=== PATIENT | male | born 1960 | race Two or more races ===

== ENCOUNTER 2017-01-04 13:43 | Emergency (ER) | payer BC, OTHER ==
--- NOTE | 2017-01-04 14:29 | ER Document Report ---
ED Medical Screen (RME) - General Stated Complaint: ABDOMINAL PAIN Notes: patient is a 56 year old male who was recently discharged [facility] on . had most recent paracentesis on 01/01. h/o etoh abuse p/w leaking at one of the sites and abdominal pain f/u with [facility] for 01/10 I have greeted and performed a rapid initial assessment of this patient. A comprehensive ED assessment and evaluation of the patient, analysis of test results and completion of the medical decision making process will be conducted by additional ED providers. TRAVEL OUTSIDE OF THE [place] IN LAST 30 DAYS: No Past Medical History - Immunizations Hx Diphtheria, Pertussis, Tetanus Vaccination: Yes
[2017-01-04 15:49] LABS: ABSOLUTE EOSINOPHILS # (AUTO) 0.1 10^3/uL (0.0-0.6); ABSOLUTE LYMPHOCYTES (AUTO) 0.2 10^3/uL (0.5-4.7); ABSOLUTE MONOCYTES (AUTO) 0.4 10^3/uL (0.1-1.4); ABSOLUTE NEUT (AUTO) 2.1 10^3/uL (1.7-8.2); BASOPHILS % (AUTO) 0.8 % (0-2); EOSINOPHILS % (AUTO) 3.3 % (0-6); HEMATOCRIT 28.1 % (37.9-51.0); HEMOGLOBIN 9.8 g/dL (13.5-17.0); HGB HCT DIFFERENCE 1.3; LYMPHOCYTES % (AUTO) 8.3 % (13-45); MEAN CORPUSCULAR HEMOGLOBIN 36.8 pg (27.0-33.4); MEAN CORPUSCULAR HGB CONC 34.8 g/dL (32.0-36.0); MEAN CORPUSCULAR VOLUME 106 fl (80-97); MONOCYTES % (AUTO) 12.5 % (3-13); RED BLOOD COUNT 2.66 10^6/uL (4.35-5.55); RED CELL DISTRIBUTION WIDTH 16.7 % (11.5-14.0); SEGMENTED NEUTROPHILS % (AUTO) 75.1 % (42-78); WHITE BLOOD COUNT 2.8 10^3/uL (4.0-10.5)
[2017-01-04 15:59] LABS: ALANINE AMINOTRANSFERASE 31 U/L (21-72); ALBUMIN 2.6 g/dL (3.5-5.0); ALKALINE PHOSPHATASE 238 U/L (38-126); ANION GAP 8 (5-19); ASPARTATE AMINO TRANSFERASE 59 U/L (17-59); BILIRUBIN,DIRECT 0.1 mg/dL (0.0-0.3); BILIRUBIN,TOTAL 5.9 mg/dL (0.2-1.3); BLOOD UREA NITROGEN 20 mg/dL (7-20); CALCIUM 8.2 mg/dL (8.4-10.2); CARBON DIOXIDE 25 mmol/L (22-30); CHLORIDE 101 mmol/L (98-107); GLUCOSE 115 mg/dL (75-110); LIPASE 219.9 U/L (23-300); TOTAL PROTEIN 7.3 g/dL (6.3-8.2)
--- NOTE | 2017-01-04 19:49 | ER Document Report ---
ED General - General Chief Complaint: Incision Drainage Stated Complaint: ABDOMINAL PAIN Time seen by provider: 19:44 Mode of Arrival: Ambulatory Information source: Patient Notes: 56-year-old male presents to ED for leakage from his paracentesis that was done on 01/01/17 there is no drainage no redness to the area. He had a saturated dressing over the area which was removed. TRAVEL OUTSIDE OF THE [place] IN LAST 30 DAYS: No - HPI Onset: Other - Paracentesis on 01/01/2017 Onset/Duration: Persistent Quality of pain: Achy Severity: Moderate Pain Level: 4 Associated symptoms: Other - Leakage from paracentesis site Exacerbated by: Movement Relieved by: Denies Similar symptoms previously: Yes Recently seen / treated by doctor: Yes - Related Data Allergies/Adverse Reactions: No Known Allergies Allergy (Unverified 01/04/17 14:27) Past Medical History - General Information source: Patient - Social History Smoking Status: Former Smoker Chew tobacco use (# tins/day): No Frequency of alcohol use: None - Former alcoholic states he does not drink now Drug Abuse: None Occupation: none Lives with: Family Family History: Arthritis, CAD, CVA, Hyperlipidemia, Hypertension Patient has suicidal ideation: No Patient has homicidal ideation: No - Past Medical History Cardiac Medical History: Reports: None Pulmonary Medical History: Reports: None EENT Medical History: Reports: None Neurological Medical History: Reports: None Endocrine Medical History: Reports: None Renal/ Medical History: Reports: None GI Medical History: Reports: Hx Cirrhosis - With ascites Musculoskeltal Medical History: Reports Hx Arthritis, Reports Hx Musculoskeletal Trauma - Fractured right ankle left knee and left rotator cuff injury Skin Medical History: Reports None Psychiatric Medical History: Reports: None Traumatic Medical History: Reports: Hx Fractures Infectious Medical History: Reports: None Past Surgical History: Reports: Hx Abdominal Surgery - multiple paracentesis fo , Hx Orthopedic Surgery - Repair of left knee fractured right ankle fracture, Hx Umbilical Hernia - Immunizations Hx Diphtheria, Pertussis, Tetanus Vaccination: Yes Review of Systems - Review of Systems Constitutional: No symptoms reported EENT: No symptoms reported Cardiovascular: No symptoms reported Respiratory: No symptoms reported Gastrointestinal: Abdomen distended - Ascites, Abdominal pain, Other - Paracentesis site draining Genitourinary: No symptoms reported Male Genitourinary: No symptoms reported Musculoskeletal: No symptoms reported Skin: No symptoms reported Hematologic/Lymphatic: No symptoms reported Neurological/Psychological: No symptoms reported -: Yes All other systems reviewed and negative Physical Exam - Vital signs Vitals: Temp Pulse Resp BP Pulse Ox 97.7 F 87 102 H 119/72 100 01/04/17 14:27 01/04/17 14:27 01/04/17 14:27 01/04/17 14:27 01/04/17 14:27 Interpretation: Normal - General General appearance: Appears well, Alert - HEENT Head: Normocephalic, Atraumatic Eyes: Normal Pupils: PERRL - Respiratory Respiratory status: No respiratory distress Chest status: Nontender Breath sounds: Normal Chest palpation: Normal - Cardiovascular Rhythm: Regular Heart sounds: Normal auscultation Murmur: No - Abdominal Inspection: Normal Distension: Distended, Tympanitic, Other - Ascites Bowel sounds: Normal Tenderness: Tender - Generalized Organomegaly: No organomegaly - Back Back: Normal, Nontender - Extremities General upper extremity: Normal inspection, Nontender, Normal color, Normal ROM , Normal temperature General lower extremity: Normal inspection, Nontender, Normal color, Normal ROM , Normal temperature, Normal weight bearing. No: Summer's sign - Neurological Neuro grossly intact: Yes Cognition: Normal Orientation: AAOx4 [place] Coma Scale Eye Opening: Spontaneous Christina Coma Scale Verbal: Oriented [place] Coma Scale Motor: Obeys Commands [place] Coma Scale Total: 15 Speech: Normal Motor strength normal: LUE, RUE, LLE, RLE Sensory: Normal - Psychological Associated symptoms: Normal affect, Normal mood - Skin Skin Temperature: Warm Skin Moisture: Dry Skin Color: Normal Location of irregularity: Abdomen - Paracentesis site leaking no redness or inflammation at the site Course - Re-evaluation Re-evalutation: 01/04/17 19:48 Rest the knee flange and pouch attached over top of her centesis site to catch drainage and prevent infection of the skin. Patient and instructed on how to apply the appliance and change the back. Patient and instructed to call [facility] and informed them that the site is draining and what has been done through the site. - Vital Signs Vital signs: Temp Pulse Resp BP Pulse Ox 98.5 F 18 L 18 119/62 73 L 01/04/17 20:10 01/04/17 20:10 01/04/17 20:10 01/04/17 20:10 01/04/17 20:10 - Laboratory Result Diagrams: 01/04/17 15:15 01/04/17 15:15 Laboratory results interpreted by me: 01/04/17 01/04/17 15:15 15:15 WBC 2.8 L RBC 2.66 L Hgb 9.8 L Hct 28.1 L MCV 106 H MCH 36.8 H RDW 16.7 H Plt Count 59 L Lymphocytes % 8.3 L Absolute Lymphocytes 0.2 L Sodium 134.0 L Glucose 115 H Calcium 8.2 L Total Bilirubin 5.9 H Alkaline Phosphatase 238 H Albumin 2.6 L Discharge - Discharge Clinical Impression: Ascites due to alcoholic cirrhosis, drainage from paracentesis site left abd Condition: Stable Disposition: HOME, SELF-CARE Additional Instructions: You have her having drainage from your paracentesis site. It is important at this site be kept clean and the contents not stay on your skin. I've applied a drainage bag to the site to collect the drainage. You have been instructed on how to change the bag and change the appliance. She states you have a home health nurse that checks on him they were also be able to help you change the appliance. Please call [facility] and let them know that she paracentesis site is continuing to drain and we have applied a drainage appliance to the site. Please measure all drainage removed from the site and keep a record to follow- up with your lamination spinner. Return to the ED for any complications any increase in fever any redness or irritation to the site or any other questions. FOLLOW-UP CARE: If you have been referred to a physician for follow-up care, call the physician s office for an appointment as you were instructed or within the next two days. If you experience worsening or a significant change in your symptoms, notify the physician immediately or return to the Emergency Department at any time for re-evaluation. Referrals: ОЛЬГА ARVIZU MD [ACTIVE STAFF] - Follow up as needed
[2017-01-04 21:04] VITALS: BP 119/62
== END 2017-01-04 20:10 | disposition home or self-care (01) ==
LOC: ER 13:43
DX: K70.31 Alcoholic cirrhosis of liver with ascites (principal); Z98.890 Other specified postprocedural states; Z87.891 Personal history of nicotine dependence
CPT/HCPCS: 36415; 80053; 82140; 83690; 85025; 99283

== ENCOUNTER 2017-02-18 07:51 | Day surgery (SDC) | payer BC, OTHER ==
[~2017-02-18 07:51] MED LIST: ALBUMIN HUMAN 200 ML IV PRN
[2017-02-18 08:40] LABS: ABSOLUTE EOSINOPHILS # (AUTO) 0.1 10^3/uL (0.0-0.6); ABSOLUTE LYMPHOCYTES (AUTO) 0.3 10^3/uL (0.5-4.7); ABSOLUTE MONOCYTES (AUTO) 0.3 10^3/uL (0.1-1.4); ABSOLUTE NEUT (AUTO) 1.5 10^3/uL (1.7-8.2); BASOPHILS % (AUTO) 1.6 % (0-2); EOSINOPHILS % (AUTO) 3.7 % (0-6); HEMATOCRIT 30.1 % (37.9-51.0); HGB HCT DIFFERENCE 2.9; MEAN CORPUSCULAR HEMOGLOBIN 37.5 pg (27.0-33.4); MEAN CORPUSCULAR HGB CONC 36.5 g/dL (32.0-36.0); MEAN CORPUSCULAR VOLUME 103 fl (80-97); MONOCYTES % (AUTO) 13.2 % (3-13); RED BLOOD COUNT 2.93 10^6/uL (4.35-5.55); RED CELL DISTRIBUTION WIDTH 14.8 % (11.5-14.0); SEGMENTED NEUTROPHILS % (AUTO) 69.5 % (42-78); WHITE BLOOD COUNT 2.2 10^3/uL (4.0-10.5)
[2017-02-18 08:52] LABS: PROTHROMBIN TIME 20.5 SEC (11.4-15.4)
[2017-02-18 08:53] LABS: PARTIAL THROMBOPLASTIN TIME 44.8 SEC (23.5-35.8)
[2017-02-18 08:56] LABS: BLOOD UREA NITROGEN 24 mg/dL (7-20); CREATININE RESULT 0.77 mg/dL (0.52-1.25)
[2017-02-18 09:11] LABS: ANISOCYTOSIS SLIGHT; ROULEAUX SLIGHT
[2017-02-18 13:05] VITALS: BP 107/60
== END 2017-02-18 13:10 | disposition home or self-care (01) ==
LOC: RAD 07:51
PROVIDERS: ATTEND Internal Medicine Gastroenterology
DX: R18.8 Other ascites (principal); K74.60 Unspecified cirrhosis of liver; Z87.891 Personal history of nicotine dependence
CPT/HCPCS: 36415; 84520; 82565; 85025; 85610; 85730; 49083; P9047

== ENCOUNTER 2017-03-26 14:23 | Emergency (ER) | payer MEDICAID, OTHER ==
--- NOTE | 2017-03-26 15:08 | ER Document Report ---
ED Medical Screen (RME) - General Chief Complaint: Altered Mental Status Stated Complaint: ALTERED MENTAL STATUS Mode of Arrival: Wheelchair Information source: Patient, Relative Notes: 56-year-old male history of alcoholic cirrhosis presents with confusion over the past few days. Patient denies any fevers or chills, denies any abdominal pain Patient may or may not be taking his lactulose as prescribed I have greeted and performed a rapid initial assessment of this patient. A comprehensive ED assessment and evaluation of the patient, analysis of test results and completion of the medical decision making process will be conducted by additional ED providers. PHYSICAL EXAMINATION: GENERAL: Chronically ill-appearing male jaundiced HEAD: Atraumatic, normocephalic. EYES: Pupils equal round extraocular movements intact, conjunctiva anicteric ENT: Nares patent NECK: Normal range of motion LUNGS: No respiratory distress Musculoskeletal: Normal range of motion abdomen distended NEUROLOGICAL: Normal speech, normal gait. PSYCH: Normal mood, normal affect. SKIN: Jaundiced TRAVEL OUTSIDE OF THE [place] IN LAST 30 DAYS: No - Related Data Allergies/Adverse Reactions: No Known Allergies Allergy (Verified 03/26/17 14:31) Past Medical History - Past Medical History Cardiac Medical History: Denies: Hx Coronary Artery Disease, Hx Heart Attack, Hx Hypertension Pulmonary Medical History: Denies: Hx Asthma, Hx Bronchitis, Hx COPD, Hx Pneumonia Neurological Medical History: Denies: Hx Cerebrovascular Accident, Hx Seizures Renal/ Medical History: Denies: Hx Peritoneal Dialysis GI Medical History: Reports: Hx Cirrhosis - With ascites Musculoskeltal Medical History: Reports Hx Arthritis, Reports Hx Musculoskeletal Trauma - Fractured right ankle left knee and left rotator cuff injury Traumatic Medical History: Reports: Hx Fractures Past Surgical History: Reports: Hx Abdominal Surgery - multiple paracentesis fo , Hx Orthopedic Surgery - Repair of left knee fractured right ankle fracture, Hx Umbilical Hernia - Immunizations Hx Diphtheria, Pertussis, Tetanus Vaccination: No Physical Exam - Vital signs Vitals: Temp Pulse Resp BP Pulse Ox 98.0 F 91 18 137/83 H 100 03/26/17 14:33 03/26/17 14:33 03/26/17 14:33 03/26/17 14:33 03/26/17 14:33 Course - Vital Signs Vital signs: Temp Pulse Resp BP Pulse Ox 98.0 F 91 18 137/83 H 100 03/26/17 14:33 03/26/17 14:33 03/26/17 14:33 03/26/17 14:33 03/26/17 14:33
[2017-03-26] MEDS ORDERED: LACTULOSE SYRUP 20 GM/30 ML UDCUP PO ONE (15:42)
--- NOTE | 2017-03-26 15:45 | ER Document Report ---
ED General - General Chief Complaint: Altered Mental Status Stated Complaint: ALTERED MENTAL STATUS Time seen by provider: 15:34 Mode of Arrival: Wheelchair Information source: Patient, Relative TRAVEL OUTSIDE OF THE [place] 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 - Related Data Allergies/Adverse Reactions: No Known Allergies Allergy (Verified 03/26/17 14:31) Past Medical History - General Information source: Patient, Relative - Social History Smoking Status: Never Smoker Cigarette use (# per day): No Frequency of alcohol use: 6 patient previously was a heavy drinker, but has not had any alcohol since October 2016. Drug Abuse: None Lives with: Family Family History: Arthritis, CAD, CVA, Hyperlipidemia, Hypertension Patient has suicidal ideation: No Patient has homicidal ideation: No - Past Medical History Cardiac Medical History: Denies: Hx Coronary Artery Disease, Hx Heart Attack, Hx Hypertension Pulmonary Medical History: Denies: Hx Asthma, Hx Bronchitis, Hx COPD, Hx Pneumonia Neurological Medical History: Denies: Hx Cerebrovascular Accident, Hx Seizures Renal/ Medical History: Denies: Hx Peritoneal Dialysis GI Medical History: Reports: Hx Cirrhosis - With ascites Musculoskeltal Medical History: Reports Hx Arthritis, Reports Hx Musculoskeletal Trauma - Fractured right ankle left knee and left rotator cuff injury Traumatic Medical History: Reports: Hx Fractures Past Surgical History: Reports: Hx Abdominal Surgery - multiple paracentesis fo , Hx Orthopedic Surgery - Repair of left knee fractured right ankle fracture, Hx Umbilical Hernia - Immunizations Hx Diphtheria, Pertussis, Tetanus Vaccination: No Review of Systems - Review of Systems Notes: REVIEW OF SYSTEMS: CONSTITUTIONAL : Denies fever, chills, or sweats. Denies recent illness. EENT: Denies eye, ear, throat, or mouth pain or symptoms. Denies nasal or sinus congestion or discharge. Denies throat, tongue, or mouth swelling or difficulty swallowing. CARDIOVASCULAR: Denies chest pain. Denies palpitations or racing or irregular heart beat. Denies ankle edema. RESPIRATORY: Denies cough, cold, or chest congestion. Denies shortness of breath, difficulty breathing, or wheezing. GASTROINTESTINAL: Denies abdominal pain. Denies nausea, vomiting, or diarrhea. Denies blood in vomitus, stools, or per rectum. Denies black, tarry stools. Denies constipation. Patient does report some mild abdominal distention, but states it has been worse in the past. GENITOURINARY: Denies difficulty urinating, painful urination, burning, frequency, blood in urine, or discharge. MUSCULOSKELETAL: Denies back or neck pain or stiffness. Denies joint pain or swelling. SKIN: Denies rash, lesions or sores. HEMATOLOGIC : Denies easy bruising or bleeding. LYMPHATIC: Denies swollen, enlarged glands. NEUROLOGICAL: Denies passing out or loss of consciousness. Denies dizziness or lightheadedness. Denies headache. Denies weakness or paralysis or loss of use of either side. Denies problems with gait or speech. Denies sensory loss, numbness, or tingling. Denies seizures. PSYCHIATRIC: Denies anxiety or stress. Denies depression, suicidal ideation, or homicidal ideation. ALL OTHER SYSTEMS REVIEWED AND NEGATIVE. Dictation was performed using [employer] voice recognition software Physical Exam - Vital signs Vitals: Temp Pulse Resp BP Pulse Ox 98.0 F 91 18 137/83 H 100 03/26/17 14:33 03/26/17 14:33 03/26/17 14:33 03/26/17 14:33 03/26/17 14:33 - Notes Notes: PHYSICAL EXAMINATION: GENERAL: Well-appearing, well-nourished and in no acute distress. HEAD: Atraumatic, normocephalic. EYES: Pupils equal round and reactive to light, extraocular movements intact, sclera icteric, conjunctiva otherwise normal. ENT: Nares patent, oropharynx clear without exudates. Moist mucous membranes. NECK: Normal range of motion, supple without lymphadenopathy LUNGS: Breath sounds clear to auscultation bilaterally and equal. No wheezes rales or rhonchi. HEART: Regular rate and rhythm without murmurs ABDOMEN: Soft, nontender abdomen. No guarding, no rebound. No masses appreciated. Mod ascites. Musculoskeletal: Normal range of motion, no pitting or edema. No cyanosis. NEUROLOGICAL: Cranial nerves grossly intact. Normal speech. Normal sensory, motor exams. Question mild asterixis versus tremor. Patient thinks it's 1982 and the Pres. is [place]. No unilateral motor or sensory deficits noted. PSYCH: Normal mood, normal affect. SKIN: Warm, Dry, normal turgor, no rashes or lesions noted. Course - Re-evaluation Re-evalutation: 03/26/17 19:19 No evidence for hepatic encephalopathy. There is no gross evidence for acute hepatitis, as patient's elevated bilirubin and liver enzymes consistent with previous values. As no evidence for significant electrolyte imbalance or anemia or suggestion for sepsis. There is no evidence for CVA or intracranial acute injury. No severe dehydration. - Vital Signs Vital signs: Temp Pulse Resp BP Pulse Ox 98.0 F 85 18 125/82 100 03/26/17 14:33 03/26/17 19:33 03/26/17 18:16 03/26/17 19:33 03/26/17 18:16 - Laboratory Result Diagrams: 03/26/17 15:34 03/26/17 15:34 Laboratory results interpreted by me: 03/26/17 03/26/17 03/26/17 15:34 15:34 15:34 WBC 3.2 L RBC 3.24 L Hgb 11.7 L Hct 32.8 L MCV 101 H MCH 36.3 H RDW 15.4 H Plt Count 43 L Seg Neutrophils % 81.5 H Lymphocytes % 7.3 L Absolute Lymphocytes 0.2 L PT 18.6 H Carbon Dioxide 20 L BUN 21 H Glucose 120 H Total Bilirubin 8.3 H Direct Bilirubin 3.4 H AST 80 H Alkaline Phosphatase 250 H Total Protein 8.9 H Urine Protein Urine Blood Urine Bilirubin Urine Urobilinogen 03/26/17 18:12 WBC RBC Hgb Hct MCV MCH RDW Plt Count Seg Neutrophils % Lymphocytes % Absolute Lymphocytes PT Carbon Dioxide BUN Glucose Total Bilirubin Direct Bilirubin AST Alkaline Phosphatase Total Protein Urine Protein 30 H Urine Blood LARGE H Urine Bilirubin SMALL H Urine Urobilinogen 2.0 H Discharge - Discharge Clinical Impression: Altered mental status Qualifiers: Altered mental status type: unspecified Qualified Code(s): R41.82 - Altered mental status, unspecified Condition: Stable Disposition: HOME, SELF-CARE Instructions: Altered Mental Status ([facility]) Additional Instructions: Take your medications regularly as instructed.
[2017-03-26 15:50] LABS: ABSOLUTE EOSINOPHILS # (AUTO) 0.1 10^3/uL (0.0-0.6); ABSOLUTE LYMPHOCYTES (AUTO) 0.2 10^3/uL (0.5-4.7); ABSOLUTE MONOCYTES (AUTO) 0.3 10^3/uL (0.1-1.4); ABSOLUTE NEUT (AUTO) 2.6 10^3/uL (1.7-8.2); BASOPHILS % (AUTO) 0.5 % (0-2); EOSINOPHILS % (AUTO) 2.1 % (0-6); HEMATOCRIT 32.8 % (37.9-51.0); HEMOGLOBIN 11.7 g/dL (13.5-17.0); HGB HCT DIFFERENCE 2.3; LYMPHOCYTES % (AUTO) 7.3 % (13-45); MEAN CORPUSCULAR HEMOGLOBIN 36.3 pg (27.0-33.4); MEAN CORPUSCULAR HGB CONC 35.8 g/dL (32.0-36.0); MEAN CORPUSCULAR VOLUME 101 fl (80-97); MONOCYTES % (AUTO) 8.6 % (3-13); RED BLOOD COUNT 3.24 10^6/uL (4.35-5.55); RED CELL DISTRIBUTION WIDTH 15.4 % (11.5-14.0); SEGMENTED NEUTROPHILS % (AUTO) 81.5 % (42-78); WHITE BLOOD COUNT 3.2 10^3/uL (4.0-10.5)
[2017-03-26 16:00] LABS: PROTHROMBIN TIME 18.6 SEC (11.4-15.4)
[2017-03-26 16:07] LABS: MAGNESIUM 1.9 mg/dL (1.6-2.3)
[2017-03-26 16:08] LABS: ALCOHOL < 10 mg/dL (NONE DETECTED)
[2017-03-26 16:45] LABS: ALANINE AMINOTRANSFERASE 49 U/L (21-72); ALBUMIN 3.7 g/dL (3.5-5.0); ALKALINE PHOSPHATASE 250 U/L (38-126); ANION GAP 15 (5-19); ASPARTATE AMINO TRANSFERASE 80 U/L (17-59); BILIRUBIN,DIRECT 3.4 mg/dL (0.0-0.4); BILIRUBIN,TOTAL 8.3 mg/dL (0.2-1.3); BLOOD UREA NITROGEN 21 mg/dL (7-20); CALCIUM 9.4 mg/dL (8.4-10.2); CARBON DIOXIDE 20 mmol/L (22-30); CHLORIDE 104 mmol/L (98-107); CREATININE RESULT 0.82 mg/dL (0.52-1.25); GLUCOSE 120 mg/dL (75-110); LIPASE 206.1 U/L (23-300); POTASSIUM 4.3 mmol/L (3.6-5.0); SODIUM 138.7 mmol/L (137-145); TOTAL PROTEIN 8.9 g/dL (6.3-8.2)
[2017-03-26 18:39] LABS: APPEARANCE,URINE SLIGHTLY-CLOUDY; BILIRUBIN,URINE SMALL (NEGATIVE); GLUCOSE, URINE NEGATIVE (NEGATIVE); KETONES,URINE NEGATIVE (NEGATIVE); LEUKOCYTE ESTERASE,URINE NEGATIVE (NEGATIVE); NITRITE,URINE NEGATIVE (NEGATIVE); PROTEIN,URINE 30 mg/dL (NEGATIVE); URINE SPECIFIC GRAVITY 1.026
[2017-03-26 18:47] LABS: URINE BARBITURATES SCREEN NEGATIVE; URINE METHADONE SCREEN NEGATIVE; URINE OPIATES LOW NEGATIVE; URINE PHENCYCLIDINE SCREEN NEGATIVE
[2017-03-26 20:55] VITALS: BP 117/88
== END 2017-03-26 21:02 | disposition home or self-care (01) ==
LOC: ER 14:23
DX: R41.82 Altered mental status, unspecified (principal); K70.30 Alcoholic cirrhosis of liver without ascites; Z91.14 Patient's other noncompliance with medication regimen
CPT/HCPCS: 99285; 36415; 80307 ×2; 82140; 83690; 83735; 85025; 85610; 80053; 81001; 70450; J3490

== ENCOUNTER 2017-04-11 08:14 | Day surgery (SDC) | payer MEDICAID, OTHER ==
[2017-04-11 08:51] LABS: HEMATOCRIT 26.1 % (37.9-51.0); HEMOGLOBIN 9.2 g/dL (13.5-17.0); HGB HCT DIFFERENCE 1.5; MEAN CORPUSCULAR HEMOGLOBIN 36.6 pg (27.0-33.4); MEAN CORPUSCULAR HGB CONC 35.3 g/dL (32.0-36.0); MEAN CORPUSCULAR VOLUME 104 fl (80-97); RED BLOOD COUNT 2.52 10^6/uL (4.35-5.55); WHITE BLOOD COUNT 5.4 10^3/uL (4.0-10.5)
[2017-04-11 08:56] LABS: PROTHROMBIN TIME 22.8 SEC (11.4-15.4)
[2017-04-11 08:57] LABS: PARTIAL THROMBOPLASTIN TIME 47.6 SEC (23.5-35.8)
[2017-04-11 09:06] LABS: BLOOD UREA NITROGEN 37 mg/dL (7-20); CREATININE RESULT 1.07 mg/dL (0.52-1.25)
[2017-04-11 12:35] VITALS: BP 102/58
== END 2017-04-11 13:00 | disposition home or self-care (01) ==
LOC: RAD 08:14
PROVIDERS: ATTEND Internal Medicine Gastroenterology
PROC: 0W9F3ZZ Drainage of Abdominal Wall, Percutaneous Approach (ICD-10-PCS; principal; 2017-04-11)
DX: K70.31 Alcoholic cirrhosis of liver with ascites (principal); Z87.891 Personal history of nicotine dependence
CPT/HCPCS: 36415; 84520; 82565; 85027; 85610; 85730; 49083; P9047

== ENCOUNTER 2017-04-11 16:18 | Inpatient (IN) | payer MEDICAID, OTHER ==
--- NOTE | 2017-04-11 17:14 | ER Document Report ---
ED Medical Screen (RME) - General Mode of Arrival: Wheelchair Information source: Patient TRAVEL OUTSIDE OF THE [place] IN LAST 30 DAYS: No <SHAGGY AMATO - Last Filed: 04/11/17 17:08> <ALLISON HAMLIN - Last Filed: 04/11/17 17:38> - General Chief Complaint: Leg Pain Stated Complaint: UPPER RIGHT LEG PAIN Time Seen by Provider: 04/11/17 17:08 Notes: Patient presents to the ED with c/o right leg pain, he is not sure what happened. Patient has a history of cirrhosis and ascites. He was tapped this morning and was sent him over here. Right inner thigh is warm very tender to touch all the way down to his right calf. Good pedal pulse and brisk cap refill no history of DVT, no recent trip. (SHAGGY AMATO) - Related Data Allergies/Adverse Reactions: No Known Allergies Allergy (Verified 04/11/17 17:05) Past Medical History - Past Medical History Cardiac Medical History: Denies: Hx Coronary Artery Disease, Hx Heart Attack, Hx Hypertension Pulmonary Medical History: Denies: Hx Asthma, Hx Bronchitis, Hx COPD, Hx Pneumonia Neurological Medical History: Denies: Hx Cerebrovascular Accident, Hx Seizures Renal/ Medical History: Denies: Hx Peritoneal Dialysis GI Medical History: Reports: Hx Cirrhosis - With ascites Musculoskeltal Medical History: Reports Hx Arthritis, Reports Hx Musculoskeletal Trauma - Fractured right ankle left knee and left rotator cuff injury Traumatic Medical History: Reports: Hx Fractures Past Surgical History: Reports: Hx Abdominal Surgery - multiple paracentesis fo , Hx Orthopedic Surgery - Repair of left knee fractured right ankle fracture, Hx Umbilical Hernia - Immunizations Hx Diphtheria, Pertussis, Tetanus Vaccination: No <SHAGGY AMATO - Last Filed: 04/11/17 17:08> Course <SHAGGY AMATO - Last Filed: 04/11/17 17:08> - Laboratory Result Diagrams: 04/11/17 17:20 04/11/17 17:20 <ALLISON HAMLIN - Last Filed: 04/11/17 17:38> - Re-evaluation Re-evalutation: 04/11/17 17:37 Patient is upgraded to a yellow based on vital signs and altered mental status. Patient is febrile and tachycardic, he is at risk for sepsis given his immunocompromised state from cirrhosis. (ALLISON HAMLIN) - Vital Signs Vital signs: Temp Pulse Resp BP Pulse Ox 101.2 F H 93 21 H 117/56 L 98 04/11/17 16:26 04/11/17 16:26 04/11/17 16:26 04/11/17 16:26 04/11/17 16:26
[2017-04-11] MEDS ORDERED: OXYCODONE HCL SR 10 MG TABLET PO ONE (17:15)
[2017-04-11] MEDS ORDERED: NORMAL SALINE 1000 ML 1,000 ML IV ONE ×2 (17:37→21:37)
[2017-04-11 17:44] LABS: PROTHROMBIN TIME 24.7 SEC (11.4-15.4)
[2017-04-11 17:53] LABS: ALANINE AMINOTRANSFERASE 36 U/L (21-72); ALBUMIN 2.8 g/dL (3.5-5.0); ALKALINE PHOSPHATASE 91 U/L (38-126); ANION GAP 10 (5-19); ASPARTATE AMINO TRANSFERASE 36 U/L (17-59); BILIRUBIN,DIRECT 6.2 mg/dL (0.0-0.4); BILIRUBIN,TOTAL 11.8 mg/dL (0.2-1.3); BLOOD UREA NITROGEN 34 mg/dL (7-20); CALCIUM 8.6 mg/dL (8.4-10.2); CARBON DIOXIDE 22 mmol/L (22-30); CHLORIDE 101 mmol/L (98-107); CREATININE RESULT 1.08 mg/dL (0.52-1.25); GLUCOSE 122 mg/dL (75-110); POTASSIUM 4.2 mmol/L (3.6-5.0); SODIUM 133.2 mmol/L (137-145)
[2017-04-11 17:55] LABS: HEMATOCRIT 25.1 % (37.9-51.0); HEMOGLOBIN 8.9 g/dL (13.5-17.0); HGB HCT DIFFERENCE 1.6; MEAN CORPUSCULAR HEMOGLOBIN 36.6 pg (27.0-33.4); MEAN CORPUSCULAR HGB CONC 35.3 g/dL (32.0-36.0); MEAN CORPUSCULAR VOLUME 104 fl (80-97); RED BLOOD COUNT 2.42 10^6/uL (4.35-5.55)
[2017-04-11 18:00] LABS: BAND NEUTROPHILS % (MANUAL) 2 % (3-5); BASOPHILS % (MANUAL) 0 % (0-2); EOSINOPHILS % (MANUAL) 0 % (0-6); LYMPHOCYTES % (MANUAL) 1 % (13-45); TOTAL CELLS COUNTED 100
[2017-04-11 18:02] LABS: ANISOCYTOSIS 1+
[2017-04-11] MEDS ORDERED: IBUPROFEN 600 MG TABLET PO ONE (18:05)
[2017-04-11] MEDS ORDERED: CLINDAMYCIN 600 MG/D5W RTU 50 ML IV ONE (18:25)
[2017-04-11] MEDS ORDERED: VANCOMYCIN HCL INJ 1000 MG VIAL IV ONE (18:26)
[2017-04-11] MEDS ORDERED: PIPERACILLIN/TAZOBACTAM 3.375 GM VIAL IV ONE (18:26)
--- NOTE | 2017-04-11 18:33 | ER Document Report ---
ED Extremity Problem, Lower - General Chief Complaint: Leg Pain Stated Complaint: UPPER RIGHT LEG PAIN Time Seen by Provider: 04/11/17 17:08 Mode of Arrival: Wheelchair Notes: The patient is a 56-year-old male, past medical history cirrhosis, chronic ascites, presents with 1 day of increasing redness and pain over his right upper thigh. He is also having subjective fevers during this same time period. He had a routine paracentesis performed by IR earlier today, but he said that he did not have a fever at that time is having no abdominal pain. He denies numbness, tingling, injury, groin involvement, difficulty walking, abdominal pain, chest pain, shortness of breath, nausea or vomiting. TRAVEL OUTSIDE OF THE [place] IN LAST 30 DAYS: No - Related Data Allergies/Adverse Reactions: No Known Allergies Allergy (Verified 04/11/17 17:05) Past Medical History - General Information source: Patient - Social History Smoking Status: Unknown if Ever Smoked Family History: Arthritis, CAD, CVA, Hyperlipidemia, Hypertension Patient has suicidal ideation: No Patient has homicidal ideation: No - Past Medical History Cardiac Medical History: Denies: Hx Coronary Artery Disease, Hx Heart Attack, Hx Hypertension Pulmonary Medical History: Denies: Hx Asthma, Hx Bronchitis, Hx COPD, Hx Pneumonia Neurological Medical History: Denies: Hx Cerebrovascular Accident, Hx Seizures Renal/ Medical History: Denies: Hx Peritoneal Dialysis GI Medical History: Reports: Hx Cirrhosis - With ascites Musculoskeltal Medical History: Reports Hx Arthritis, Reports Hx Musculoskeletal Trauma - Fractured right ankle left knee and left rotator cuff injury Traumatic Medical History: Reports: Hx Fractures Past Surgical History: Reports: Hx Abdominal Surgery - multiple paracentesis fo , Hx Orthopedic Surgery - Repair of left knee fractured right ankle fracture, Hx Umbilical Hernia - Immunizations Hx Diphtheria, Pertussis, Tetanus Vaccination: No Review of Systems - Review of Systems Notes: REVIEW OF SYSTEMS: CONSTITUTIONAL: +fevers, -chills EENT: -eye pain, -difficulty swallowing, -nasal congestion CARDIOVASCULAR: -chest pain, -syncope. RESPIRATORY: -cough, -SOB GASTROINTESTINAL: -abdominal pain, -nausea, -vomiting, -diarrhea GENITOURINARY: -dysuria, -hematuria MUSCULOSKELETAL: -back pain, -neck pain SKIN: +right thigh rash HEMATOLOGIC: -easy bruising or bleeding. LYMPHATIC: -swollen, enlarged glands. NEUROLOGICAL: -altered mental status or loss of consciousness, -headache, - neurologic symptoms PSYCHIATRIC: -anxiety, -depression. ALL OTHER SYSTEMS REVIEWED AND NEGATIVE. Physical Exam - Vital signs Vitals: Temp Pulse Resp BP Pulse Ox 101.2 F H 93 21 H 117/56 L 98 04/11/17 16:26 04/11/17 16:26 04/11/17 16:26 04/11/17 16:26 04/11/17 16:26 - Notes Notes: PHYSICAL EXAMINATION: GENERAL: In no acute distress. HEAD: Atraumatic, normocephalic. EYES: Pupils equal round and reactive to light, extraocular movements intact, sclera icteric ENT: nares patent, oropharynx clear without exudates. Moist mucous membranes. NECK: Normal range of motion, supple without lymphadenopathy LUNGS: Breath sounds clear to auscultation bilaterally and equal. No wheezes rales or rhonchi. HEART: Regular rate and rhythm without murmurs ABDOMEN: Mild fluid wave, soft, nontender, normoactive bowel sounds. No guarding, no rebound. No masses appreciated. EXTREMITIES: Right anterior and medial thigh with tender erythematous confluent non-blanchable macular rash, no crepitus, strong distal pulses NEUROLOGICAL: Cranial nerves grossly intact. Normal speech, normal gait. Normal sensory, motor, and reflex exams. PSYCH: Normal mood, normal affect. - Extremities Left calf in cm: 30 Right calf in cm: 30 Course - Re-evaluation Re-evalutation: No crepitus to suggest necrotizing fasciitis. With his tachycardia, fever and immunosuppressed state with cirrhosis, will maira the site of his cellulitis and begin antibiotics. Patient's white count is 4.0, which is slightly higher than his normal 2.5. His thrombocytopenia is baseline for him. He has a lactate of 2.8, which may indicate the severity of this infection, but with his liver dysfunction, it is difficult to clear the lactate. His blood pressure decreased to 87/52 despite 1 L normal saline and antibiotics. While being monitored in the emergency room, his cellulitis spread outside of the marked line when I first saw him. He will require inpatient admission for further monitoring and IV antibiotics. His primary care physician is Dr. Pallavi Gonzalez. 04/11/17 21:[address] Chaudhari and he has accepted patient to Telemetry as Inpatient. - Vital Signs Vital signs: Temp Pulse Resp BP Pulse Ox 98.7 F 93 20 103/67 97 04/11/17 19:23 04/11/17 16:26 04/11/17 18:21 04/11/17 18:21 04/11/17 18:21 - Laboratory Result Diagrams: 04/11/17 17:20 04/11/17 17:20 Laboratory results interpreted by me: 04/11/17 04/11/17 04/11/17 17:20 17:20 17:20 RBC 2.42 L Hgb 8.9 L Hct 25.1 L MCV 104 H MCH 36.6 H RDW 16.0 H Plt Count 53 L Seg Neuts % (Manual) 84 H Band Neutrophils % 2 L Lymphocytes % (Manual) 1 L Abs Lymphs (Manual) 0.0 L PT 24.7 H Sodium 133.2 L BUN 34 H Glucose 122 H Lactic Acid Total Bilirubin 11.8 H Direct Bilirubin 6.2 H Albumin 2.8 L 04/11/17 17:48 RBC Hgb Hct MCV MCH RDW Plt Count Seg Neuts % (Manual) Band Neutrophils % Lymphocytes % (Manual) Abs Lymphs (Manual) PT Sodium BUN Glucose Lactic Acid 2.8 H Total Bilirubin Direct Bilirubin Albumin - Diagnostic Test Radiology reviewed: Image reviewed, Reports reviewed Radiology results interpreted by me: REJI DVT US: No DVT Discharge - Discharge Clinical Impression: Cellulitis Qualifiers: Site of cellulitis: extremity Site of cellulitis of extremity: lower extremity Laterality: right Qualified Code(s): L03.115 - Cellulitis of right lower limb Condition: Serious Disposition: ADMITTED INPATIENT Admitting Provider: [place] [facility] Unit Admitted: Telemetry Referrals: PALLAVI TOVAR FNP [Primary Care Provider] - Follow up as needed
[2017-04-11] MEDS ORDERED: NORMAL SALINE 500 ML IV ONE (20:25)
[2017-04-11] MEDS ORDERED: PHYTONADIONE INJ 10 MG/1 ML AMPULE SUBCUT ONE (21:33)
[2017-04-11] MEDS ORDERED: ONDANSETRON HCL INJ/PF 4 MG/2 ML SDV IV PRN (21:33)
[2017-04-11] MEDS ORDERED: MAGNESIUM HYDROXIDE SUSP 30 ML UDCUP PO PRN (21:33)
[2017-04-11] MEDS ORDERED: ALBUMIN HUMAN 50 ML IV SCH (21:36)
[2017-04-11] MEDS ORDERED: THIAMINE HCL 100 MG, FOLIC ACID 1 MG in NORMAL SALINE 50 ML IV SCH (21:45)
[2017-04-11] MEDS ORDERED: VANCOMYCIN HCL 0 MG in DEXTROSE 5%-WATER 250 ML IV NR (21:45)
[2017-04-11] MEDS ORDERED: CEFOTAXIME SODIUM 1 GM in DEXTROSE 5%-WATER 50 ML IV SCH (22:00)
[2017-04-11] MEDS ORDERED: VANCOMYCIN HCL 1,000 MG in DEXTROSE 5%-WATER 250 ML IV SCH (22:00)
[2017-04-11] MEDS ORDERED: LACTULOSE PO SCH (22:00)
[2017-04-11 23:14] LABS: FOLATE 8.18 ng/mL (>2.76)
[2017-04-12] MEDS ORDERED: FOLIC ACID INJ 5 MG/1 ML 10 ML VIAL IV PRN (00:09)
[2017-04-12] MEDS ORDERED: THIAMINE HCL INJ 200 MG/2 ML VIAL IV PRN (00:09)
--- NOTE | 2017-04-12 00:43 | PDOC H&P ---
History of Present Illness Admission Date/PCP: 04/11/17 21:33 JUDIE JOSEPH Patient complains of: Right-sided pain and erythema History of Present Illness: KENNETH WELCH is a 56 year old male with a past medical history of alcoholism with last drink 6 months ago, end-stage hepatic cirrhosis, recurrent third spacing with ascites requiring paracentesis, anemia of chronic disease, thrombocytopenia and coagulopathy. He had been in his usual state of health until approximately 3 days ago noting right upper thigh erythema pain and a temperature of 100.9 which has gradually worsened over the last 3 days prompting him to seek evaluation emergency room where his found to have an irregular area of erythema of the right anterior medial aspect of the thigh approximately 40 cm x 20 cm with ecchymosis, thrombocytopenia a 53, anemia of chronic disease with a hemoglobin of 9, coagulopathy with an INR of 2.1. He started on empiric antibiotics and referred to the hospitalist for admission. Patient admits to some abdominal pain and nausea without vomiting. No chest pain palpitations or shortness of breath. Past Medical History Cardiac Medical History: Denies: Coronary Artery Disease, Myocardial Infarction, Hypertension Pulmonary Medical History: Denies: Asthma, Bronchitis, Chronic Obstructive Pulmonary Disease (COPD), Pneumonia Neurological Medical History: Denies: Seizures GI Medical History: Reports: Cirrhosis - With ascites Musculoskeltal Medical History: Reports: Arthritis Hematology: Reports: Anemia, Other - Thrombocytopenia and coagulopathy Denies: Hemophilia, Sickle Cell Disease Past Surgical History Past Surgical History: Reports: Orthopedic Surgery - Repair of left knee fractured right ankle fracture Social History Information Source: Patient Lives with: Family Smoking Status: Unknown if Ever Smoked Frequency of Alcohol Use: None Drugs: None - Advance Directive Resuscitation Status: Full Code Family History Family History: Arthritis, CAD, CVA, Hyperlipidemia, Hypertension Parental Family History Reviewed: Yes Children Family History Reviewed: Yes Sibling(s) Family History Reviewed.: Yes Medication/Allergy Home Medications: Cyclobenzaprine HCl [Flexeril 5 mg Tablet] 5 mg PO DAILY 02/18/17 Furosemide [Lasix] 40 mg PO DAILY 02/18/17 Lactulose 10 ml PO QHS 02/18/17 Lactulose 45 ml PO DAILY 02/18/17 Spironolactone [Aldactone 100 mg Tablet] 1 tab PO DAILY 02/18/17 Allergies/Adverse Reactions: No Known Allergies Allergy (Verified 04/11/17 17:05) Review of Systems Constitutional: PRESENT: anorexia, chills, fatigue, weakness, weight gain, other - Profound jaundice throughout, cachexia with temporal wasting, chronically ill-appearing Eyes: ABSENT: visual disturbances Ears: ABSENT: hearing changes Cardiovascular: ABSENT: chest pain, dyspnea on exertion, edema, orthropnea, palpitations Respiratory: ABSENT: cough, hemoptysis Gastrointestinal: PRESENT: abdominal pain, heartburn, nausea. ABSENT: bloating , diarrhea, dysphagia, hematemesis, hematochezia, melena Genitourinary: ABSENT: dysuria, hematuria Musculoskeletal: ABSENT: joint swelling Integumentary: ABSENT: rash, wounds Neurological: ABSENT: abnormal gait, abnormal speech, confusion, dizziness, focal weakness, syncope Psychiatric: ABSENT: anxiety, depression, homidical ideation, suicidal ideation Endocrine: ABSENT: cold intolerance, heat intolerance, polydipsia, polyuria Hematologic/Lymphatic: PRESENT: easy bruising. ABSENT: easy bleeding Physical Exam Vital Signs: Temp Pulse Resp BP Pulse Ox 98.7 F 93 12 93/56 L 99 04/11/17 19:23 04/11/17 16:26 04/11/17 23:00 04/11/17 22:01 04/11/17 23:00 General appearance: PRESENT: cooperative, mild distress, thin, other - Global profound jaundice, temporal wasting, cachexia and chronically ill-appearing Head exam: PRESENT: atraumatic, normocephalic Eye exam: PRESENT: conjunctiva pale, scleral icterus. ABSENT: conjunctiva pink Ear exam: PRESENT: normal external ear exam Mouth exam: PRESENT: moist, tongue midline Neck exam: ABSENT: carotid bruit, JVD, lymphadenopathy, thyromegaly Respiratory exam: PRESENT: clear to auscultation melody. ABSENT: rales, rhonchi, wheezes Cardiovascular exam: PRESENT: RRR, +S1, +S2, tachycardia. ABSENT: diastolic murmur, rubs, systolic murmur Pulses: PRESENT: normal dorsalis pedis pul Vascular exam: PRESENT: normal capillary refill GI/Abdominal exam: PRESENT: ascites, diminished bowel sounds, distended, hypoactive bowel sounds, organolmegaly, soft, tenderness. ABSENT: guarding, hernia, mass Rectal exam: PRESENT: deferred Extremities exam: PRESENT: full ROM. ABSENT: calf tenderness, clubbing, pedal edema Neurological exam: PRESENT: alert, awake, oriented to person, oriented to place , oriented to time, oriented to situation, CN II-XII grossly intact. ABSENT: motor sensory deficit Psychiatric exam: PRESENT: appropriate affect, normal mood. ABSENT: homicidal ideation, suicidal ideation Skin exam: PRESENT: dry, erythema - As per H PI large irregular area of erythema and ecchymosis to the right upper anterior medial thigh, intact, jaundice, warm. ABSENT: cyanosis, rash Results Laboratory Results: 04/11/17 22:10 Lactic Acid 1.4 Impressions: Venous Doppler Study 04/11/17 17:15 IMPRESSION: NO EVIDENCE OF DVT OR SVT IN THE RIGHT LEG. Femur X-Ray 04/11/17 20:04 IMPRESSION: NO RADIOGRAPHIC EVIDENCE OF ACUTE INJURY. Assessment & Plan - Diagnosis (1) Sepsis Is this a current diagnosis for this admission?: YesPlan: Secondary to right thigh cellulitis versus SBP complicated by hepatic cirrhosis. He'll receive an IV fluid challenge with albumen given intravascular depletion. Consider pressors and/or Solu-Cortef (2) Cellulitis of right thigh Is this a current diagnosis for this admission?: YesPlan: Acute problem. Patient admitted to a general medical floor, area outlined, empiric antibiotics, blood culture and follow-up CBC (3) SBP (spontaneous bacterial peritonitis) Is this a current diagnosis for this admission?: YesPlan: Abdominal distention with pain recent paracentesis. Albumin and cefoxitin follow-up blood cultures and CBC (4) Anemia Is this a current diagnosis for this admission?: YesPlan: Microcytic the likely secondary to chronic disease will obtain iron studies (5) Hepatic cirrhosis Is this a current diagnosis for this admission?: YesPlan: Supportive care anticipate third spacing, consider paracentesis or abdomen (6) Coagulopathy Is this a current diagnosis for this admission?: YesPlan: Secondary to hepatic cirrhosis subcutaneous vitamin K and reevaluation of INR (7) Thrombocytopenia Is this a current diagnosis for this admission?: YesPlan: Secondary to hepatic cirrhosis follow-up CBC - Time Time Spent: 50 to 70 Minutes - Inpatient Certification Medical Necessity: Need Close Monitoring Due to Risk of Patient Decompensation
[2017-04-12] MEDS ORDERED: ALBUMIN HUMAN 50 ML IV SCH (01:00)
[2017-04-12 02:32] LABS: URINE BARBITURATES SCREEN NEGATIVE; URINE METHADONE SCREEN NEGATIVE; URINE OPIATES LOW NEGATIVE; URINE PHENCYCLIDINE SCREEN NEGATIVE
[2017-04-12 06:13] LABS: HEMATOCRIT 21.9 % (37.9-51.0); HGB HCT DIFFERENCE 1.2; MEAN CORPUSCULAR HEMOGLOBIN 36.3 pg (27.0-33.4); MEAN CORPUSCULAR HGB CONC 35.1 g/dL (32.0-36.0); MEAN CORPUSCULAR VOLUME 104 fl (80-97); RED BLOOD COUNT 2.11 10^6/uL (4.35-5.55); RED CELL DISTRIBUTION WIDTH 15.9 % (11.5-14.0)
[2017-04-12 06:18] LABS: WHITE BLOOD COUNT 2.4 10^3/uL (4.0-10.5)
[2017-04-12 06:21] LABS: ALANINE AMINOTRANSFERASE 32 U/L (21-72); ALBUMIN 2.2 g/dL (3.5-5.0); ALKALINE PHOSPHATASE 81 U/L (38-126); ANION GAP 8 (5-19); ASPARTATE AMINO TRANSFERASE 24 U/L (17-59); BILIRUBIN,DIRECT 4.7 mg/dL (0.0-0.4); BLOOD UREA NITROGEN 31 mg/dL (7-20); CALCIUM 7.7 mg/dL (8.4-10.2); CARBON DIOXIDE 21 mmol/L (22-30); CHLORIDE 103 mmol/L (98-107); CREATININE RESULT 0.98 mg/dL (0.52-1.25); GLUCOSE 114 mg/dL (75-110); POTASSIUM 3.5 mmol/L (3.6-5.0); TOTAL PROTEIN 5.7 g/dL (6.3-8.2)
[2017-04-12 06:22] LABS: HEMOGLOBIN 7.7 g/dL (13.5-17.0)
[2017-04-12 06:28] LABS: BAND NEUTROPHILS % (MANUAL) 1 % (3-5); BASOPHILS % (MANUAL) 0 % (0-2); EOSINOPHILS % (MANUAL) 1 % (0-6); LYMPHOCYTES % (MANUAL) 8 % (13-45); TOTAL CELLS COUNTED 100
[2017-04-12 06:30] LABS: ANISOCYTOSIS 1+; TOXIC GRANULATION 1+; TOXIC VACUOLATION PRESENT
[2017-04-12 06:47] LABS: BILIRUBIN,TOTAL 9.2 mg/dL (0.2-1.3)
[2017-04-12] MEDS: PIPERACILLIN SODIUM/TAZOBACTAM 3.375 GM in NORMAL SALINE 100 ML IV SCH ×3 (08:51→21:47)
[2017-04-12] MEDS: IPRATROPIUM/ALBUTEROL 0.5-2.5 MG/3 ML AMPUL NEB PRN (09:59)
[2017-04-12] MEDS ORDERED: LACTULOSE PO SCH (10:00)
[2017-04-12] MEDS ORDERED: THIAMINE HCL 100 MG, FOLIC ACID 1 MG in NORMAL SALINE 50 ML IV SCH (10:00)
[2017-04-12] MEDS: LACTULOSE SYRUP 20 GM/30 ML UDCUP PO SCH ×2 (10:12→21:52)
[2017-04-12] MEDS: DOCUSATE SODIUM 100 MG CAPSULE PO SCH ×2 (10:13→17:38)
[2017-04-12] MEDS: VANCOMYCIN HCL 1,000 MG in DEXTROSE 5%-WATER 250 ML IV SCH ×2 (10:13→22:03)
--- NOTE | 2017-04-12 12:45 | PDOC PROGRESS REPORT ---
Subjective Progress Note for:: 04/12/17 Subjective:: This is a follow-up visit for cirrhosis of the liver with large abdominal ascites. Patient was seen today at the bedside and tells me that he had paracentesis . He has great concern because he feels that his abdomen is hard and that the fluid is artery back. I have informed him of his blood culture results and explained that he has bacteria growing in the blood. I have also explained that we have concerns that he could have infected abdominal fluid And that he is being treated as though he does. He tells me that he usually takes more time for the fluid re-accumulates. It appears as though he may have had about 6 L taken off as an outpatient yesterday. Currently he denies any chest pain or shortness of breath. He also has a rash on his right thigh. He expresses tenderness of the right lower extremity. He denies any injuries to his leg. Physical Exam Vital Signs: Temp Pulse Resp BP Pulse Ox 97.9 F 72 18 100/51 L 93 04/12/17 08:15 04/12/17 09:59 04/12/17 09:59 04/12/17 08:15 04/12/17 09:59 Intake & Output 04/11/17 04/12/17 04/13/17 06:59 06:59 06:59 Intake Total 1100 Balance 1100 Weight 74.8 kg Physical exam: Gen.: This is a well-developed underweight male resting in bed currently in no acute distress. HEENT: Normocephalic, atraumatic. Trachea is midline. Sclera are icteric. Heart: Regular rate and rhythm. No murmurs rubs or gallops. Lungs: Clear to auscultation bilaterally with diminished breath sounds at the bases. Equal rise and fall of the chest. Abdomen: Patient has a large distended abdomen. With edematous flanks. Essentially he has anasarca. There does not seem to be any tenderness to palpation. Hypoactive bowel sounds. Extremities: The patient has small-caliber extremities despite his large abdomen. There is 1+ edema lower extremities. No clubbing or cyanosis. Pulses are one plus. Neuro: He is awake alert. He occasionally has some slurred speech. For most of the conversation he can be very clearly understood. He is oriented. He is able to give his own history. Skin: There is a slightly erythematous rash on the medial aspect of the right lower extremity and thigh. There is some tenderness to palpation. Minimal warmth. The area looks more like a large bruise as opposed to a rash. Is appropriately outlined. Spider angiomata are present. It produces present. No palmar erythema. Results Laboratory Results: 04/12/17 05:23 04/12/17 05:23 04/11/17 04/12/17 04/12/17 22:10 05:23 05:23 WBC 2.4 L D RBC 2.11 L Hgb 7.7 L Hct 21.9 L MCV 104 H MCH 36.3 H MCHC 35.1 RDW 15.9 H Plt Count 41 L Seg Neutrophils % Not Reportable Lymphocytes % Not Reportable Monocytes % Not Reportable Eosinophils % Not Reportable Basophils % Not Reportable Absolute Neutrophils Not Reportable Absolute Lymphocytes Not Reportable Absolute Monocytes Not Reportable Absolute Eosinophils Not Reportable Absolute Basophils Not Reportable Sodium 132.0 L Potassium 3.5 L Chloride 103 Carbon Dioxide 21 L Anion Gap 8 BUN 31 H Creatinine 0.98 Est GFR ( Amer) > 60 Est GFR (Non-Af Amer) > 60 Glucose 114 H Lactic Acid 1.4 Calcium 7.7 L Total Bilirubin 9.2 H D AST 24 ALT 32 Alkaline Phosphatase 81 Total Protein 5.7 L Albumin 2.2 L Impressions: Venous Doppler Study 04/11/17 17:15 IMPRESSION: NO EVIDENCE OF DVT OR SVT IN THE RIGHT LEG. Femur X-Ray 04/11/17 20:04 IMPRESSION: NO RADIOGRAPHIC EVIDENCE OF ACUTE INJURY. Assessment & Plan - Diagnosis (1) Sepsis Is this a current diagnosis for this admission?: YesPlan: Patient presented with elevated white blood cell count and hypotension. He is currently on vancomycin and Zosyn. Sepsis is likely secondary to bacteremia as well as possible SBP. The patient is status post paracentesis yesterday as an outpatient. We'll have to find out if any of that fluid was sent for diagnostic testing. (2) Anemia Is this a current diagnosis for this admission?: YesPlan: Likely anemia of chronic disease due to underlying cirrhosis. Patient's hemoglobin dropped from 8.9 is 7.7. This likely due from the fluid boluses that he received. We'll continue to monitor. No transfusion for right now. (3) Bacteremia Plan: Gram-negative rods are present in one of 2 blood culture bottles. Currently the patient is on vancomycin and Zosyn. We will continue this for now. (4) Cellulitis of right thigh Is this a current diagnosis for this admission?: YesPlan: Continue vancomycin and Zosyn for now. the look of the patient's thigh appears to be more hematologic such as a bruise and fluid petechiae more so than infectious rash. Continue to monitor. (5) Hepatic cirrhosis Is this a current diagnosis for this admission?: YesPlan: Continue lactulose. (6) SBP (spontaneous bacterial peritonitis) Is this a current diagnosis for this admission?: YesPlan: Patient was tapped yesterday. Hopefully was sent for culture. (7) Thrombocytopenia Is this a current diagnosis for this admission?: YesPlan: Likely secondary to underlying cirrhosis. Continue to monitor. - Time Time Spent with patient: 25-34 minutes Anticipated discharge: Home - Inpatient Certification Medical Necessity: Need Close Monitoring Due to Risk of Patient Decompensation, Need for IV Antibiotics
[2017-04-12] MEDS ORDERED: (PENDING PHARMACY ID) (Cyclobenzaprine Hcl [Flexeril 5 Mg Tablet] 5 MG) PO PRN (12:46)
[2017-04-12] MEDS ORDERED: CYCLOBENZAPRINE HCL 10 MG TABLET PO PRN (12:48)
[2017-04-12] MEDS: THIAMINE HCL 100 MG, FOLIC ACID 1 MG in NORMAL SALINE 50 ML IV SCH (21:52)
[2017-04-12] MEDS: PRAMIPEXOLE DI-HCL 0.25 MG TABLET PO SCH (21:53)
[2017-04-12] MEDS ORDERED: (PENDING PHARMACY ID) (Pramipexole Di-Hcl [Mirapex] 0.125 MG) PO SCH (22:00)
[2017-04-13] MEDS: PIPERACILLIN SODIUM/TAZOBACTAM 3.375 GM in NORMAL SALINE 100 ML IV SCH ×4 (03:39→20:43)
[2017-04-13 04:50] LABS: HEMATOCRIT 21.6 % (37.9-51.0); HGB HCT DIFFERENCE 2.4; MEAN CORPUSCULAR HEMOGLOBIN 37.3 pg (27.0-33.4); MEAN CORPUSCULAR HGB CONC 36.8 g/dL (32.0-36.0); MEAN CORPUSCULAR VOLUME 101 fl (80-97); RED BLOOD COUNT 2.13 10^6/uL (4.35-5.55); RED CELL DISTRIBUTION WIDTH 15.9 % (11.5-14.0); WHITE BLOOD COUNT 2.1 10^3/uL (4.0-10.5)
[2017-04-13 05:30] LABS: BAND NEUTROPHILS % (MANUAL) 1 % (3-5); BASOPHILS % (MANUAL) 1 % (0-2); EOSINOPHILS % (MANUAL) 7 % (0-6); LYMPHOCYTES % (MANUAL) 16 % (13-45); TOTAL CELLS COUNTED 100
[2017-04-13 05:33] LABS: ANION GAP 7 (5-19); BLOOD UREA NITROGEN 24 mg/dL (7-20); CALCIUM 7.8 mg/dL (8.4-10.2); CARBON DIOXIDE 22 mmol/L (22-30); CHLORIDE 103 mmol/L (98-107); CREATININE RESULT 0.97 mg/dL (0.52-1.25); GLUCOSE 127 mg/dL (75-110); MAGNESIUM 1.9 mg/dL (1.6-2.3); POTASSIUM 4.1 mmol/L (3.6-5.0); SODIUM 131.8 mmol/L (137-145)
[2017-04-13 05:35] LABS: ANISOCYTOSIS 1+; BURR CELLS SLIGHT; POIKILOCYTOSIS 1+; POLYCHROMASIA SLIGHT; TOXIC VACUOLATION PRESENT
[2017-04-13 05:36] LABS: TARGET CELLS 1+
[2017-04-13 10:11] LABS: CREATININE RESULT 0.89 mg/dL (0.52-1.25)
[2017-04-13] MEDS: LACTULOSE SYRUP 20 GM/30 ML UDCUP PO SCH ×2 (10:11→21:45)
[2017-04-13] MEDS: DOCUSATE SODIUM 100 MG CAPSULE PO SCH ×2 (10:18→17:25)
[2017-04-13] MEDS: VANCOMYCIN HCL 1,000 MG in DEXTROSE 5%-WATER 250 ML IV SCH (10:46)
[2017-04-13] MEDS ORDERED: FUROSEMIDE INJ/PF 20 MG/2 ML SDV IV ONE (11:30)
--- NOTE | 2017-04-13 13:35 | PDOC PROGRESS REPORT ---
Subjective Progress Note for:: 04/13/17 Subjective:: This is a follow-up visit for cirrhosis of the liver with large abdominal ascites. Patient was seen today at the bedside he is now complaining of a bit of shortness of breath, increased abdominal tightness, and pain. No acute events overnight. He denies any chest pain. Physical Exam Vital Signs: Temp Pulse Resp BP Pulse Ox 97.8 F 84 18 133/72 H 100 04/13/17 12:23 04/13/17 12:23 04/13/17 12:23 04/13/17 12:23 04/13/17 12:23 Intake & Output 04/12/17 04/13/17 04/14/17 06:59 06:59 06:59 Intake Total 1100 2158 550 Balance 1100 2158 550 Weight 74.8 kg 76.8 kg Physical exam: Gen.: This is a well-developed underweight male resting in bed currently in no acute distress. Heart: Regular rate and rhythm. No murmurs rubs or gallops. Lungs: Clear to auscultation bilaterally with diminished breath sounds at the bases. Equal rise and fall of the chest. Abdomen: Patient has a large distended abdomen. With edematous flanks. Overall this looks much worse today. His abdomen is quite content. The skin is starting to become shiny. His umbilical hernia is beginning to protrude even further out. Essentially he has anasarca. Hypoactive bowel sounds. There is slight tenderness in the lower suprapubic area. Extremities: The patient has small-caliber extremities despite his large abdomen. There is 1+ edema lower extremities. No clubbing or cyanosis. Pulses are one plus. Neuro: He is awake alert. Cranial nerves are grossly intact Skin: There is a slightly erythematous rash on the medial aspect of the right lower extremity and thigh looks vastly better today. There've has been no extension beyond the outline made. Results Laboratory Results: 04/13/17 04:33 04/13/17 09:40 04/13/17 04/13/17 04/13/17 04:33 04:33 09:40 WBC 2.1 L RBC 2.13 L Hgb 8.0 L Hct 21.6 L MCV 101 H MCH 37.3 H MCHC 36.8 H RDW 15.9 H Plt Count 51 L Seg Neutrophils % Not Reportable Lymphocytes % Not Reportable Monocytes % Not Reportable Eosinophils % Not Reportable Basophils % Not Reportable Absolute Neutrophils Not Reportable Absolute Lymphocytes Not Reportable Absolute Monocytes Not Reportable Absolute Eosinophils Not Reportable Absolute Basophils Not Reportable Sodium 131.8 L Potassium 4.1 Chloride 103 Carbon Dioxide 22 Anion Gap 7 BUN 24 H Creatinine 0.97 0.89 Est GFR ( Amer) > 60 > 60 Est GFR (Non-Af Amer) > 60 > 60 Glucose 127 H Calcium 7.8 L Magnesium 1.9 Impressions: Venous Doppler Study 04/11/17 17:15 IMPRESSION: NO EVIDENCE OF DVT OR SVT IN THE RIGHT LEG. Femur X-Ray 04/11/17 20:04 IMPRESSION: NO RADIOGRAPHIC EVIDENCE OF ACUTE INJURY. Assessment & Plan - Diagnosis (1) Sepsis Is this a current diagnosis for this admission?: YesPlan: Patient presented with elevated white blood cell count and hypotension. He is currently on vancomycin and Zosyn. Sepsis is likely secondary to bacteremia as well as possible SBP. The patient is status post paracentesis on as an outpatient. Unfortunately he will need it again. His Lasix. According to give him 40 mg IV. His blood pressures have been in the 90s. We will need to proceed with caution. (2) Anemia Is this a current diagnosis for this admission?: YesPlan: This is pancytopenia. Hemoglobin remained stable today. Adelaida remained stable. White blood cell count is still low at 2. Hopefully this will increase. This is secondary to underlying cirrhosis and sepsis. (3) Bacteremia Plan: Gram-negative rods are present in one of 2 blood culture bottles. Currently the patient is on vancomycin and Zosyn. We will continue this for now. (4) Cellulitis of right thigh Is this a current diagnosis for this admission?: YesPlan: Continue vancomycin and Zosyn for now. the look of the patient's thigh appears to be better. Continue to monitor. (5) Hepatic cirrhosis Is this a current diagnosis for this admission?: YesPlan: Continue lactulose. (6) SBP (spontaneous bacterial peritonitis) Is this a current diagnosis for this admission?: YesPlan: The patient needs to be tapped again. This time we will send for culture.. (7) Thrombocytopenia Is this a current diagnosis for this admission?: YesPlan: Likely secondary to underlying cirrhosis. Continue to monitor. - Time Time Spent with patient: 25-34 minutes Anticipated discharge: Home - Inpatient Certification Medical Necessity: Need Close Monitoring Due to Risk of Patient Decompensation, Need for IV Antibiotics
[2017-04-13 14:17] LABS: PROTHROMBIN TIME 19.3 SEC (11.4-15.4)
[2017-04-13] MEDS: IPRATROPIUM/ALBUTEROL 0.5-2.5 MG/3 ML AMPUL NEB PRN (17:57)
[2017-04-13] MEDS: FUROSEMIDE INJ/PF 20 MG/2 ML SDV IV SCH (21:42)
[2017-04-13] MEDS: PRAMIPEXOLE DI-HCL 0.25 MG TABLET PO SCH (21:46)
[2017-04-13] MEDS: VANCOMYCIN HCL 1,500 MG in DEXTROSE 5%-WATER 250 ML IV SCH (21:48)
[2017-04-14] MEDS: THIAMINE HCL 100 MG, FOLIC ACID 1 MG in NORMAL SALINE 50 ML IV SCH ×2 (00:24→21:50)
[2017-04-14] MEDS: PIPERACILLIN SODIUM/TAZOBACTAM 3.375 GM in NORMAL SALINE 100 ML IV SCH ×4 (03:51→20:59)
[2017-04-14 06:08] LABS: HEMATOCRIT 23.1 % (37.9-51.0); HEMOGLOBIN 8.3 g/dL (13.5-17.0); HGB HCT DIFFERENCE 1.8; MEAN CORPUSCULAR HEMOGLOBIN 36.4 pg (27.0-33.4); MEAN CORPUSCULAR HGB CONC 36.1 g/dL (32.0-36.0); MEAN CORPUSCULAR VOLUME 101 fl (80-97); RED BLOOD COUNT 2.28 10^6/uL (4.35-5.55); RED CELL DISTRIBUTION WIDTH 15.8 % (11.5-14.0)
[2017-04-14 06:26] LABS: ANION GAP 5 (5-19); BLOOD UREA NITROGEN 20 mg/dL (7-20); CALCIUM 7.9 mg/dL (8.4-10.2); CARBON DIOXIDE 27 mmol/L (22-30); CHLORIDE 101 mmol/L (98-107); GLUCOSE 124 mg/dL (75-110); MAGNESIUM 1.7 mg/dL (1.6-2.3); POTASSIUM 3.3 mmol/L (3.6-5.0); SODIUM 132.7 mmol/L (137-145)
[2017-04-14 07:03] LABS: BAND NEUTROPHILS % (MANUAL) 4 % (3-5); BASOPHILS % (MANUAL) 0 % (0-2); EOSINOPHILS % (MANUAL) 10 % (0-6); LYMPHOCYTES % (MANUAL) 10 % (13-45); TOTAL CELLS COUNTED 50
[2017-04-14 07:04] LABS: ANISOCYTOSIS SLIGHT; TOXIC GRANULATION SLIGHT
[2017-04-14 07:07] LABS: POLYCHROMASIA SLIGHT; TARGET CELLS SLIGHT
[2017-04-14] MEDS ORDERED: (PENDING PHARMACY ID) (Spironolactone [Aldactone 100 Mg Tablet] 100 MG) PO SCH (10:00)
[2017-04-14] MEDS: DOCUSATE SODIUM 100 MG CAPSULE PO SCH ×2 (10:53→17:27)
[2017-04-14] MEDS: LACTULOSE SYRUP 20 GM/30 ML UDCUP PO SCH ×2 (11:20→21:51)
[2017-04-14] MEDS: FUROSEMIDE INJ/PF 20 MG/2 ML SDV IV SCH ×2 (11:33→21:54)
[2017-04-14] MEDS: SPIRONOLACTONE 25 MG TABLET PO SCH (11:34)
[2017-04-14] MEDS: VANCOMYCIN HCL 1,500 MG in DEXTROSE 5%-WATER 250 ML IV SCH ×2 (12:39→21:54)
--- NOTE | 2017-04-14 15:32 | PDOC PROGRESS REPORT ---
Subjective Progress Note for:: 04/14/17 Subjective:: This is a follow-up visit for cirrhosis of the liver with large abdominal ascites. Patient was seen today at the bedside he is complaining of increased abdominal tightness, and pain. No acute events overnight. He denies any chest pain. Physical Exam Vital Signs: Temp Pulse Resp BP Pulse Ox 98.4 F 84 18 123/89 H 100 04/14/17 12:45 04/14/17 12:45 04/14/17 12:45 04/14/17 12:45 04/14/17 12:45 Intake & Output 04/13/17 04/14/17 04/15/17 06:59 06:59 06:59 Intake Total 2157 3137 1070 Output Total 5150 625 Balance 2157 445 Weight 76.8 kg 75.3 kg Physical exam: Gen.: This is a well-developed underweight male resting in bed currently in no acute distress. Heart: Regular rate and rhythm. No murmurs rubs or gallops. Lungs: Clear to auscultation bilaterally with diminished breath sounds at the bases. Equal rise and fall of the chest. Abdomen: Patient has a large distended abdomen. He gets progressively worse daily. With edematous flanks. Overall this looks much worse today. His abdomen is quite tense. The skin is starting to become shiny. His umbilical hernia is beginning to protrude even further out. Essentially he has anasarca. Hypoactive bowel sounds. There is slight tenderness in the lower suprapubic area. Extremities: The patient has small-caliber extremities despite his large abdomen. There is trace edema lower extremities. No clubbing or cyanosis. Pulses are one plus. Neuro: He is awake alert. Cranial nerves are grossly intact Skin: There is a slightly erythematous rash on the medial aspect of the right lower extremity and thigh that has almost cleared. There has been no extension beyond the outline made. Results Laboratory Results: 04/14/17 05:48 04/14/17 05:48 04/14/17 04/14/17 05:48 05:48 WBC 2.0 L RBC 2.28 L Hgb 8.3 L Hct 23.1 L MCV 101 H MCH 36.4 H MCHC 36.1 H RDW 15.8 H Plt Count 48 L Seg Neutrophils % Not Reportable Lymphocytes % Not Reportable Monocytes % Not Reportable Eosinophils % Not Reportable Basophils % Not Reportable Absolute Neutrophils Not Reportable Absolute Lymphocytes Not Reportable Absolute Monocytes Not Reportable Absolute Eosinophils Not Reportable Absolute Basophils Not Reportable Sodium 132.7 L Potassium 3.3 L Chloride 101 Carbon Dioxide 27 Anion Gap 5 BUN 20 Creatinine 1.00 Est GFR ( Amer) > 60 Est GFR (Non-Af Amer) > 60 Glucose 124 H Calcium 7.9 L Magnesium 1.7 Impressions: Venous Doppler Study 04/11/17 17:15 IMPRESSION: NO EVIDENCE OF DVT OR SVT IN THE RIGHT LEG. Femur X-Ray 04/11/17 20:04 IMPRESSION: NO RADIOGRAPHIC EVIDENCE OF ACUTE INJURY. Abdomen Ultrasound 04/13/17 00:00 IMPRESSION: ASCITES. Assessment & Plan - Diagnosis (1) Sepsis Is this a current diagnosis for this admission?: YesPlan: Patient presented with elevated white blood cell count and hypotension. He is currently on vancomycin and Zosyn. Sepsis is likely secondary to bacteremia as well as possible SBP. The patient is status post paracentesis on as an outpatient. Unfortunately he will need it again. Continue Lasix and add back his home dose of spironolactone. We will give these medications as long as his pressure stays above 90. Paracentesis scheduled for tomorrow. (2) Anemia Is this a current diagnosis for this admission?: YesPlan: This is pancytopenia. Hemoglobin remained stable today. Platelets are stable White blood cell count is still low at 2. Hopefully this will increase. This is secondary to underlying cirrhosis and sepsis. (3) Bacteremia Plan: Gram-negative rods are present in one of 2 blood culture bottles. Currently the patient is on vancomycin and Zosyn. We will continue this for now. Await identification and susceptibilities. (4) Cellulitis of right thigh Is this a current diagnosis for this admission?: YesPlan: Continue vancomycin and Zosyn for now. the look of the patient's thigh appears to be better. Continue to monitor. (5) Hepatic cirrhosis Is this a current diagnosis for this admission?: YesPlan: Continue lactulose. (6) SBP (spontaneous bacterial peritonitis) Is this a current diagnosis for this admission?: YesPlan: The patient needs to be tapped again. This time we will send for culture.. (7) Thrombocytopenia Is this a current diagnosis for this admission?: YesPlan: Likely secondary to underlying cirrhosis. Continue to monitor. - Time Time Spent with patient: 15-24 minutes Anticipated discharge: Home - Inpatient Certification Medical Necessity: Significant Comorbidiites Make Outpatient Treatment Too Risky , Need Close Monitoring Due to Risk of Patient Decompensation
[2017-04-14] MEDS ORDERED: POTASSIUM CHLORIDE 10 MEQ TABLET.SA PO ONE (17:00)
[2017-04-14] MEDS: TRAMADOL HCL 50 MG TABLET PO PRN (20:58)
[2017-04-14] MEDS: PRAMIPEXOLE DI-HCL 0.25 MG TABLET PO SCH (21:52)
[2017-04-14] MEDS: IPRATROPIUM/ALBUTEROL 0.5-2.5 MG/3 ML AMPUL NEB PRN (22:09)
[2017-04-15] MEDS: PIPERACILLIN SODIUM/TAZOBACTAM 3.375 GM in NORMAL SALINE 100 ML IV SCH ×4 (02:30→21:11)
[2017-04-15 06:10] LABS: PROTHROMBIN TIME 20.2 SEC (11.4-15.4)
[2017-04-15 06:11] LABS: HEMATOCRIT 24.9 % (37.9-51.0); HEMOGLOBIN 8.8 g/dL (13.5-17.0); HGB HCT DIFFERENCE 1.5; MEAN CORPUSCULAR HEMOGLOBIN 36.2 pg (27.0-33.4); MEAN CORPUSCULAR HGB CONC 35.4 g/dL (32.0-36.0); MEAN CORPUSCULAR VOLUME 102 fl (80-97); RED BLOOD COUNT 2.43 10^6/uL (4.35-5.55); RED CELL DISTRIBUTION WIDTH 15.5 % (11.5-14.0); WHITE BLOOD COUNT 2.8 10^3/uL (4.0-10.5)
[2017-04-15 06:19] LABS: ANION GAP 8 (5-19); BLOOD UREA NITROGEN 23 mg/dL (7-20); CALCIUM 8.2 mg/dL (8.4-10.2); CARBON DIOXIDE 28 mmol/L (22-30); CHLORIDE 99 mmol/L (98-107); CREATININE RESULT 0.97 mg/dL (0.52-1.25); GLUCOSE 104 mg/dL (75-110); MAGNESIUM 1.7 mg/dL (1.6-2.3); POTASSIUM 3.5 mmol/L (3.6-5.0); SODIUM 134.6 mmol/L (137-145)
[2017-04-15 06:27] LABS: PARTIAL THROMBOPLASTIN TIME 42.8 SEC (23.5-35.8)
[2017-04-15 06:48] LABS: BASOPHILS % (MANUAL) 2 % (0-2); EOSINOPHILS % (MANUAL) 7 % (0-6); LYMPHOCYTES % (MANUAL) 8 % (13-45); TOTAL CELLS COUNTED 100
[2017-04-15 06:49] LABS: ANISOCYTOSIS SLIGHT
[2017-04-15] MEDS ORDERED: POTASSIUM CHLORIDE 10 MEQ TABLET.SA PO ONE (08:30)
[2017-04-15] MEDS: SPIRONOLACTONE 25 MG TABLET PO SCH (09:00)
[2017-04-15] MEDS: FUROSEMIDE INJ/PF 40 MG/4 ML SDV IV SCH ×2 (09:01→21:09)
[2017-04-15] MEDS: DOCUSATE SODIUM 100 MG CAPSULE PO SCH ×2 (09:03→17:03)
[2017-04-15] MEDS: LACTULOSE SYRUP 20 GM/30 ML UDCUP PO SCH ×2 (09:03→21:10)
[2017-04-15] MEDS: VANCOMYCIN HCL 1,500 MG in DEXTROSE 5%-WATER 250 ML IV SCH (10:06)
--- NOTE | 2017-04-15 15:07 | PDOC PROGRESS REPORT ---
Subjective Progress Note for:: 04/15/17 Subjective:: This is a follow-up visit for cirrhosis of the liver with large abdominal ascites. Patient was seen today at the bedside he is complaining of increased abdominal tightness, and pain. No acute events overnight. He denies any chest pain. Patient was waiting for paracentesis last saw him. At time he is gone down for intervention. I received a phone call from the radiologist who explained that there was not enough ascitic fluid therefore 100 And that all the fluid creating distention was third spaced fluid. Physical Exam Vital Signs: Temp Pulse Resp BP Pulse Ox 97.8 F 75 18 120/63 100 04/15/17 12:12 04/15/17 14:40 04/15/17 14:40 04/15/17 12:12 04/15/17 14:40 Intake & Output 04/14/17 04/15/17 04/16/17 06:59 06:59 06:59 Intake Total 3137 3120 Output Total 5150 3750 Weight 75.3 kg 74.5 kg Physical exam: Gen.: This is a well-developed underweight male resting in his recliner currently in no acute distress. Heart: Regular rate and rhythm. No murmurs rubs or gallops. Lungs: Clear to auscultation bilaterally with diminished breath sounds at the bases. Equal rise and fall of the chest. Abdomen: Patient has a large distended abdomen. It looks slightly better today even sitting up in a chair. His abdomen is quite tense. The skin is starting to become shiny. Hypoactive bowel sounds. Extremities: The patient has small-caliber extremities despite his large abdomen. There is trace edema lower extremities. No clubbing or cyanosis. Pulses are one plus. Neuro: He is awake alert. Cranial nerves are grossly intact Skin: There is a slightly erythematous rash on the medial aspect of the right lower extremity and thigh that has almost cleared. There has been no extension beyond the outline. Results Laboratory Results: 04/15/17 05:44 04/15/17 05:44 04/15/17 04/15/17 05:44 05:44 WBC 2.8 L RBC 2.43 L Hgb 8.8 L Hct 24.9 L MCV 102 H MCH 36.2 H MCHC 35.4 RDW 15.5 H Plt Count 53 L Seg Neutrophils % Not Reportable Lymphocytes % Not Reportable Monocytes % Not Reportable Eosinophils % Not Reportable Basophils % Not Reportable Absolute Neutrophils Not Reportable Absolute Lymphocytes Not Reportable Absolute Monocytes Not Reportable Absolute Eosinophils Not Reportable Absolute Basophils Not Reportable Sodium 134.6 L Potassium 3.5 L Chloride 99 Carbon Dioxide 28 Anion Gap 8 BUN 23 H Creatinine 0.97 Est GFR ( Amer) > 60 Est GFR (Non-Af Amer) > 60 Glucose 104 Calcium 8.2 L Magnesium 1.7 Impressions: Venous Doppler Study 04/11/17 17:15 IMPRESSION: NO EVIDENCE OF DVT OR SVT IN THE RIGHT LEG. Femur X-Ray 04/11/17 20:04 IMPRESSION: NO RADIOGRAPHIC EVIDENCE OF ACUTE INJURY. Assessment & Plan - Diagnosis (1) Sepsis Is this a current diagnosis for this admission?: YesPlan: Patient presented with elevated white blood cell count and hypotension. He is currently on vancomycin and Zosyn. Sepsis is likely secondary to bacteremia as well as possible SBP. The patient is status post paracentesis on as an outpatient. There is nothing left to tap. His distention is due to third spacing. Continue Lasix and spironolactone. We will give these medications as long as his pressure stays above 90. (2) Anemia Is this a current diagnosis for this admission?: Yes (3) Bacteremia Plan: Gram-negative rods are present in 2of 2 blood culture bottles. One has already grown out Escherichia coli. Currently the patient is on vancomycin and Zosyn. I will discontinue the vancomycin for now. The Escherichia coli is susceptible to Zosyn we will continue this. (4) Cellulitis of right thigh Is this a current diagnosis for this admission?: YesPlan: Continue Zosyn for now. the look of the patient's thigh appears to be better. Continue to monitor. If it should worsen acutely we may have to add back on the vancomycin or we could consider by mouth Clinda. (5) Hepatic cirrhosis Is this a current diagnosis for this admission?: YesPlan: Continue lactulose. (6) SBP (spontaneous bacterial peritonitis) Is this a current diagnosis for this admission?: YesPlan: Continue empiric coverage with Zosyn. (7) Thrombocytopenia Is this a current diagnosis for this admission?: YesPlan: Patient is actually pancytopenic. Hopefully the white blood cell count will begin to rise once his bacteremia clears. He is chronically anemic. Thrombocytopenia is Likely secondary to underlying cirrhosis. Continue to monitor. - Time Time Spent with patient: 25-34 minutes Anticipated discharge: Home - Inpatient Certification Medical Necessity: Significant Comorbidiites Make Outpatient Treatment Too Risky , Need Close Monitoring Due to Risk of Patient Decompensation, Need for IV Antibiotics
[2017-04-15] MEDS: PRAMIPEXOLE DI-HCL 0.25 MG TABLET PO SCH (21:10)
[2017-04-15] MEDS: TRAMADOL HCL 50 MG TABLET PO PRN (22:26)
[2017-04-15] MEDS: THIAMINE HCL 100 MG, FOLIC ACID 1 MG in NORMAL SALINE 50 ML IV SCH (22:27)
[2017-04-16] MEDS: PIPERACILLIN SODIUM/TAZOBACTAM 3.375 GM in NORMAL SALINE 100 ML IV SCH ×4 (02:49→21:19)
[2017-04-16 05:40] LABS: ABSOLUTE BASOPHILS # (AUTO) 0.1 10^3/uL (0.0-0.2); ABSOLUTE EOSINOPHILS # (AUTO) 0.2 10^3/uL (0.0-0.6); ABSOLUTE LYMPHOCYTES (AUTO) 0.4 10^3/uL (0.5-4.7); ABSOLUTE MONOCYTES (AUTO) 0.5 10^3/uL (0.1-1.4); ABSOLUTE NEUT (AUTO) 2.7 10^3/uL (1.7-8.2); BASOPHILS % (AUTO) 1.5 % (0-2); EOSINOPHILS % (AUTO) 5.3 % (0-6); HEMATOCRIT 26.9 % (37.9-51.0); HEMOGLOBIN 9.8 g/dL (13.5-17.0); HGB HCT DIFFERENCE 2.5; LYMPHOCYTES % (AUTO) 9.2 % (13-45); MEAN CORPUSCULAR HEMOGLOBIN 36.7 pg (27.0-33.4); MEAN CORPUSCULAR HGB CONC 36.4 g/dL (32.0-36.0); MEAN CORPUSCULAR VOLUME 101 fl (80-97); MONOCYTES % (AUTO) 13.6 % (3-13); RED BLOOD COUNT 2.67 10^6/uL (4.35-5.55); RED CELL DISTRIBUTION WIDTH 15.6 % (11.5-14.0); SEGMENTED NEUTROPHILS % (AUTO) 70.4 % (42-78); WHITE BLOOD COUNT 3.8 10^3/uL (4.0-10.5)
[2017-04-16 05:51] LABS: ANION GAP 9 (5-19); BLOOD UREA NITROGEN 22 mg/dL (7-20); CALCIUM 8.3 mg/dL (8.4-10.2); CARBON DIOXIDE 27 mmol/L (22-30); CHLORIDE 96 mmol/L (98-107); CREATININE RESULT 0.93 mg/dL (0.52-1.25); GLUCOSE 101 mg/dL (75-110); MAGNESIUM 1.7 mg/dL (1.6-2.3); POTASSIUM 3.7 mmol/L (3.6-5.0)
[2017-04-16 10:30] LABS: CREATININE RESULT 0.89 mg/dL (0.52-1.25)
[2017-04-16] MEDS: DOCUSATE SODIUM 100 MG CAPSULE PO SCH ×2 (10:33→16:53)
[2017-04-16] MEDS: LACTULOSE SYRUP 20 GM/30 ML UDCUP PO SCH ×2 (10:45→21:16)
[2017-04-16] MEDS: FUROSEMIDE INJ/PF 40 MG/4 ML SDV IV SCH ×2 (10:45→21:10)
[2017-04-16] MEDS: SPIRONOLACTONE 25 MG TABLET PO SCH (10:45)
--- NOTE | 2017-04-16 15:03 | PDOC PROGRESS REPORT ---
Subjective Progress Note for:: 04/16/17 Subjective:: Reason for visit: Follow-up cirrhosis with ascites, SBP, abdominal wall and thigh cellulitis, bacteremia, sepsis Hospital course: Per other providers, "KENNETH WELCH is a 56 year old male with a past medical history of alcoholism with last drink 6 months ago, end-stage hepatic cirrhosis, recurrent third spacing with ascites requiring paracentesis, anemia of chronic disease, thrombocytopenia and coagulopathy. He had been in his usual state of health until approximately 3 days ago noting right upper thigh erythema pain and a temperature of 100.9 which has gradually worsened over the last 3 days prompting him to seek evaluation emergency room where his found to have an irregular area of erythema of the right anterior medial aspect of the thigh approximately 40 cm x 20 cm with ecchymosis, thrombocytopenia a 53 , anemia of chronic disease with a hemoglobin of 9, coagulopathy with an INR of 2.1. He started on empiric antibiotics and referred to the hospitalist for admission. Patient admits to some abdominal pain and nausea without vomiting. No chest pain palpitations or shortness of breath. Patient was seen today at the bedside he is complaining of increased abdominal tightness, and pain. No acute events overnight. He denies any chest pain. Patient was waiting for paracentesis last saw him. At time he is gone down for intervention. I received a phone call from the radiologist who explained that there was not enough ascitic fluid therefore 100 And that all the fluid creating distention was third spaced fluid." i inherited his care Saturday and he is still c/o abdominal distension and discomfort with palpation and certain movements but no N/V/D and reports good urine output with initiation of diuretics for subQ edema. denies chest pain, palpitations, fevers/chills. ROS: Total 10 systems are reviewed, pertinent positives and negatives are noted above, remaining systems are negative. Physical Exam Vital Signs: Temp Pulse Resp BP Pulse Ox 98.4 F 88 20 130/75 H 100 04/16/17 11:27 04/16/17 11:27 04/16/17 11:27 04/16/17 11:27 04/16/17 11:27 Intake & Output 04/15/17 04/16/17 04/17/17 06:59 06:59 06:59 Intake Total 3120 2828 355 Output Total 3750 3925 1050 Balance -630 -6324 -835 Weight 74.5 kg 70.9 kg EXAM GENERAL: NAD; well developed, well nourished; no obese; alert and oriented to person, place, time, situation HEENT: normocephalic, atraumatic; no conjunctival injection, mild scleral icterus; oral mucosa dry; RESPIRATORY: no accessory muscle use, no increased WOB, good air entry bilaterally; no wheezes, rales, rhonchi; bibasilar inspiratory crackles CARDIO: no JVD; RRR; no systolic murmur; no tachycardia GI: soft; mod distended; normal bowel sounds; no rebound, rigidity, guarding; mild diffuse, non-localizing tenderness to palpation, woody edema noted across the lower abdominal wall and tracking into subQ tissue of R>L inner thighs VASCULAR: no pallor; 2+ radial, DP pulse; normal capillary refill EXTREMITIES: no calf tender; no palpable cords in calf; no clubbing, cyanosis , pedal edema PSYCH: normal affect, normal mood SKIN: warm; moist; no jaundice Results Laboratory Results: 04/16/17 05:20 04/16/17 10:00 04/16/17 04/16/17 04/16/17 05:20 05:20 10:00 WBC 3.8 L RBC 2.67 L Hgb 9.8 L Hct 26.9 L MCV 101 H MCH 36.7 H MCHC 36.4 H RDW 15.6 H Plt Count 70 L Seg Neutrophils % 70.4 Lymphocytes % 9.2 L Monocytes % 13.6 H Eosinophils % 5.3 Basophils % 1.5 Absolute Neutrophils 2.7 Absolute Lymphocytes 0.4 L Absolute Monocytes 0.5 Absolute Eosinophils 0.2 Absolute Basophils 0.1 Sodium 132.0 L Potassium 3.7 Chloride 96 L Carbon Dioxide 27 Anion Gap 9 BUN 22 H Creatinine 0.93 0.89 Est GFR ( Amer) > 60 > 60 Est GFR (Non-Af Amer) > 60 > 60 Glucose 101 Calcium 8.3 L Magnesium 1.7 Assessment & Plan - Diagnosis (1) Bacteremia Is this a current diagnosis for this admission?: YesPlan: Improved. Repeat blood cultures negative. We'll need to weeks of appropriate antibiotics from 04/15/2017. (2) Cellulitis of right thigh Is this a current diagnosis for this admission?: YesPlan: Improved. (3) Hepatic cirrhosis Is this a current diagnosis for this admission?: YesPlan: Improved. (4) SBP (spontaneous bacterial peritonitis) Is this a current diagnosis for this admission?: YesPlan: Unchanged. (5) Sepsis Is this a current diagnosis for this admission?: YesPlan: Improved. (6) Pancytopenia, acquired Is this a current diagnosis for this admission?: YesPlan: Improved. Likely secondary to chronic liver disease. (7) Ascites due to alcoholic cirrhosis Is this a current diagnosis for this admission?: YesPlan: Improved. Status post paracentesis. - Time Time Spent with patient: 25-34 minutes Anticipated discharge: Home Within: within 48 hours - Plan Summary Plan Summary: Continue diuretic therapy. Continue antibiotics. Consider change to Augmentin and discharge home in the next 24-48 hours depending on his fluid/volume status. Patient already has home health with nursing previously.
[2017-04-16] MEDS: PRAMIPEXOLE DI-HCL 0.25 MG TABLET PO SCH (21:18)
[2017-04-16] MEDS: THIAMINE HCL 100 MG, FOLIC ACID 1 MG in NORMAL SALINE 50 ML IV SCH (22:57)
[2017-04-17] MEDS: IPRATROPIUM/ALBUTEROL 0.5-2.5 MG/3 ML AMPUL NEB PRN (03:23)
[2017-04-17] MEDS: TRAMADOL HCL 50 MG TABLET PO PRN ×2 (03:29→22:36)
[2017-04-17] MEDS: PIPERACILLIN SODIUM/TAZOBACTAM 3.375 GM in NORMAL SALINE 100 ML IV SCH ×4 (03:48→21:56)
[2017-04-17] MEDS: SPIRONOLACTONE 25 MG TABLET PO SCH (10:00)
[2017-04-17] MEDS: LACTULOSE SYRUP 20 GM/30 ML UDCUP PO SCH ×2 (10:00→22:04)
[2017-04-17] MEDS: FUROSEMIDE INJ/PF 40 MG/4 ML SDV IV SCH ×2 (10:00→22:04)
[2017-04-17] MEDS: DOCUSATE SODIUM 100 MG CAPSULE PO SCH ×2 (10:00→21:44)
[2017-04-17] MEDS ORDERED: FUROSEMIDE INJ/PF 100 MG/10 ML SDV ONE (14:38)
--- NOTE | 2017-04-17 16:38 | PROGRESS NOTE E ---
Progress Note NAME: KENNETH WELCH : 1960 AGE: 56Y DATE: 04/17/2017 ROOM: 329 SUBJECTIVE: The patient reports increased swelling of his abdomen with increasing pain in the left upper quadrant as a result. He also notes continued clear yellow fluid expressing from the prior paracentesis site in the left upper quadrant. He notes increased edema in the soft tissues of his abdomen and thighs, worse since yesterday. He denies fevers, chills, chest pain, breathlessness, headache, nausea, vomiting or diarrhea. OBJECTIVE: Nurses notes reviewed. VITAL SIGNS: Stable. GENERAL: I find the patient sitting upright in the bedside chair, clearly in no acute distress, alert and oriented to person, place and time. He is breathing easily and no respiratory distress. LUNGS: Have some inspiratory crackles at the bases but no danielle rales, wheezes or rhonchi. ABDOMEN: Does appear slightly more distended today; however, he is sitting upright in the chair whereas yesterday he was lying flat in the prone position. The patient is tender to palpation in the left upper quadrant and there is woody edema throughout the subcutaneous tissues of the lower abdomen tracking into the upper thighs. It appears about the same, maybe slightly worse from yesterday. There is no overlying erythema or rash. The paracentesis site does in fact have a scant amount of clear yellow fluid oozing from the wound and onto the bandage but there is no fluctuant mass, no surrounding erythema, no tenderness there to suggest infection. He has good bowel sounds throughout. NEUROLOGIC: Lower extremities show no edema but do show muscle wasting as well as his upper extremities with the muscle wasting. He moves all 4 extremities and follows commands. Speech is not slurred. His thoughts are clear and lucid. ASSESSMENT: 1. ALCOHOLIC CIRRHOSIS WITH RECURRENT ASCITES AND ANASARCA. 2. BACTEREMIA. 3. SEPSIS. PLAN: To increase his Lasix dose today and monitor for effect in an effort to reverse the reaccumulation of fluid in his abdomen and soft tissues. Continue his current antibiotics. Assuming we see at least stabilization of his voluntary status, I think he can probably be discharged tomorrow. He states he has an appointment with his "liver doctor" already scheduled for Saturday. My recommendation would be for him to follow up mid-week for repeat ultrasound and possible paracentesis if enough fluid is reaccumulated, and I recommend continued monthly surveillance ultrasounds for at least the next 2-3 months with repeat paracentesis as needed, as I suspect he will continue to reaccumulate this fluid rather rapidly. Will defer to his technical services coordinator for further recommendations, evaluation and treatment. DICTATING PHYSICIAN: MARYURI POWELL M.D. [id number] PHY#: [id number] ID: [id number] JOB#: [id number] ACCT: [id number] cc: >
[2017-04-17] MEDS: THIAMINE HCL 100 MG, FOLIC ACID 1 MG in NORMAL SALINE 50 ML IV SCH (22:04)
[2017-04-17] MEDS: PRAMIPEXOLE DI-HCL 0.25 MG TABLET PO SCH (22:31)
[2017-04-18] MEDS: IPRATROPIUM/ALBUTEROL 0.5-2.5 MG/3 ML AMPUL NEB PRN (01:30)
[2017-04-18 06:38] LABS: HEMATOCRIT 22.2 % (37.9-51.0); HEMOGLOBIN 8.1 g/dL (13.5-17.0); HGB HCT DIFFERENCE 2.1; MEAN CORPUSCULAR HEMOGLOBIN 36.6 pg (27.0-33.4); MEAN CORPUSCULAR HGB CONC 36.6 g/dL (32.0-36.0); MEAN CORPUSCULAR VOLUME 100 fl (80-97); RED BLOOD COUNT 2.22 10^6/uL (4.35-5.55); RED CELL DISTRIBUTION WIDTH 15.4 % (11.5-14.0); WHITE BLOOD COUNT 3.8 10^3/uL (4.0-10.5)
[2017-04-18 06:55] LABS: ALANINE AMINOTRANSFERASE 32 U/L (21-72); ALBUMIN 2.5 g/dL (3.5-5.0); ALKALINE PHOSPHATASE 232 U/L (38-126); ANION GAP 6 (5-19); ASPARTATE AMINO TRANSFERASE 51 U/L (17-59); BILIRUBIN,DIRECT 2.2 mg/dL (0.0-0.4); BILIRUBIN,TOTAL 5.2 mg/dL (0.2-1.3); BLOOD UREA NITROGEN 24 mg/dL (7-20); CARBON DIOXIDE 28 mmol/L (22-30); CHLORIDE 93 mmol/L (98-107); CREATININE RESULT 0.93 mg/dL (0.52-1.25); GLUCOSE 111 mg/dL (75-110); POTASSIUM 4.3 mmol/L (3.6-5.0); SODIUM 127.2 mmol/L (137-145); TOTAL PROTEIN 6.1 g/dL (6.3-8.2)
[2017-04-18 07:56] LABS: ANISOCYTOSIS 1+; BASOPHILS % (MANUAL) 1 % (0-2); EOSINOPHILS % (MANUAL) 3 % (0-6); LYMPHOCYTES % (MANUAL) 10 % (13-45); POLYCHROMASIA 1+; TOTAL CELLS COUNTED 100; TOXIC GRANULATION 1+
[2017-04-18 08:00] LABS: HEMATOCRIT 27.5 % (37.9-51.0); HEMOGLOBIN 9.6 g/dL (13.5-17.0); HGB HCT DIFFERENCE 1.3; MEAN CORPUSCULAR VOLUME 103 fl (80-97); RED BLOOD COUNT 2.68 10^6/uL (4.35-5.55); RED CELL DISTRIBUTION WIDTH 15.3 % (11.5-14.0); WHITE BLOOD COUNT 4.5 10^3/uL (4.0-10.5)
[2017-04-18 08:53] LABS: ANISOCYTOSIS SLIGHT; BAND NEUTROPHILS % (MANUAL) 1 % (3-5); BASOPHILS % (MANUAL) 2 % (0-2); EOSINOPHILS % (MANUAL) 3 % (0-6); LYMPHOCYTES % (MANUAL) 5 % (13-45); POLYCHROMASIA SLIGHT; TOTAL CELLS COUNTED 100
[2017-04-18 09:13] LABS: PROTHROMBIN TIME 20.4 SEC (11.4-15.4)
[2017-04-18] MEDS: LACTULOSE SYRUP 20 GM/30 ML UDCUP PO SCH (09:34)
[2017-04-18] MEDS: SPIRONOLACTONE 25 MG TABLET PO SCH (09:34)
[2017-04-18] MEDS: FUROSEMIDE INJ/PF 40 MG/4 ML SDV IV SCH (09:35)
[2017-04-18] MEDS: PIPERACILLIN SODIUM/TAZOBACTAM 3.375 GM in NORMAL SALINE 100 ML IV SCH (09:36)
[2017-04-18] MEDS: DOCUSATE SODIUM 100 MG CAPSULE PO SCH (09:36)
[2017-04-18 11:44] VITALS: BP 117/68
--- NOTE | 2017-04-18 21:11 | DISCHARGE SUMMARY E ---
Discharge Summary NAME: KENNETH WELCH : 1960 AGE: 56Y ADMITTED: 04/11/2017 DISCHARGED: 04/18/2017 DISCHARGE DIAGNOSES: 1. Escherichia coli bacteremia. 2. Spontaneous bacterial peritonitis. 3. Cellulitis of the right thigh. 4. Alcoholic-induced hepatic cirrhosis. 5. Sepsis. 6. Acquired pancytopenia. 7. Recurrent ascites secondary to alcoholic cirrhosis. DISCHARGE MEDICATIONS: 1. ProAir HFA 1 to 4 puffs every 4 hours as needed. 2. Augmentin 875/125 mg b.i.d. for an additional 10 days. 3. Flexeril 10 mg t.i.d. as needed. 4. Lasix 40 mg b.i.d. 5. Lactulose b.i.d. 6. Omeprazole 20 mg daily. 7. Mirapex 0.25 mg daily. 8. Aldactone 100 mg daily. 9. Tramadol 50 mg t.i.d. p.r.n., total of #15 no refills. CHIEF COMPLAINT: Abdominal pain and swelling. HOSPITAL COURSE: The patient is a 56-year-old male with a past medical history of alcoholism. He had his last drink approximately 6 months ago with known end-stage hepatic cirrhosis followed by rattle leak and squeak repairer here locally with recurrent third spacing and ascites requiring paracentesis, also suffering from anemia of chronic disease, chronic thrombocytopenia, and resultant coagulopathy. He had been in his usual state of health until approximately 3 days ago, noting right upper thigh erythema with pain and a subjective fever at home of 100.9 which gradually worsened over the last 3 days, prompting him to seek medical evaluation in the Emergency Department. There, he was found to have an irregular area of erythema of the right anterior medial aspect of the thigh approximately 40 x 20 cm with some overlying ecchymosis, thrombocytopenia with platelet count of only 53, worsening of the anemia of chronic disease with hemoglobin of 9, and a coagulopathy with an INR of 2.1 and elevated total bilirubin. He was started on empiric antibiotics and was referred to the hospitalist for admission. The patient admitted to some abdominal pain and nausea without vomiting. He was diagnosed with a spontaneous bacterial peritonitis after paracentesis, and critical suspicion raised the possibility of same and was treated with empiric antibiotics. His initial blood cultures from the Emergency Department turned positive 2 out of 2 with E. coli susceptible to penicillin. Repeat blood cultures on 04/15/2017 showed no growth, and he will need 2 weeks of continued antibiotics for treatment of same. Most likely the etiology of the bacteremia is in fact the spontaneous bacterial peritonitis. He was diuresed throughout his hospitalization including 1 large volume paracentesis. He did have attempt at repeat paracentesis, but not an adequate amount of fluid was found at that time and so he was continued only diuretic therapy. He has had good improvement of his overall edema, and in fact, the thigh edema and erythema are now nearly completely resolved. He has follow-up appointment tomorrow with his rattle leak and squeak repairer and is quite anxious to keep that appointment. His laboratory work has stabilized. His clinical condition is improved to the point that he is hemodynamically stable and able to be discharged home where he can continue his management as an outpatient under the watchful eye of his rattle leak and squeak repairer and his primary care provider. He is to return to the Emergency Department for any worsening of his condition, states he understands signs and symptoms that should prompt a return and willingness to comply with medical direction. All questions were answered to his satisfaction. He continues to have some leakage at the former paracentesis site which actually I find beneficial. There is no evidence of any overlying erythema or fluctuant mass, and he was sent home with some supplies for continued dressing changes until spontaneous resolution of this leakage occurs. Further workup should be per his rattle leak and squeak repairer, but I initiated a repeat surveillance ultrasound next week, and if enough fluid has re-accumulated, recommend therapeutic paracentesis at that time. He may, in fact, require periodic paracentesis on a monthly basis until his condition stabilizes. DICTATING PHYSICIAN: MARYURI POWELL M.D. [id number] PHY#: [id number] ID: [id number] JOB#: [id number] ACCT: [id number] cc:TAMARA JOSHI M.D. MARYURI POWELL M.D. >
[2017-04-19 19:57] LABS: PATH REVIEW PATHOLOGIST REVIEWED
[2017-04-19 20:27] LABS: ALANINE AMINOTRANSFERASE 30 U/L (21-72); ALBUMIN 2.9 g/dL (3.5-5.0); ALKALINE PHOSPHATASE 267 U/L (38-126); ANION GAP 11 (5-19); ASPARTATE AMINO TRANSFERASE 53 U/L (17-59); BILIRUBIN,DIRECT 3.1 mg/dL (0.0-0.4); BILIRUBIN,TOTAL 6.3 mg/dL (0.2-1.3); BLOOD UREA NITROGEN 25 mg/dL (7-20); CALCIUM 8.4 mg/dL (8.4-10.2); CARBON DIOXIDE 25 mmol/L (22-30); CHLORIDE 95 mmol/L (98-107); CREATININE RESULT 0.81 mg/dL (0.52-1.25); GLUCOSE 119 mg/dL (75-110); POTASSIUM 3.4 mmol/L (3.6-5.0); SODIUM 130.6 mmol/L (137-145); TOTAL PROTEIN 7.5 g/dL (6.3-8.2)
== END 2017-04-18 12:30 | disposition home or self-care (01) | DRG 871 ==
LOC: ER 16:18 → EH 21:33 → UNDOADMIN 21:37 → EH 21:37 → 3S 04-12 00:15
PROVIDERS: ADMIT Internal Medicine; ATTEND Internal Medicine
PROC: 0W9F3ZZ Drainage of Abdominal Wall, Percutaneous Approach (ICD-10-PCS; 2017-04-11)
PROC: 3E0F73Z Introduction of Anti-inflammatory into Respiratory Tract, Via Natural or Artificial Opening (ICD-10-PCS; principal; 2017-04-12)
DX: A41.51 Sepsis due to Escherichia coli [E. coli] (principal); K65.2 Spontaneous bacterial peritonitis; L03.115 Cellulitis of right lower limb; D61.818 Other pancytopenia; K70.31 Alcoholic cirrhosis of liver with ascites; F10.20 Alcohol dependence, uncomplicated; D63.8 Anemia in other chronic diseases classified elsewhere; M19.90 Unspecified osteoarthritis, unspecified site; D69.59 Other secondary thrombocytopenia; K42.9 Umbilical hernia without obstruction or gangrene; Z79.899 Other long term (current) drug therapy; Z82.61 Family history of arthritis; Z82.3 Family history of stroke; Z82.49 Family history of ischemic heart disease and other diseases of the circulatory system; Z87.891 Personal history of nicotine dependence
CPT/HCPCS: 36415; 49083; 76705; 80048; 80053; 80202; 80307; 82140; 82565; 82607; 82728; 82746; 83540; 83550; 83605; 83735; 84520; 85025; 85027; 85045; 85610; 85730; 87040; 87077; 87186; 93971; 94640; 96361; 96365; 96367; 96375; 99285; J1940; J2543; J3370; J3411; J3430; J3490; J7030; J7040; J7060; J7620; P9047

== ENCOUNTER → 2017-04-19 | Outpatient (CLI) | payer MEDICAID, OTHER ==
[2017-04-19 14:53] LABS: ABSOLUTE EOSINOPHILS # (AUTO) 0.1 10^3/uL (0.0-0.6); ABSOLUTE LYMPHOCYTES (AUTO) 0.3 10^3/uL (0.5-4.7); ABSOLUTE MONOCYTES (AUTO) 0.4 10^3/uL (0.1-1.4); ABSOLUTE NEUT (AUTO) 3.4 10^3/uL (1.7-8.2); BASOPHILS % (AUTO) 0.7 % (0-2); EOSINOPHILS % (AUTO) 1.6 % (0-6); HEMATOCRIT 23.5 % (37.9-51.0); HEMOGLOBIN 8.4 g/dL (13.5-17.0); HGB HCT DIFFERENCE 1.7; MEAN CORPUSCULAR HEMOGLOBIN 36.1 pg (27.0-33.4); MEAN CORPUSCULAR HGB CONC 35.9 g/dL (32.0-36.0); MEAN CORPUSCULAR VOLUME 101 fl (80-97); MONOCYTES % (AUTO) 9.1 % (3-13); RED BLOOD COUNT 2.34 10^6/uL (4.35-5.55); RED CELL DISTRIBUTION WIDTH 15.1 % (11.5-14.0); SEGMENTED NEUTROPHILS % (AUTO) 81.6 % (42-78); WHITE BLOOD COUNT 4.1 10^3/uL (4.0-10.5)
[2017-04-19 15:00] LABS: APPEARANCE,URINE SLIGHTLY-CLOUDY; BILIRUBIN,URINE NEGATIVE (NEGATIVE); CALCIUM OXALATE CRYSTALS,URINE MANY /HPF; GLUCOSE, URINE NEGATIVE (NEGATIVE); KETONES,URINE NEGATIVE (NEGATIVE); LEUKOCYTE ESTERASE,URINE NEGATIVE (NEGATIVE); NITRITE,URINE NEGATIVE (NEGATIVE); PROTEIN,URINE NEGATIVE (NEGATIVE); URINE SPECIFIC GRAVITY 1.013; UROBILINOGEN,URINE NEGATIVE mg/dL (<2.0)
[2017-04-19 15:21] LABS: ALANINE AMINOTRANSFERASE 33 U/L (21-72); ALBUMIN 2.7 g/dL (3.5-5.0); ALKALINE PHOSPHATASE 232 U/L (38-126); ANION GAP 9 (5-19); ASPARTATE AMINO TRANSFERASE 60 U/L (17-59); BILIRUBIN,DIRECT 2.4 mg/dL (0.0-0.4); BILIRUBIN,TOTAL 5.5 mg/dL (0.2-1.3); BLOOD UREA NITROGEN 17 mg/dL (7-20); CALCIUM 8.5 mg/dL (8.4-10.2); CARBON DIOXIDE 27 mmol/L (22-30); CHLORIDE 97 mmol/L (98-107); CREATININE RESULT 0.76 mg/dL (0.52-1.25); GLUCOSE 129 mg/dL (75-110); POTASSIUM 3.6 mmol/L (3.6-5.0); SODIUM 132.8 mmol/L (137-145); TOTAL PROTEIN 6.6 g/dL (6.3-8.2)
== END ==
LOC: OD 10:43
PROVIDERS: ATTEND Internal Medicine Nephrology
DX: R31.9 Hematuria, unspecified (principal); K74.60 Unspecified cirrhosis of liver
CPT/HCPCS: 36415; 80053; 81001; 84300; 85025

== ENCOUNTER → 2017-04-24 | Outpatient (CLI) | payer MEDICAID, OTHER ==
[2017-04-24 17:13] LABS: PROTHROMBIN TIME 20.2 SEC (11.4-15.4)
[2017-04-24 17:19] LABS: ALANINE AMINOTRANSFERASE 30 U/L (21-72); ALBUMIN 2.9 g/dL (3.5-5.0); ALKALINE PHOSPHATASE 232 U/L (38-126); ANION GAP 6 (5-19); ASPARTATE AMINO TRANSFERASE 47 U/L (17-59); BILIRUBIN,DIRECT 2.3 mg/dL (0.0-0.4); BLOOD UREA NITROGEN 24 mg/dL (7-20); CALCIUM 8.8 mg/dL (8.4-10.2); CARBON DIOXIDE 25 mmol/L (22-30); CHLORIDE 103 mmol/L (98-107); CREATININE RESULT 0.84 mg/dL (0.52-1.25); GLUCOSE 155 mg/dL (75-110); POTASSIUM 4.7 mmol/L (3.6-5.0); SODIUM 134.2 mmol/L (137-145); TOTAL PROTEIN 7.2 g/dL (6.3-8.2)
[2017-04-25 13:12] LABS: HEMATOCRIT 25.6 % (37.9-51.0); HEMOGLOBIN 8.9 g/dL (13.5-17.0); HGB HCT DIFFERENCE 1.1; MEAN CORPUSCULAR HEMOGLOBIN 36.1 pg (27.0-33.4); MEAN CORPUSCULAR HGB CONC 34.7 g/dL (32.0-36.0); MEAN CORPUSCULAR VOLUME 104 fl (80-97); RED BLOOD COUNT 2.46 10^6/uL (4.35-5.55); RED CELL DISTRIBUTION WIDTH 15.7 % (11.5-14.0); WHITE BLOOD COUNT 2.7 10^3/uL (4.0-10.5)
== END ==
LOC: LAB 15:55
PROVIDERS: ATTEND Internal Medicine Gastroenterology
DX: R17 Unspecified jaundice (principal); K70.31 Alcoholic cirrhosis of liver with ascites; K76.6 Portal hypertension
CPT/HCPCS: 36415; 80053; 85027; 85610

== ENCOUNTER → 2017-05-06 | Day surgery (SDC) | payer MEDICAID ==
[2017-05-06 08:00] LABS: HEMATOCRIT 27.8 % (37.9-51.0); HEMOGLOBIN 9.6 g/dL (13.5-17.0); MEAN CORPUSCULAR HEMOGLOBIN 35.6 pg (27.0-33.4); MEAN CORPUSCULAR HGB CONC 34.7 g/dL (32.0-36.0); MEAN CORPUSCULAR VOLUME 103 fl (80-97); RED BLOOD COUNT 2.71 10^6/uL (4.35-5.55); RED CELL DISTRIBUTION WIDTH 14.5 % (11.5-14.0)
[2017-05-06 08:03] LABS: PROTHROMBIN TIME 20.3 SEC (11.4-15.4)
[2017-05-06 08:04] LABS: PARTIAL THROMBOPLASTIN TIME 43.9 SEC (23.5-35.8)
[2017-05-06 08:17] LABS: BLOOD UREA NITROGEN 17 mg/dL (7-20); CREATININE RESULT 0.77 mg/dL (0.52-1.25)
[2017-05-06 08:52] LABS: WHITE BLOOD COUNT 1.5 10^3/uL (4.0-10.5)
--- NOTE | 2017-05-06 09:58 | RADIOLOGY REPORT (SQ) ---
EXAM DESCRIPTION: U/S ABDOMEN LIMITED W/O DOP COMPLETED DATE/TIME: 05/06/2017 9:10 am REASON FOR STUDY: EVAL FOR ASCITES K70.31 ALCOHOLIC CIRRHOSIS OF LIVER WITH ASCITES COMPARISON: None. TECHNIQUE: Limited Static and real time joyce scale imaging performed of the 4 abdominal quadrants an d the midline. LIMITATIONS: None. FINDINGS: ASCITES: No significant ascites. OTHER: No other significant finding. IMPRESSION: NO EVIDENCE FOR ASCITES. TECHNICAL DOCUMENTATION: JOB ID: [id number] [employer]- All Rights Reserved
[2017-05-06 10:56] VITALS: BP 98/62
[2017-05-06 18:28] LABS: PATH REVIEW PATHOLOGIST REVIEWED
== END ==
LOC: RAD 07:05
PROVIDERS: ATTEND Internal Medicine
DX: K70.31 Alcoholic cirrhosis of liver with ascites (principal)
CPT/HCPCS: 36415; 76705; 82565; 84520; 85027; 85610; 85730

== ENCOUNTER 2017-05-07 08:21 | Inpatient (IN) | payer MEDICAID ==
[2017-05-07 09:38] LABS: HEMOGLOBIN 10.8 g/dL (13.5-17.0); HGB HCT DIFFERENCE 1.4; MEAN CORPUSCULAR HEMOGLOBIN 35.4 pg (27.0-33.4); MEAN CORPUSCULAR HGB CONC 34.8 g/dL (32.0-36.0); MEAN CORPUSCULAR VOLUME 102 fl (80-97); RED BLOOD COUNT 3.05 10^6/uL (4.35-5.55); RED CELL DISTRIBUTION WIDTH 14.1 % (11.5-14.0); WHITE BLOOD COUNT 2.1 10^3/uL (4.0-10.5)
[2017-05-07 09:59] LABS: ALANINE AMINOTRANSFERASE 35 U/L (21-72); ALBUMIN 2.7 g/dL (3.5-5.0); ALKALINE PHOSPHATASE 267 U/L (38-126); ANION GAP 7 (5-19); ASPARTATE AMINO TRANSFERASE 46 U/L (17-59); BILIRUBIN,TOTAL 5.3 mg/dL (0.2-1.3); BLOOD UREA NITROGEN 20 mg/dL (7-20); CALCIUM 8.5 mg/dL (8.4-10.2); CARBON DIOXIDE 23 mmol/L (22-30); CHLORIDE 104 mmol/L (98-107); GLUCOSE 134 mg/dL (75-110); POTASSIUM 4.1 mmol/L (3.6-5.0); SODIUM 133.6 mmol/L (137-145); TOTAL PROTEIN 7.3 g/dL (6.3-8.2)
[2017-05-07 10:00] LABS: ALCOHOL < 10 mg/dL (NONE DETECTED)
[2017-05-07 10:06] LABS: ANISOCYTOSIS SLIGHT; BASOPHILS % (MANUAL) 0 % (0-2); EOSINOPHILS % (MANUAL) 1 % (0-6); LYMPHOCYTES % (MANUAL) 9 % (13-45); OVALOCYTES SLIGHT; POIKILOCYTOSIS SLIGHT; TOTAL CELLS COUNTED 100
[2017-05-07 10:10] LABS: CREATINE KINASE MB 0.44 ng/mL (<4.55)
[2017-05-07 10:16] LABS: TROPONIN I < 0.012 ng/mL
[2017-05-07 10:17] LABS: APPEARANCE,URINE CLEAR; BILIRUBIN,URINE NEGATIVE (NEGATIVE); GLUCOSE, URINE NEGATIVE (NEGATIVE); KETONES,URINE NEGATIVE (NEGATIVE); LEUKOCYTE ESTERASE,URINE NEGATIVE (NEGATIVE); NITRITE,URINE NEGATIVE (NEGATIVE); PROTEIN,URINE NEGATIVE (NEGATIVE); URINE SPECIFIC GRAVITY 1.017; UROBILINOGEN,URINE NEGATIVE mg/dL (<2.0)
--- NOTE | 2017-05-07 10:46 | ER Document Report ---
ED General - General Mode of Arrival: Wheelchair Information source: Relative - Cannot obtain history due to: Altered mental status TRAVEL OUTSIDE OF THE [place] IN LAST 30 DAYS: No - HPI Patient complains to provider of: Altered Mental Status Onset: Yesterday Onset/Duration: Gradual, Worse <GURINDER LOVE - Last Filed: 05/07/17 12:07> <NELLY KANG - Last Filed: 05/14/17 03:42> - General Chief Complaint: Abdominal Pain Stated Complaint: STOMACH PAIN Time Seen by Provider: 05/07/17 08:48 Notes: Patient is a 56-year-old male, with history of alcoholic cirrhosis of the liver , presenting to the emergency department by his and son are concerned because he had altered mental status since yesterday. Patient's states that the patient did not take his Lactulose yesterday, and he was up all night banging on doors. Patient's son stayed up with the patient, but the patient has no recollection. According to the , patient is only able to say his name, and cannot follow commands. Patient's denies any fever, vomiting, diarrhea. Patient's son reports that the patient has had 3 bowel movements this morning between the hours of 2 AM and 7 AM. Patient's son states that these were not followed, but he did not note any blood. Patient's states that the patient came to [facility] yesterday to have his ascites drained, but it did not need to be drained at that time. Patient's states that the patient is cold all the time, but denies chills, she was able to give the patient most of his medications this morning inlcuding 30 mL of Lactulose, except for 1 pill which he refused to take secondary to his altered mental status. (GURINDER LOVE) - Related Data Allergies/Adverse Reactions: No Known Allergies Allergy (Verified 05/07/17 17:51) Home Medications: Current Home Medications Albuterol Sulfate [Proair HFA] 1 puff PO Q4HP PRN 05/07/17 [History] Furosemide 40 mg PO BID 05/07/17 [History] Pramipexole Di-HCl [Mirapex 0.25 mg Tablet] 0.125 mg PO QHS 05/07/17 [History] Rifaximin [Xifaxan] 550 mg PO BID 05/07/17 [History] Spironolactone 100 mg PO DAILY 05/07/17 [History] Past Medical History - General Information source: Relative - Social History Smoking Status: Never Smoker Chew tobacco use (# tins/day): No Frequency of alcohol use: Former Heavy Alcohol Use Drug Abuse: Other Family History: Arthritis, CAD, CVA, Hyperlipidemia, Hypertension Patient has suicidal ideation: No Patient has homicidal ideation: No GI Medical History: Reports: Hx Cirrhosis - With ascites Musculoskeltal Medical History: Reports Hx Arthritis, Reports Hx Musculoskeletal Trauma - Fractured right ankle left knee and left rotator cuff injury Traumatic Medical History: Reports: Hx Fractures Past Surgical History: Reports: Hx Abdominal Surgery - multiple paracentesis fo , Hx Orthopedic Surgery - Repair of left knee fractured right ankle fracture, Hx Umbilical Hernia - Immunizations Hx Diphtheria, Pertussis, Tetanus Vaccination: No <GURINDER LOVE - Last Filed: 05/07/17 12:07> Review of Systems - Review of Systems -: Yes ROS unobtainable due to patient's medical condition - ROS unobtainable secondary to altered mental status. Constitutional: No symptoms reported EENT: No symptoms reported Cardiovascular: No symptoms reported Respiratory: No symptoms reported Gastrointestinal: No symptoms reported Genitourinary: No symptoms reported Male Genitourinary: No symptoms reported Musculoskeletal: No symptoms reported Skin: No symptoms reported Hematologic/Lymphatic: No symptoms reported Neurological/Psychological: No symptoms reported -: Yes All other systems reviewed and negative <GURINDER LOVE - Last Filed: 05/07/17 12:07> Physical Exam - Vital signs Interpretation: Normal - General General appearance: Alert - Altered Mental Status - HEENT Head: Normocephalic, Atraumatic Eyes: Scleral icterus Pupils: PERRL - Respiratory Respiratory status: No respiratory distress Chest status: Nontender Breath sounds: Normal Chest palpation: Normal - Cardiovascular Rhythm: Regular Heart sounds: Normal auscultation Murmur: No - Abdominal Inspection: Normal Distension: Distended - Mild ascites Bowel sounds: Normal Tenderness: Nontender, Other - no rigidity. No: Guarding, Rebound - Back Back: Normal, Nontender - Extremities General upper extremity: Normal inspection, Nontender General lower extremity: Normal inspection, Nontender - Neurological Cognition: Confused Orientation: Disoriented to place, Disoriented to time, Disoriented to events. No: Disoriented to person Christina Coma Scale Eye Opening: Spontaneous [place] Coma Scale Verbal: Inappropriate Christina Coma Scale Motor: Withdraws to Pain Christina Coma Scale Total: 11 - Psychological Associated symptoms: Normal affect, Normal mood - Skin Skin Temperature: Warm Skin Moisture: Dry <GURINDER LOVE - Last Filed: 05/07/17 12:07> <NELLY KANG - Last Filed: 05/14/17 03:42> - Vital signs Vitals: Pulse Resp BP Pulse Ox 86 16 133/73 H 100 05/07/17 08:26 05/07/17 08:26 05/07/17 08:26 05/07/17 08:26 - Abdominal Notes: Cannot palpate edge of the liver (GURINDER LOVE) Course - Laboratory Result Diagrams: 05/07/17 09:15 05/07/17 09:15 - Consults Dr. Davila Time consulted: 11:00 Consulted provider: will see as inpatient <GURINDER LOVE - Last Filed: 05/07/17 12:07> - Laboratory Result Diagrams: 05/12/17 07:42 05/12/17 07:42 <NELLY KANG - Last Filed: 05/14/17 03:42> - Re-evaluation Re-evalutation: 05/07/17 10:48 Patient presents emergency department with his and son at the bedside with chief complaint of altered mental status. Patient has history of alcoholic cirrhosis diagnosed in November of this year he had been seen and evaluated up at [place] about 4 months ago they started him on lactulose and drained ascitic fluid about 3 times. He sees a primary care physician at [facility] and has outpatient ascites drainage ordered for him. He went to have that done yesterday and they said that he did not have enough fluid to drain she said he missed 1 or 2 doses of his lactulose and became confused at the bedside he answers his first name to every question that is asked including location time and date. He has not had alcohol since September. and family has been with him 24 7 including all night long when he was up there is no history of fall fevers chills cough vomiting or diarrhea. On examination he is alert that repeats over and over again Aba to answer any questions he is not alert to time person or place. 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 Heart lungs abdomen distended but no major ascitic fluid wave or shortness of breath no left upper quadrant tenderness guarding rebound rigidity or hepatosplenomegaly. This point he had lactulose by his this morning is still altered to go ahead and give him an admission to the hospital observation with Dr. Davila for altered mental status and lactulose treatment (NELLY KANG) - Vital Signs Vital signs: Temp Pulse Resp BP Pulse Ox 97.6 F 76 16 109/54 L 100 05/12/17 13:06 05/12/17 13:06 05/12/17 13:06 05/12/17 13:06 05/12/17 13:06 - Laboratory Laboratory results interpreted by me: 05/07/17 05/07/17 05/07/17 09:15 09:15 09:15 WBC 2.1 L RBC 3.05 L Hgb 10.8 L Hct 31.0 L MCV 102 H MCH 35.4 H RDW 14.1 H Plt Count 38 L Seg Neuts % (Manual) 81 H Lymphocytes % (Manual) 9 L Metamyelocytes % 1 H Abs Lymphs (Manual) 0.2 L Sodium 133.6 L Glucose 134 H Total Bilirubin 5.3 H Direct Bilirubin 2.0 H Alkaline Phosphatase 267 H Ammonia 39.3 H Albumin 2.7 L Urine Blood Acetaminophen < 10 L 05/07/17 09:35 WBC RBC Hgb Hct MCV MCH RDW Plt Count Seg Neuts % (Manual) Lymphocytes % (Manual) Metamyelocytes % Abs Lymphs (Manual) Sodium Glucose Total Bilirubin Direct Bilirubin Alkaline Phosphatase Ammonia Albumin Urine Blood MODERATE H Acetaminophen - Consults Dr. Davila Reason for consultation: 05/07/17 12:08 discussed patient's case with Dr. Davila who agrees to accept the patient (GURINDER LOVE) Critical Care Note - Critical Care Note Total time excluding time spent on procedures (mins): 55 <NELLY KANG - Last Filed: 05/14/17 03:42> Discharge <GURINDER LOVE - Last Filed: 05/07/17 12:07> - Discharge Admitting Provider: Hospitalist Unit Admitted: Medical Floor <NELLY KANG - Last Filed: 05/14/17 03:42> - Discharge Clinical Impression: Altered mental status acute , Elevated ammonia level with cirrhosis Condition: Stable Disposition: ADMITTED OBSERVATION Scribe Attestation: 05/07/17 10:48 I personally performed the services described in the documentation reviewed the documentation recorded by my scribe in my presence and it accurately and completely records my words and actions (NELLY KANG) Scribe Documentation - Scribe Written by Scribe:: Belia Whitaker, 05/07/2017 1146 acting as scribe for :: Simon <GURINDER LOVE - Last Filed: 05/07/17 12:07>
[2017-05-07] MEDS ORDERED: ONDANSETRON HCL INJ/PF 4 MG/2 ML SDV IV PRN (10:48)
[2017-05-07] MEDS ORDERED: ACETAMINOPHEN 325 MG TABLET PO PRN (10:48)
[2017-05-07 12:13] LABS: URINE BARBITURATES SCREEN NEGATIVE; URINE METHADONE SCREEN NEGATIVE; URINE OPIATES LOW NEGATIVE; URINE PHENCYCLIDINE SCREEN NEGATIVE
[2017-05-07] MEDS: LACTULOSE SYRUP 20 GM/30 ML UDCUP PO SCH ×3 (12:49→20:10)
[2017-05-07] MEDS: LANSOPRAZOLE 15 MG TAB.RAP.DR PO SCH (17:07)
[2017-05-07] MEDS ORDERED: ALBUTEROL SULFATE HFA (90 MCG/PUFF) 8 GM MDI (1 MDI/ER DISP) IH PRN (20:09)
--- NOTE | 2017-05-07 20:24 | PDOC H&P ---
History of Present Illness Admission Date/PCP: 05/07/17 11:06 History of Present Illness: Patient is a 56-year-old male, with history of alcoholic cirrhosis of the liver , presenting to the emergency department by his and son are concerned because he had altered mental status since yesterday. Patient's states that the patient did not take his Lactulose yesterday, and he was up all night banging on doors. Patient's son stayed up with the patient, but the patient has no recollection. According to the , patient is only able to say his name, and cannot follow commands. Patient's denies any fever, vomiting, diarrhea. Patient's son reports that the patient has had 3 bowel movements this morning between the hours of 2 AM and 7 AM. Patient's son states that these were not followed, but he did not note any blood. Patient's states that the patient came [facility] yesterday to have his ascites drained, but it did not need to be drained at that time. Patient's states that the patient is cold all the time, but denies chills, she was able to give the patient most of his medications this morning inlcuding 30 mL of Lactulose, except for 1 pill which he refused to take secondary to his altered mental status. Patient's labs are found to be unremarkable with the exception of an elevated ammonia and pancytopenia which is chronic and he is referred to the hospitalist service for evaluation of his altered mental status. Past Medical History Cardiac Medical History: Denies: Coronary Artery Disease, Myocardial Infarction, Hypertension Pulmonary Medical History: Denies: Asthma, Bronchitis, Chronic Obstructive Pulmonary Disease (COPD), Pneumonia Neurological Medical History: Denies: Seizures GI Medical History: Reports: Cirrhosis - With ascites Musculoskeltal Medical History: Reports: Arthritis Hematology: Reports: Anemia Denies: Hemophilia, Sickle Cell Disease Past Surgical History Past Surgical History: Reports: Herniorrhaphy, Orthopedic Surgery - Repair of left knee fractured right ankle fracture Social History Smoking Status: Former Smoker Cigarettes Packs Per Day: 1 Cigars Per Day: 0 Pipes Per Day: 0 Number of Years Smokin Last Time Smoked: 12/02/2016 Frequency of Alcohol Use: None Amount of Alcoholic Beverages Per Day: 3 of 1/5 per day prior to September 2016 Hx Recreational Drug Use: No Drugs: None Hx Prescription Drug Abuse: No - Advance Directive Resuscitation Status: Full Code Surrogate healthcare decision maker:: Cassy, Family History Family History: Arthritis, CAD, CVA, Hyperlipidemia, Hypertension, Other - scleroderma in mother Parental Family History Reviewed: Yes Children Family History Reviewed: Yes Sibling(s) Family History Reviewed.: Unknown Medication/Allergy Home Medications: Albuterol Sulfate [Proair HFA] 1 puff PO Q4HP PRN 05/07/17 Ciprofloxacin HCl [Cipro] 500 mg PO BID 05/07/17 Furosemide [Furosemide] 40 mg PO BID 05/07/17 Lactulose [Generlac] 30 ml PO BIDP PRN MDD FOR 2-3 LOOSE STOOLS DAILY 05/07/17 Omeprazole [Omeprazole] 20 mg PO DAILY 05/07/17 Pramipexole Di-HCl [Mirapex 0.25 Mg Tablet] 0.125 mg PO QHS 05/07/17 Rifaximin [Xifaxan] 550 mg PO BID 05/07/17 Spironolactone [Spironolactone] 100 mg PO DAILY 05/07/17 Allergies/Adverse Reactions: No Known Allergies Allergy (Verified 05/07/17 17:51) Review of Systems ROS unobtainable: Due to mental status Physical Exam Vital Signs: Temp Pulse Resp BP Pulse Ox 98.1 F 77 16 112/64 100 05/07/17 15:16 05/07/17 15:16 05/07/17 15:16 05/07/17 15:16 05/07/17 15:16 Intake & Output 05/06/17 05/07/17 05/08/17 06:59 06:59 06:59 Weight 69.7 kg General appearance: PRESENT: disheveled, well-developed. ABSENT: well-nourished Head exam: PRESENT: atraumatic, normocephalic Eye exam: PRESENT: conjunctiva pink, EOMI, PERRLA, scleral icterus. ABSENT: conjunctival injection Ear exam: PRESENT: normal external ear exam Mouth exam: PRESENT: moist, tongue midline Neck exam: ABSENT: JVD, lymphadenopathy, thyromegaly, tracheal deviation Respiratory exam: PRESENT: clear to auscultation melody. ABSENT: rales, rhonchi, wheezes Cardiovascular exam: PRESENT: RRR, +S1, +S2. ABSENT: diastolic murmur, gallop, rubs, systolic murmur, tachycardia Pulses: PRESENT: normal dorsalis pedis pul Vascular exam: PRESENT: normal capillary refill GI/Abdominal exam: PRESENT: ascites, distended - mild, hernia - umbilical, normal bowel sounds, soft. ABSENT: firm, guarding, mass, Ghosh's sign, rebound , rigid, tenderness Rectal exam: PRESENT: deferred Extremities exam: PRESENT: full ROM, pedal edema - trace. ABSENT: calf tenderness, clubbing Neurological exam: PRESENT: alert, awake, oriented to person, CN II-XII grossly intact. ABSENT: oriented to place, oriented to time, oriented to situation, motor sensory deficit Psychiatric exam: PRESENT: other - confused, but pleasant Skin exam: PRESENT: dry, intact, jaundice, warm. ABSENT: cyanosis, rash Results Laboratory Results: 05/07/17 05/07/17 05/07/17 09:15 09:15 09:15 WBC 2.1 L Hgb 10.8 L MCV 102 H Plt Count 38 L Sodium 133.6 L Glucose 134 H Total Bilirubin 5.3 H Direct Bilirubin 2.0 H Alkaline Phosphatase 267 H Ammonia 39.3 H Albumin 2.7 L Acetaminophen < 10 L Serum Alcohol < 10 Assessment & Plan - Diagnosis (1) Hepatic encephalopathy Is this a current diagnosis for this admission?: YesPlan: Place patient on observation and reinitiate rifaximin and lactulose. Cultures currently pending including blood and urine. According to outpatient reconciliation of medications patient was on Cipro as an outpatient. We will continue this. Has no ascites. (2) Hepatic cirrhosis Qualifiers: Hepatic cirrhosis type: alcoholic cirrhosis Ascites presence: without ascites Qualified Code(s): K70.30 - Alcoholic cirrhosis of liver without ascites Is this a current diagnosis for this admission?: YesPlan: Continue supportive care with rifaximin, lactulose, spironolactone, and Lasix. (3) Coagulopathy Is this a current diagnosis for this admission?: YesPlan: secondary to #2. (4) Pancytopenia, acquired Is this a current diagnosis for this admission?: YesPlan: secondary to #2 - Time Time Spent: 50 to 70 Minutes Medications reviewed and adjusted accordingly: Yes Anticipated discharge: Home Within: within 24 hours - Inpatient Certification Based on my medical assessment, after consideration of the patient's comorbidities, presenting symptoms, or acuity I expect that the services needed warrant INPATIENT care.: No I certify that my determination is in accordance with my understanding of Medicare's requirements for reasonable and necessary INPATIENT services [42 CFR 412.3e].: No Post Hospital Care: D/C Household Personal Assistant Documentation
[2017-05-07] MEDS ORDERED: ALBUTEROL SULFATE HFA (90 MCG/PUFF) 200 PUFF/8.5 GM MDI IH PRN (20:37)
[2017-05-07] MEDS: PRAMIPEXOLE DI-HCL 0.25 MG TABLET PO SCH (22:11)
[2017-05-08] MEDS: LACTULOSE SYRUP 20 GM/30 ML UDCUP PO SCH ×5 (01:02→16:13)
[2017-05-08 05:06] LABS: HEMATOCRIT 26.4 % (37.9-51.0); HEMOGLOBIN 9.3 g/dL (13.5-17.0); HGB HCT DIFFERENCE 1.5; MEAN CORPUSCULAR HEMOGLOBIN 35.9 pg (27.0-33.4); MEAN CORPUSCULAR HGB CONC 35.2 g/dL (32.0-36.0); MEAN CORPUSCULAR VOLUME 102 fl (80-97); RED BLOOD COUNT 2.59 10^6/uL (4.35-5.55); WHITE BLOOD COUNT 1.8 10^3/uL (4.0-10.5)
[2017-05-08 05:09] LABS: PARTIAL THROMBOPLASTIN TIME 42.5 SEC (23.5-35.8); PROTHROMBIN TIME 20.8 SEC (11.4-15.4)
[2017-05-08] MEDS: LANSOPRAZOLE 15 MG TAB.RAP.DR PO SCH ×3 (05:38→16:13)
[2017-05-08 07:38] LABS: BASOPHILS % (MANUAL) 0 % (0-2); EOSINOPHILS % (MANUAL) 10 % (0-6); LYMPHOCYTES % (MANUAL) 16 % (13-45); TOTAL CELLS COUNTED 50; TOXIC GRANULATION 1+; TOXIC VACUOLATION PRESENT
[2017-05-08 08:53] LABS: ALANINE AMINOTRANSFERASE 32 U/L (21-72); ALBUMIN 2.5 g/dL (3.5-5.0); ALKALINE PHOSPHATASE 161 U/L (38-126); ANION GAP 8 (5-19); ASPARTATE AMINO TRANSFERASE 41 U/L (17-59); BILIRUBIN,DIRECT 1.9 mg/dL (0.0-0.4); BILIRUBIN,TOTAL 5.2 mg/dL (0.2-1.3); BLOOD UREA NITROGEN 17 mg/dL (7-20); CALCIUM 8.3 mg/dL (8.4-10.2); CARBON DIOXIDE 22 mmol/L (22-30); CHLORIDE 106 mmol/L (98-107); CREATININE RESULT 0.76 mg/dL (0.52-1.25); GLUCOSE 102 mg/dL (75-110); MAGNESIUM 1.9 mg/dL (1.6-2.3); POTASSIUM 3.3 mmol/L (3.6-5.0); SODIUM 135.5 mmol/L (137-145); TOTAL PROTEIN 6.7 g/dL (6.3-8.2)
[2017-05-08] MEDS: SPIRONOLACTONE 25 MG TABLET PO SCH (09:28)
[2017-05-08] MEDS: RIFAXIMIN 550 MG TABLET PO SCH ×2 (09:28→17:23)
[2017-05-08] MEDS: FUROSEMIDE 40 MG TABLET PO SCH ×2 (09:28→17:23)
[2017-05-08] MEDS ORDERED: (PENDING PHARMACY ID) (Spironolactone [Spironolactone] 100 MG) PO SCH (10:00)
[2017-05-08] MEDS ORDERED: CIPROFLOXACIN HCL 500 MG TABLET PO SCH (10:00)
[2017-05-08] MEDS ORDERED: POTASSIUM CHLORIDE 10 MEQ TABLET.SA PO ONE (11:32)
[2017-05-08] MEDS ORDERED: PHYTONADIONE INJ 10 MG/1 ML AMPULE SUBCUT ONE (11:41)
[2017-05-08] MEDS ORDERED: CEFOTAXIME SODIUM 2 GM in DEXTROSE 5%-WATER 50 ML IV SCH (11:45)
[2017-05-08 12:28] LABS: PROTHROMBIN TIME 19.6 SEC (11.4-15.4)
[2017-05-08 12:29] LABS: PARTIAL THROMBOPLASTIN TIME 40.8 SEC (23.5-35.8)
[2017-05-08] MEDS: CEFTRIAXONE 2 GM/D5W RTU 2 GM/50 ML RTUPB IV SCH (12:39)
--- NOTE | 2017-05-08 13:57 | RADIOLOGY REPORT (SQ) ---
EXAM DESCRIPTION: U/S ABDOMEN LIMITED W/O DOP COMPLETED DATE/TIME: 05/08/2017 1:47 pm REASON FOR STUDY: EVAL ASCITES COMPARISON: 05/06/2017 TECHNIQUE: Limited Static and real time joyce scale imaging performed of the 4 abdominal quadrants an d the midline. LIMITATIONS: None. FINDINGS: ASCITES: There is a trace amount of ascites. No intervention performed. OTHER: No other significant finding. IMPRESSION: Trace amount of ascites. TECHNICAL DOCUMENTATION: JOB ID: [id number] [employer]- All Rights Reserved
--- NOTE | 2017-05-08 18:24 | PDOC PROGRESS REPORT ---
Subjective Progress Note for:: 05/08/17 Subjective:: Patient is much improved today. He is awake, alert, oriented and accompanied by his . He does have some abdominal tenderness. Patient denies fever, chills, chest pain, shortness of breath, nausea, vomiting , or weakness. Physical Exam Vital Signs: Temp Pulse Resp BP Pulse Ox 98.1 F 72 20 113/71 100 05/07/17 23:26 05/07/17 23:26 05/07/17 23:26 05/07/17 23:26 05/07/17 23:26 Intake & Output 05/07/17 05/08/17 05/09/17 06:59 06:59 06:59 Intake Total 960 Output Total 850 Balance 110 Weight 70.5 kg Exam: GENERAL: Awake, alert, oriented 3, chronically ill-appearing, older than stated age appearing, no acute distress HEENT: Conjunctiva clear, jaundiced, moist mucous membranes, no JVD, midline trachea RESPIRATORY: Clear to auscultation bilaterally, no wheezes, no rhonchi CARDIAC: Regular rate and rhythm, no murmurs/gallops/rubs ABDOMEN: Soft, mildly distended,TTP oxana, positive bowel sounds, no rebound, + guarding EXTREMETIES: No cyanosis, clubbing; 1+ edema NEUROLOGIC: Alert, oriented to person/place/time, CN's grossly intact, no focal deficits SKIN: Jaundiced,caput medusa, multiple ecchymoses PSYCH: Normal mood, normal affect Results Laboratory Results: 05/08/17 04:35 05/08/17 04:35 WBC 1.8 L RBC 2.59 L Hgb 9.3 L Hct 26.4 L MCV 102 H MCH 35.9 H MCHC 35.2 RDW 14.0 Plt Count 37 L Assessment & Plan - Diagnosis (1) SBP (spontaneous bacterial peritonitis) Is this a current diagnosis for this admission?: YesPlan: Place patient on inpatient status and initiate patient on 2 g of Rocephin IV daily. Blood cultures have been obtained. Claforan is on back order. Obtain paracentesis for diagnostic purposes. In light of patient's thrombocytopenia may require coordination with blood products. Will obtain type and screen. Due to patient's prior coagulopathy, will give subcu vitamin K and recheck PT/ INR. (2) Hepatic encephalopathy Is this a current diagnosis for this admission?: Yes (3) Hepatic cirrhosis Qualifiers: Hepatic cirrhosis type: alcoholic cirrhosis Ascites presence: without ascites Qualified Code(s): K70.30 - Alcoholic cirrhosis of liver without ascites Is this a current diagnosis for this admission?: Yes (4) Coagulopathy Is this a current diagnosis for this admission?: Yes (5) Pancytopenia, acquired Is this a current diagnosis for this admission?: Yes - Time Time Spent with patient: 25-34 minutes Medications reviewed and adjusted accordingly: Yes - Inpatient Certification Based on my medical assessment, after consideration of the patient's comorbidities, presenting symptoms, or acuity I expect that the services needed warrant INPATIENT care.: Yes I certify that my determination is in accordance with my understanding of Medicare's requirements for reasonable and necessary INPATIENT services [42 CFR 412.3e].: Yes Medical Necessity: Need for IV Antibiotics, Risk of Complication if Not Cared For in Hospital, Risk of Diagnosis Which Will Require Inpatient Eval/Care/ Monitoring Post Hospital Care: D/C Locomotive Firer Documentation
[2017-05-08] MEDS: PRAMIPEXOLE DI-HCL 0.25 MG TABLET PO SCH (22:23)
--- NOTE | 2017-05-09 01:00 | RADIOLOGY REPORT (SQ) ---
EXAM DESCRIPTION: CT ABD/PELVIS ORAL ONLY COMPLETED DATE/TIME: 05/08/2017 9:31 pm REASON FOR STUDY: Abdominal pain, elevated LFTs, alcoholic cirrhosis COMPARISON: Ultrasound, 05/08/2017, 05/06/2017, 04/15/2017, 04/13/2017, 03/18/2016. TECHNIQUE: CT scan of the abdomen and pelvis performed without intravenous or oral contrast. Images reviewed with lung, soft tissue, and bone windows. Reconstructed coronal and sagittal MPR images revi ewed. All images stored on PACS. All CT scanners at this facility use dose modulation, iterative reconstruction, and/or weight based d osing when appropriate to reduce radiation dose to as low as reasonably achievable (ALARA). [facility]: Dose Right [facility]: CareDose [facility]: Dose Right [facility]: Teradose 4D [facility]: [employer] RADIATION DOSE: 12.28mGy. LIMITATIONS: Lack of IV and oral contrast. FINDINGS: LOWER CHEST: Small atelectasis or scar of the left lower lung. NON-CONTRASTED LIVER, SPLEEN, ADRENALS: Cirrhotic liver. Moderate-severe splenomegaly. PANCREAS: No masses. No peripancreatic inflammatory changes. GALLBLADDER: No identified stones by CT criteria. Moderate nonspecific pericholecystic fluid. RIGHT KIDNEY AND URETER: No suspicious masses. Assessment limited by lack of IV contrast. No signif icant calcifications. No hydronephrosis or hydroureter. LEFT KIDNEY AND URETER: No suspicious masses. Assessment limited by lack of IV contrast. No signifi cant calcifications. No hydronephrosis or hydroureter. AORTA AND RETROPERITONEUM: No aneurysm. Mild retroperitoneal lymphadenopathy. BOWEL AND PERITONEAL CAVITY: Moderate diffuse colonic bowel wall thickening with "thumbprinting" von margarito. Moderate diffuse distal ileal bowel wall thickening. Moderate lymphadenopathy includes 1.6 x 1 .5 cm likely matted lymph nodes. APPENDIX: Not visualized. PELVIS, BLADDER, AND ABDOMINAL WALL:Mild diffuse urinary bladder wall thickening. BONES: No significant findings. Mild T12 anterior vertebral wedging. OTHER: Scrotal clips. IMPRESSION: 1. Cirrhosis. Moderate ascites. 2. Nonspecific colonic and distal ileal bowel wall t hickening and moderate lymphadenopathy. Severe splenomegaly. Mild diffuse urinary bladder wall thic kening. Differential diagnosis includes infectious, inflammatory, and neoplastic processes. 3 limit ation. TECHNICAL DOCUMENTATION: JOB ID: [id number] Quality ID # [id number]: Final reports with documentation of one or more dose reduction techniques (e.g., Au tomated exposure control, adjustment of the mA and/or kV according to patient size, use of iterative reconstruction technique) 2010 [employer]- All Rights Reserved
[2017-05-09] MEDS: LANSOPRAZOLE 15 MG TAB.RAP.DR PO SCH ×3 (05:37→16:22)
--- NOTE | 2017-05-09 05:59 | Physician Advisory Note ---
Physician Advisor ProgressNote .: Pursuant to the plan for [facility], I have reviewed the medical record for this patient. Physician Advisor Statement: Excellent documentation of status decision-making, co-morbidities overall. Please also consider documentin. "Acute hyponatremia, likely due to ____" Thanks! CK
[2017-05-09] MEDS ORDERED: LACTULOSE SYRUP 20 GM/30 ML UDCUP PO SCH (10:00)
[2017-05-09] MEDS ORDERED: NORMAL SALINE 250 ML IV PRN ×2 (10:04)
[2017-05-09] MEDS: LACTULOSE SYRUP 20 GM/30 ML UDCUP PO SCH ×3 (10:34→18:13)
[2017-05-09] MEDS: SPIRONOLACTONE 25 MG TABLET PO SCH (10:35)
[2017-05-09] MEDS: RIFAXIMIN 550 MG TABLET PO SCH ×2 (10:35→18:13)
[2017-05-09] MEDS: FUROSEMIDE 40 MG TABLET PO SCH ×2 (10:36→18:12)
[2017-05-09 10:44] LABS: PROTHROMBIN TIME 21.5 SEC (11.4-15.4)
[2017-05-09 10:45] LABS: PARTIAL THROMBOPLASTIN TIME 43.9 SEC (23.5-35.8)
[2017-05-09 11:01] LABS: ALANINE AMINOTRANSFERASE 30 U/L (21-72); ALBUMIN 2.3 g/dL (3.5-5.0); ALKALINE PHOSPHATASE 270 U/L (38-126); ANION GAP 6 (5-19); ASPARTATE AMINO TRANSFERASE 38 U/L (17-59); BILIRUBIN,DIRECT 1.7 mg/dL (0.0-0.4); BILIRUBIN,TOTAL 4.2 mg/dL (0.2-1.3); BLOOD UREA NITROGEN 16 mg/dL (7-20); CALCIUM 8.1 mg/dL (8.4-10.2); CARBON DIOXIDE 24 mmol/L (22-30); CHLORIDE 103 mmol/L (98-107); CREATININE RESULT 0.81 mg/dL (0.52-1.25); GLUCOSE 144 mg/dL (75-110); POTASSIUM 4.8 mmol/L (3.6-5.0); SODIUM 132.7 mmol/L (137-145); TOTAL PROTEIN 6.3 g/dL (6.3-8.2)
[2017-05-09 11:07] LABS: ABSOLUTE EOSINOPHILS # (AUTO) 0.1 10^3/uL (0.0-0.6); ABSOLUTE LYMPHOCYTES (AUTO) 0.3 10^3/uL (0.5-4.7); ABSOLUTE MONOCYTES (AUTO) 0.4 10^3/uL (0.1-1.4); ABSOLUTE NEUT (AUTO) 2.1 10^3/uL (1.7-8.2); HEMATOCRIT 25.6 % (37.9-51.0); HEMOGLOBIN 9.1 g/dL (13.5-17.0); HGB HCT DIFFERENCE 1.7; MEAN CORPUSCULAR HEMOGLOBIN 36.6 pg (27.0-33.4); MEAN CORPUSCULAR HGB CONC 35.4 g/dL (32.0-36.0); MEAN CORPUSCULAR VOLUME 103 fl (80-97); MONOCYTES % (AUTO) 12.5 % (3-13); RED BLOOD COUNT 2.48 10^6/uL (4.35-5.55); RED CELL DISTRIBUTION WIDTH 13.9 % (11.5-14.0); SEGMENTED NEUTROPHILS % (AUTO) 74.5 % (42-78); WHITE BLOOD COUNT 2.8 10^3/uL (4.0-10.5)
[2017-05-09] MEDS ORDERED: ONDANSETRON HCL INJ/PF 4 MG/2 ML SDV IV PRN (11:11)
--- NOTE | 2017-05-09 15:30 | RADIOLOGY REPORT (SQ) ---
EXAM DESCRIPTION: U/S ABD PARACENTESIS COMPLETED DATE/TIME: 05/09/2017 3:13 pm REASON FOR STUDY: ascites, sbp COMPARISON None. LIMITATIONS: None. PROCEDURE: After obtaining informed consent, the patient was brought to the ultrasound suite. The p rocedure was performed with the patient on a gurney. Ultrasound was used to identify a prominent poc ket of ascites right lower quadrant. An appropriate access site was selected. The patient was prepp ed and draped in usual sterile fashion. The access site was anesthetized with 5 mL 1% lidocaine. A [id number] needle was advanced into the fluid. After aspiration of fluid the needle, the carlos ter was advanced off the needle into the fluid. A total of 1,000 mL of calvin fluid was removed. The patient tolerated the procedure well left the department in satisfactory condition. IMPRESSION: Successful ultrasound-guided paracentesis COMMENT: Patient medication list reviewed: Yes- Quality ID# [id number]:Eligible professional attests to doc umenting in the medical record they obtained, updated, or reviewed the patient's current medications. Quality ID #[id number]: The patient was prepped and draped using maximum sterile barrier technique including cap, mask, sterile gown, sterile gloves, a large sterile sheet, hand hygiene, and 2% Chlorhexidine fo r cutaneous antisepsis. When ultrasound is used, sterile ultrasound techniques are followed requiring sterile gel and sterile probes. Quality ID #[id number]: Final reports for procedures using fluoroscopy that document radiation exposure latanya adalid, or exposure time and number of fluorographic images (if radiation exposure indices are not avail able) TECHNICAL DOCUMENTATION: JOB ID: [id number] [employer]- All Rights Reserved
[2017-05-09] MEDS: CEFTRIAXONE 2 GM/D5W RTU 2 GM/50 ML RTUPB IV SCH (15:37)
[2017-05-09 15:50] LABS: ABSOLUTE EOSINOPHILS # (AUTO) 0.1 10^3/uL (0.0-0.6); ABSOLUTE LYMPHOCYTES (AUTO) 0.3 10^3/uL (0.5-4.7); ABSOLUTE MONOCYTES (AUTO) 0.4 10^3/uL (0.1-1.4); EOSINOPHILS % (AUTO) 2.6 % (0-6); HEMATOCRIT 27.1 % (37.9-51.0); HEMOGLOBIN 9.9 g/dL (13.5-17.0); HGB HCT DIFFERENCE 2.6; LYMPHOCYTES % (AUTO) 11.7 % (13-45); MEAN CORPUSCULAR HEMOGLOBIN 36.5 pg (27.0-33.4); MEAN CORPUSCULAR HGB CONC 36.5 g/dL (32.0-36.0); MEAN CORPUSCULAR VOLUME 100 fl (80-97); MONOCYTES % (AUTO) 13.6 % (3-13); RED BLOOD COUNT 2.71 10^6/uL (4.35-5.55); RED CELL DISTRIBUTION WIDTH 14.1 % (11.5-14.0); SEGMENTED NEUTROPHILS % (AUTO) 71.1 % (42-78); WHITE BLOOD COUNT 2.9 10^3/uL (4.0-10.5)
[2017-05-09 15:52] LABS: FLUID TYPE PERITONEAL
[2017-05-09 15:53] LABS: FLUID APPEARANCE CLEAR; FLUID RBC SIDE 1 77; FLUID RBC SIDE 2 71
[2017-05-09 15:54] LABS: FLUID RBC DILUENT USED NONE USED; FLUID RBC DILUTION FACTOR 1
[2017-05-09 15:56] LABS: TOTAL RBC SQUARES COUNTED FLD 5
--- NOTE | 2017-05-09 17:19 | PDOC PROGRESS REPORT ---
Subjective Progress Note for:: 05/09/17 Subjective:: Patient is much improved today. He is awake, alert, oriented and accompanied by his . He does have some abdominal tenderness. Patient denies fever, chills, chest pain, shortness of breath, nausea, vomiting , or weakness. Physical Exam Vital Signs: Temp Pulse Resp BP Pulse Ox 97.9 F 101 H 18 109/68 100 05/09/17 12:55 05/09/17 12:55 05/09/17 12:55 05/09/17 12:55 05/09/17 12:55 Intake & Output 05/08/17 05/09/17 05/10/17 06:59 06:59 06:59 Intake Total 960 660 497 Output Total 850 Balance 110 660 497 Weight 70.5 kg 70.5 kg Exam: GENERAL: Awake, alert, oriented 3, chronically ill-appearing, older than stated age appearing, no acute distress HEENT: Conjunctiva clear, sclera jaundiced, moist mucous membranes, no JVD, midline trachea RESPIRATORY: Clear to auscultation bilaterally, no wheezes, no rhonchi CARDIAC: Regular rate and rhythm, no murmurs/gallops/rubs ABDOMEN: Soft, mildly distended,TTP RLQ, positive bowel sounds, no rebound, + guarding EXTREMETIES: No cyanosis, clubbing; 1+ edema NEUROLOGIC: Alert, oriented to person/place/time, CN's grossly intact, no focal deficits SKIN: Jaundiced,caput medusa, multiple ecchymoses PSYCH: Normal mood, normal affect Results Laboratory Results: 05/09/17 10:29 05/09/17 10:29 05/08/17 05/08/17 05/09/17 07:58 12:09 10:29 WBC 2.8 L RBC 2.48 L Hgb 9.1 L Hct 25.6 L MCV 103 H MCH 36.6 H MCHC 35.4 RDW 13.9 Plt Count 41 L Seg Neutrophils % 74.5 Lymphocytes % 10.0 L Monocytes % 12.5 Eosinophils % 2.0 Basophils % 1.0 Absolute Neutrophils 2.1 Absolute Lymphocytes 0.3 L Absolute Monocytes 0.4 Absolute Eosinophils 0.1 Absolute Basophils 0.0 Sodium Potassium Chloride Carbon Dioxide Anion Gap BUN Creatinine Est GFR ( Amer) Est GFR (Non-Af Amer) Glucose Calcium Transferrin 180 L Total Bilirubin AST ALT Alkaline Phosphatase Ammonia Total Protein Albumin Blood Type O POSITIVE Antibody Screen NEGATIVE 05/09/17 05/09/17 10:29 10:29 WBC RBC Hgb Hct MCV MCH MCHC RDW Plt Count Seg Neutrophils % Lymphocytes % Monocytes % Eosinophils % Basophils % Absolute Neutrophils Absolute Lymphocytes Absolute Monocytes Absolute Eosinophils Absolute Basophils Sodium 132.7 L Potassium 4.8 Chloride 103 Carbon Dioxide 24 Anion Gap 6 BUN 16 Creatinine 0.81 Est GFR ( Amer) > 60 Est GFR (Non-Af Amer) > 60 Glucose 144 H Calcium 8.1 L Transferrin Total Bilirubin 4.2 H AST 38 ALT 30 Alkaline Phosphatase 270 H Ammonia 50.0 H Total Protein 6.3 Albumin 2.3 L Blood Type Antibody Screen Impressions: Abdomen Ultrasound 05/08/17 00:00 IMPRESSION: Trace amount of ascites. Abdomen/Pelvis CT 05/08/17 00:00 IMPRESSION: 1. Cirrhosis. Moderate ascites. 2. Nonspecific colonic and distal ileal bowel wall thickening and moderate lymphadenopathy. Severe splenomegaly. Mild diffuse urinary bladder wall thickening. Differential diagnosis includes infectious, inflammatory, and neoplastic processes. 3 limitation. Assessment & Plan - Diagnosis (1) SBP (spontaneous bacterial peritonitis) Is this a current diagnosis for this admission?: YesPlan: Patient on 2 g of Rocephin IV daily. Blood cultures currently pending and negative. CT of the abdomen was performed yesterday and revealed significant stranding in the ileum and some bowel thickening. Patient continues to have tenderness. Patient white count improved on empiric therapy for SBP. Patient is to have diagnostic paracentesis today. Patient is on outpatient cipro. C.diff was negative. (2) Hepatic encephalopathy Is this a current diagnosis for this admission?: YesPlan: Improved. Patient is back to baseline. (3) Hepatic cirrhosis Qualifiers: Hepatic cirrhosis type: alcoholic cirrhosis Ascites presence: with ascites Qualified Code(s): K70.31 - Alcoholic cirrhosis of liver with ascites Is this a current diagnosis for this admission?: YesPlan: Continue supportive care with rifaximin, lactulose, spironolactone, and Lasix. Consulted palliative care. (4) Coagulopathy Is this a current diagnosis for this admission?: Yes (5) Pancytopenia, acquired Is this a current diagnosis for this admission?: YesPlan: secondary to #3 - Time Time Spent with patient: 35 or more minutes Medications reviewed and adjusted accordingly: Yes Anticipated discharge: Home with Homehealth Within: within 48 hours, within 72 hours - Inpatient Certification Based on my medical assessment, after consideration of the patient's comorbidities, presenting symptoms, or acuity I expect that the services needed warrant INPATIENT care.: Yes I certify that my determination is in accordance with my understanding of Medicare's requirements for reasonable and necessary INPATIENT services [42 CFR 412.3e].: Yes Medical Necessity: Need for IV Antibiotics 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
--- NOTE | 2017-05-09 21:51 | Progress Note ---
Provider Note Provider Note: PC visit made 3:10- 3;45 PM. 05/09/17 Appreciate palliative consult for this 56 year old man who was admitted with hepatic encephalopathy from chronic cirrhosis. His ammonia level improved as did his mentation with medication. He also has pancytopenia and anemia without evidence GI bleed. He has been sober for 6 months and is hoping to be evaluated for liver transplant. I talked with patients while patient was returning from paracentesis. He returned and was alert, oriented and stated he felt much better after a liter of fluid was removed. He has had multiple taps in the past for 4-5000 ml. He was happy that there wasn't as much this time. We discussed advanced directives and documentation of his wishes for end of life care. He says he is pretty sure he does not want to have resusscitaion efforts, including CPR, mechanical ventilation or feeding tube. His is supportive of these decisions. They have paper work at home ([place] advance directive documentation), which they have not completed. I gave them a MOST form and showed them the DNR form. Mr. Moulton wanted to look these over and talk with his , who had to leve the hospital for an appointment.. I told him when he made up his mind, his doctor could sign these for him, or they could call me and I will be glad to come to hospital or their home to complete. 35 minutes spent with patient and his .
[2017-05-09] MEDS: PRAMIPEXOLE DI-HCL 0.25 MG TABLET PO SCH (22:30)
[2017-05-09] MEDS: METRONIDAZOLE 500 MG TABLET PO SCH (22:30)
[2017-05-10] MEDS: METRONIDAZOLE 500 MG TABLET PO SCH ×3 (05:51→21:28)
[2017-05-10] MEDS: LANSOPRAZOLE 15 MG TAB.RAP.DR PO SCH ×2 (05:51→17:11)
[2017-05-10 08:41] LABS: ABSOLUTE EOSINOPHILS # (AUTO) 0.1 10^3/uL (0.0-0.6); ABSOLUTE LYMPHOCYTES (AUTO) 0.3 10^3/uL (0.5-4.7); ABSOLUTE MONOCYTES (AUTO) 0.4 10^3/uL (0.1-1.4); ABSOLUTE NEUT (AUTO) 2.1 10^3/uL (1.7-8.2); BASOPHILS % (AUTO) 1.6 % (0-2); EOSINOPHILS % (AUTO) 2.9 % (0-6); HEMATOCRIT 26.4 % (37.9-51.0); HEMOGLOBIN 9.5 g/dL (13.5-17.0); HGB HCT DIFFERENCE 2.1; LYMPHOCYTES % (AUTO) 9.6 % (13-45); MEAN CORPUSCULAR HEMOGLOBIN 36.6 pg (27.0-33.4); MEAN CORPUSCULAR HGB CONC 36.1 g/dL (32.0-36.0); MEAN CORPUSCULAR VOLUME 101 fl (80-97); MONOCYTES % (AUTO) 14.7 % (3-13); RED CELL DISTRIBUTION WIDTH 13.9 % (11.5-14.0); SEGMENTED NEUTROPHILS % (AUTO) 71.2 % (42-78)
[2017-05-10 08:48] LABS: ANION GAP 6 (5-19); BLOOD UREA NITROGEN 17 mg/dL (7-20); CALCIUM 8.1 mg/dL (8.4-10.2); CARBON DIOXIDE 25 mmol/L (22-30); CHLORIDE 103 mmol/L (98-107); CREATININE RESULT 0.84 mg/dL (0.52-1.25); GLUCOSE 111 mg/dL (75-110)
[2017-05-10] MEDS: SPIRONOLACTONE 25 MG TABLET PO SCH (10:13)
[2017-05-10] MEDS: LACTULOSE SYRUP 20 GM/30 ML UDCUP PO SCH ×3 (10:13→17:12)
[2017-05-10] MEDS: RIFAXIMIN 550 MG TABLET PO SCH ×2 (10:14→17:12)
[2017-05-10] MEDS: FUROSEMIDE 40 MG TABLET PO SCH ×2 (10:15→17:11)
[2017-05-10] MEDS: CEFTRIAXONE 2 GM/D5W RTU 2 GM/50 ML RTUPB IV SCH (13:49)
--- NOTE | 2017-05-10 15:03 | PDOC PROGRESS REPORT ---
Subjective Progress Note for:: 05/10/17 Subjective:: Patient is much improved today. He is awake, alert, oriented. He does have some abdominal tenderness, but it is improved. Patient denies fever, chills, chest pain, shortness of breath, nausea, vomiting , or weakness. Physical Exam Vital Signs: Temp Pulse Resp BP Pulse Ox 98.4 F 77 16 112/54 L 100 05/09/17 23:44 05/09/17 23:44 05/09/17 23:44 05/09/17 23:44 05/09/17 23:44 Intake & Output 05/09/17 05/10/17 05/11/17 06:59 06:59 06:59 Intake Total 660 2388 Output Total 900 Balance 660 1488 Weight 70.5 kg 70.4 kg Exam: GENERAL: Awake, alert, oriented 3, chronically ill-appearing, older than stated age appearing, no acute distress HEENT: Conjunctiva clear, sclera jaundiced, moist mucous membranes, no JVD, midline trachea RESPIRATORY: Clear to auscultation bilaterally, no wheezes, no rhonchi CARDIAC: Regular rate and rhythm, no murmurs/gallops/rubs ABDOMEN: Soft, mildly distended,TTP RLQ, positive bowel sounds, no rebound, EXTREMETIES: No cyanosis, clubbing; 1+ edema NEUROLOGIC: Alert, oriented to person/place/time, CN's grossly intact, no focal deficits SKIN: Jaundiced,caput medusa, multiple ecchymoses PSYCH: Normal mood, normal affect Results Laboratory Results: 05/09/17 15:32 05/09/17 10:29 05/08/17 05/09/17 05/09/17 12:09 10:29 10:29 WBC 2.8 L RBC 2.48 L Hgb 9.1 L Hct 25.6 L MCV 103 H MCH 36.6 H MCHC 35.4 RDW 13.9 Plt Count 41 L Seg Neutrophils % 74.5 Lymphocytes % 10.0 L Monocytes % 12.5 Eosinophils % 2.0 Basophils % 1.0 Absolute Neutrophils 2.1 Absolute Lymphocytes 0.3 L Absolute Monocytes 0.4 Absolute Eosinophils 0.1 Absolute Basophils 0.0 Sodium 132.7 L Potassium 4.8 Chloride 103 Carbon Dioxide 24 Anion Gap 6 BUN 16 Creatinine 0.81 Est GFR ( Amer) > 60 Est GFR (Non-Af Amer) > 60 Glucose 144 H Calcium 8.1 L Total Bilirubin 4.2 H AST 38 ALT 30 Alkaline Phosphatase 270 H Ammonia Total Protein 6.3 Albumin 2.3 L Fluid Type Fluid Source Fluid Color Fluid Appearance Fluid Viscosity Fluid WBC Fluid RBC Blood Type O POSITIVE Antibody Screen NEGATIVE 05/09/17 05/09/17 05/09/17 10:29 14:58 15:32 WBC 2.9 L RBC 2.71 L Hgb 9.9 L Hct 27.1 L MCV 100 H MCH 36.5 H MCHC 36.5 H RDW 14.1 H Plt Count 54 L Seg Neutrophils % 71.1 Lymphocytes % 11.7 L Monocytes % 13.6 H Eosinophils % 2.6 Basophils % 1.0 Absolute Neutrophils 2.0 Absolute Lymphocytes 0.3 L Absolute Monocytes 0.4 Absolute Eosinophils 0.1 Absolute Basophils 0.0 Sodium Potassium Chloride Carbon Dioxide Anion Gap BUN Creatinine Est GFR ( Amer) Est GFR (Non-Af Amer) Glucose Calcium Total Bilirubin AST ALT Alkaline Phosphatase Ammonia 50.0 H Total Protein Albumin Fluid Type PERITONEAL Fluid Source ASCITES Fluid Color YELLOW Fluid Appearance CLEAR Fluid Viscosity LIQUID Fluid WBC 69 Fluid RBC 3700 Blood Type Antibody Screen 05/09/17 17:40 WBC RBC Hgb Hct MCV MCH MCHC RDW Plt Count Seg Neutrophils % Lymphocytes % Monocytes % Eosinophils % Basophils % Absolute Neutrophils Absolute Lymphocytes Absolute Monocytes Absolute Eosinophils Absolute Basophils Sodium Potassium Chloride Carbon Dioxide Anion Gap BUN Creatinine Est GFR ( Amer) Est GFR (Non-Af Amer) Glucose Calcium Total Bilirubin AST ALT Alkaline Phosphatase Ammonia Total Protein Albumin 2.7 L Fluid Type Fluid Source Fluid Color Fluid Appearance Fluid Viscosity Fluid WBC Fluid RBC Blood Type Antibody Screen Impressions: Abdomen Ultrasound 05/08/17 00:00 IMPRESSION: Trace amount of ascites. Abdomen/Pelvis CT 05/08/17 00:00 IMPRESSION: 1. Cirrhosis. Moderate ascites. 2. Nonspecific colonic and distal ileal bowel wall thickening and moderate lymphadenopathy. Severe splenomegaly. Mild diffuse urinary bladder wall thickening. Differential diagnosis includes infectious, inflammatory, and neoplastic processes. 3 limitation. Paracentesis Ultrasound 05/09/17 10:03 IMPRESSION: Successful ultrasound-guided paracentesis Assessment & Plan - Diagnosis (1) SBP (spontaneous bacterial peritonitis) Is this a current diagnosis for this admission?: YesPlan: Patient on 2 g of Rocephin IV daily. Blood cultures currently pending and negative. Paracentesis fluid revealed lymphocytic fluid, and he received 2 days of antibiotics prior to tap. CT of the abdomen was performed yesterday and revealed significant stranding in the ileum and some bowel thickening. Patient continues to have tenderness. Patient white count improved (WBC 3.0) on empiric therapy for SBP. Patient is to have diagnostic paracentesis today. Patient is on outpatient cipro. C.diff was negative. (2) Hepatic encephalopathy Is this a current diagnosis for this admission?: YesPlan: Improved. Patient is back to baseline. Continue lactulose and rifaximin. (3) Hepatic cirrhosis Qualifiers: Hepatic cirrhosis type: alcoholic cirrhosis Ascites presence: with ascites Qualified Code(s): K70.31 - Alcoholic cirrhosis of liver with ascites Is this a current diagnosis for this admission?: YesPlan: Continue supportive care with rifaximin, lactulose, spironolactone, and Lasix. Consulted palliative care. (4) Coagulopathy Is this a current diagnosis for this admission?: YesPlan: secondary to #3. (5) Pancytopenia, acquired Is this a current diagnosis for this admission?: YesPlan: secondary to #3 (6) DNR (do not resuscitate) Is this a current diagnosis for this admission?: YesPlan: surrogate decision maker Patient elected to change his code status today - Time Time Spent with patient: 25-34 minutes Medications reviewed and adjusted accordingly: Yes Anticipated discharge: Home with Homehealth Within: within 72 hours
[2017-05-10] MEDS: PRAMIPEXOLE DI-HCL 0.25 MG TABLET PO SCH (21:28)
[2017-05-11] MEDS: METRONIDAZOLE 500 MG TABLET PO SCH ×3 (06:04→21:44)
[2017-05-11] MEDS: LANSOPRAZOLE 15 MG TAB.RAP.DR PO SCH (06:04)
[2017-05-11 09:20] LABS: ABSOLUTE EOSINOPHILS # (AUTO) 0.1 10^3/uL (0.0-0.6); ABSOLUTE LYMPHOCYTES (AUTO) 0.2 10^3/uL (0.5-4.7); ABSOLUTE MONOCYTES (AUTO) 0.2 10^3/uL (0.1-1.4); ABSOLUTE NEUT (AUTO) 1.9 10^3/uL (1.7-8.2); BASOPHILS % (AUTO) 0.9 % (0-2); HEMATOCRIT 27.6 % (37.9-51.0); HEMOGLOBIN 9.5 g/dL (13.5-17.0); HGB HCT DIFFERENCE 0.9; LYMPHOCYTES % (AUTO) 7.8 % (13-45); MEAN CORPUSCULAR HEMOGLOBIN 35.4 pg (27.0-33.4); MEAN CORPUSCULAR HGB CONC 34.6 g/dL (32.0-36.0); MEAN CORPUSCULAR VOLUME 102 fl (80-97); RED CELL DISTRIBUTION WIDTH 14.2 % (11.5-14.0); SEGMENTED NEUTROPHILS % (AUTO) 78.3 % (42-78); WHITE BLOOD COUNT 2.5 10^3/uL (4.0-10.5)
[2017-05-11] MEDS: RIFAXIMIN 550 MG TABLET PO SCH ×2 (09:42→17:29)
[2017-05-11] MEDS: SPIRONOLACTONE 25 MG TABLET PO SCH (09:42)
[2017-05-11] MEDS: LACTULOSE SYRUP 20 GM/30 ML UDCUP PO SCH ×3 (09:43→17:30)
[2017-05-11] MEDS: FUROSEMIDE 40 MG TABLET PO SCH ×2 (09:43→17:29)
[2017-05-11] MEDS: CEFTRIAXONE 2 GM/D5W RTU 2 GM/50 ML RTUPB IV SCH (13:48)
--- NOTE | 2017-05-11 15:05 | PDOC PROGRESS REPORT ---
Subjective Progress Note for:: 05/11/17 Subjective:: Reports his abdomen is only occasionally tender, much less frequently than previous. Patient denies fever, chills, chest pain, shortness of breath, nausea, vomiting , or weakness. Had a loose stools from the lactulose. Physical Exam Vital Signs: Temp Pulse Resp BP Pulse Ox 97.6 F 66 18 107/70 100 05/11/17 08:00 05/11/17 08:00 05/11/17 08:00 05/11/17 08:00 05/11/17 08:00 Intake & Output 05/10/17 05/11/17 05/12/17 06:59 06:59 06:59 Intake Total 2388 490 Output Total 900 1100 Balance 1488 -610 Weight 70.4 kg 71.3 kg Exam: GENERAL: Awake, alert, oriented 3, chronically ill-appearing, older than stated age appearing, no acute distress HEENT: Conjunctiva clear, sclera jaundiced, moist mucous membranes, no JVD, midline trachea RESPIRATORY: Clear to auscultation bilaterally, no wheezes, no rhonchi CARDIAC: Regular rate and rhythm, no murmurs/gallops/rubs ABDOMEN: Soft, mildly distended +fluid wave,NTTP, hyperactive bowel sounds, no rebound, EXTREMETIES: No cyanosis, clubbing; 1+ edema NEUROLOGIC: Alert, oriented to person/place/time, CN's grossly intact, no focal deficits SKIN: Jaundiced,caput medusa, multiple ecchymoses PSYCH: Normal mood, normal affect Results Laboratory Results: 05/11/17 08:46 05/10/17 08:06 05/11/17 08:46 WBC 2.5 L RBC 2.70 L Hgb 9.5 L Hct 27.6 L MCV 102 H MCH 35.4 H MCHC 34.6 RDW 14.2 H Plt Count 54 L Seg Neutrophils % 78.3 H Lymphocytes % 7.8 L Monocytes % 10.0 Eosinophils % 3.0 Basophils % 0.9 Absolute Neutrophils 1.9 Absolute Lymphocytes 0.2 L Absolute Monocytes 0.2 Absolute Eosinophils 0.1 Absolute Basophils 0.0 Impressions: Abdomen Ultrasound 05/08/17 00:00 IMPRESSION: Trace amount of ascites. Abdomen/Pelvis CT 05/08/17 00:00 IMPRESSION: 1. Cirrhosis. Moderate ascites. 2. Nonspecific colonic and distal ileal bowel wall thickening and moderate lymphadenopathy. Severe splenomegaly. Mild diffuse urinary bladder wall thickening. Differential diagnosis includes infectious, inflammatory, and neoplastic processes. 3 limitation. Paracentesis Ultrasound 05/09/17 10:03 IMPRESSION: Successful ultrasound-guided paracentesis Assessment & Plan - Diagnosis (1) SBP (spontaneous bacterial peritonitis) Is this a current diagnosis for this admission?: YesPlan: Patient on 2 g of Rocephin IV daily. On day #4 of 5 for treatment of spontaneous bacterial peritonitis. Blood cultures currently pending and negative. Paracentesis fluid revealed lymphocytic fluid, and he received 2 days of antibiotics prior to tap. CT of the abdomen was performed yesterday and revealed significant stranding in the ileum and some bowel thickening. Patient continues to have tenderness. Patient white count improved (WBC 2.5) on empiric therapy for SBP. Patient is on outpatient cipro. C.diff was negative. (2) Hepatic encephalopathy Is this a current diagnosis for this admission?: YesPlan: Improved. Patient is back to baseline. Continue lactulose and rifaximin. (3) Hepatic cirrhosis Qualifiers: Hepatic cirrhosis type: alcoholic cirrhosis Ascites presence: with ascites Qualified Code(s): K70.31 - Alcoholic cirrhosis of liver with ascites Is this a current diagnosis for this admission?: YesPlan: Continue supportive care with rifaximin, lactulose, spironolactone, and Lasix. Consulted palliative care. (4) Coagulopathy Is this a current diagnosis for this admission?: Yes (5) Pancytopenia, acquired Is this a current diagnosis for this admission?: Yes (6) Hyponatremia Is this a current diagnosis for this admission?: YesPlan: Volume Overload from cirrhosis and Lasix use. (7) DNR (do not resuscitate) Is this a current diagnosis for this admission?: Yes - Time Time Spent with patient: 25-34 minutes Medications reviewed and adjusted accordingly: Yes
[2017-05-11] MEDS: PRAMIPEXOLE DI-HCL 0.25 MG TABLET PO SCH (21:44)
[2017-05-12] MEDS: METRONIDAZOLE 500 MG TABLET PO SCH (05:10)
[2017-05-12 08:13] LABS: HEMATOCRIT 28.4 % (37.9-51.0); HEMOGLOBIN 9.9 g/dL (13.5-17.0); HGB HCT DIFFERENCE 1.3; MEAN CORPUSCULAR HEMOGLOBIN 35.7 pg (27.0-33.4); MEAN CORPUSCULAR HGB CONC 34.9 g/dL (32.0-36.0); MEAN CORPUSCULAR VOLUME 102 fl (80-97); RED BLOOD COUNT 2.79 10^6/uL (4.35-5.55); RED CELL DISTRIBUTION WIDTH 14.3 % (11.5-14.0)
[2017-05-12 08:33] LABS: BAND NEUTROPHILS % (MANUAL) 2 % (3-5); BASOPHILS % (MANUAL) 2 % (0-2); EOSINOPHILS % (MANUAL) 2 % (0-6); LYMPHOCYTES % (MANUAL) 7 % (13-45); TOTAL CELLS COUNTED 100
[2017-05-12 08:35] LABS: ALANINE AMINOTRANSFERASE 35 U/L (21-72); ALBUMIN 2.8 g/dL (3.5-5.0); ALKALINE PHOSPHATASE 238 U/L (38-126); ANION GAP 11 (5-19); ASPARTATE AMINO TRANSFERASE 45 U/L (17-59); BILIRUBIN,TOTAL 6.1 mg/dL (0.2-1.3); BLOOD UREA NITROGEN 16 mg/dL (7-20); CALCIUM 8.2 mg/dL (8.4-10.2); CARBON DIOXIDE 23 mmol/L (22-30); CHLORIDE 98 mmol/L (98-107); CREATININE RESULT 0.78 mg/dL (0.52-1.25); GLUCOSE 99 mg/dL (75-110); TOTAL PROTEIN 7.2 g/dL (6.3-8.2)
[2017-05-12] MEDS: FUROSEMIDE 40 MG TABLET PO SCH (10:37)
[2017-05-12] MEDS: RIFAXIMIN 550 MG TABLET PO SCH (10:37)
[2017-05-12] MEDS: LACTULOSE SYRUP 20 GM/30 ML UDCUP PO SCH (10:39)
[2017-05-12] MEDS: SPIRONOLACTONE 25 MG TABLET PO SCH (10:39)
[2017-05-12] MEDS: CEFTRIAXONE 2 GM/D5W RTU 2 GM/50 ML RTUPB IV SCH (12:50)
[2017-05-12 13:09] VITALS: BP 109/54
--- NOTE | 2017-05-13 20:06 | PDOC DISCHARGE SUMMARY ---
General - Admit/Disc Date/PCP Admission Date/Primary Care Provider: 05/07/17 11:39 Discharge Date: 05/12/17 - Discharge Diagnosis (1) SBP (spontaneous bacterial peritonitis) Is this a current diagnosis for this admission?: Yes (2) Hepatic encephalopathy Is this a current diagnosis for this admission?: Yes (3) Hepatic cirrhosis Is this a current diagnosis for this admission?: Yes (4) Coagulopathy Is this a current diagnosis for this admission?: Yes (5) Pancytopenia, acquired Is this a current diagnosis for this admission?: Yes (6) Hyponatremia Is this a current diagnosis for this admission?: Yes (7) DNR (do not resuscitate) Is this a current diagnosis for this admission?: Yes - Additional Information Resuscitation Status: Full Code Discharge Diet: Cardiac Discharge Activity: Activity As Tolerated Home Medications: Albuterol Sulfate [Proair HFA] 1 puff PO Q4HP PRN 05/07/17 Furosemide 40 mg PO BID 05/07/17 Pramipexole Di-HCl [Mirapex 0.25 mg Tablet] 0.125 mg PO QHS 05/07/17 Rifaximin [Xifaxan] 550 mg PO BID 05/07/17 Spironolactone 100 mg PO DAILY 05/07/17 Ciprofloxacin HCl [Cipro 500 mg Tablet] 500 mg PO DAILY tablet 05/12/17 Lactulose 20 gm PO TID #120 ml 05/12/17 History of Present Illness History of Present Illness: Patient is a 56-year-old male, with history of alcoholic cirrhosis of the liver , presenting to the emergency department by his and son are concerned because he had altered mental status since yesterday. Patient's states that the patient did not take his Lactulose yesterday, and he was up all night banging on doors. Patient's son stayed up with the patient, but the patient has no recollection. According to the , patient is only able to say his name, and cannot follow commands. Patient's denies any fever, vomiting, diarrhea. Patient's son reports that the patient has had 3 bowel movements this morning between the hours of 2 AM and 7 AM. Patient's son states that these were not followed, but he did not note any blood. Patient's states that the patient came to [facility] yesterday to have his ascites drained, but it did not need to be drained at that time. Patient's states that the patient is cold all the time, but denies chills, she was able to give the patient most of his medications this morning inlcuding 30 mL of Lactulose, except for 1 pill which he refused to take secondary to his altered mental status. Patient's labs are found to be unremarkable with the exception of an elevated ammonia and pancytopenia which is chronic and he is referred to the hospitalist service for evaluation of his altered mental status. Hospital Course Hospital Course: Patient was admitted and given lactulose with improvement of his mentation, but prior to discharge that following day patient's physical examination revealed abdominal pain. Patient was empirically started on treatment for SBP and a CAT scan was obtained which revealed some stranding of his colon. Patient was empirically started on treatment for SBP with improvement of this and patient's fluid was collected 48 hours later. Subsequently, the fluid did not grow out any organisms. Patient's lactulose was titrated and his pancytopenia improved to near his baseline and he was stable for discharge home. Physical Exam Vital Signs: Temp Pulse Resp BP Pulse Ox 97.6 F 76 16 109/54 L 100 05/12/17 13:06 05/12/17 13:06 05/12/17 13:06 05/12/17 13:06 05/12/17 13:06 Intake & Output 05/12/17 05/13/17 05/14/17 06:59 06:59 06:59 Intake Total 1156 Balance 1156 Weight 71.3 kg Exam: GENERAL: Awake, alert, oriented 3, chronically ill-appearing, older than stated age appearing, no acute distress HEENT: Conjunctiva clear, sclera jaundiced, moist mucous membranes, no JVD, midline trachea RESPIRATORY: Clear to auscultation bilaterally, no wheezes, no rhonchi CARDIAC: Regular rate and rhythm, no murmurs/gallops/rubs ABDOMEN: Soft, mildly distended +fluid wave, NTTP, umbilical hernia, hyperactive bowel sounds, no rebound, EXTREMETIES: No cyanosis, clubbing; 1+ edema NEUROLOGIC: Alert, oriented to person/place/time, CN's grossly intact, no focal deficits SKIN: Jaundiced,caput medusa, multiple ecchymoses PSYCH: Normal mood, normal affect Results Laboratory Results: 05/12/17 07:42 05/12/17 07:42 05/08/17 14:02 Blood Blood Culture - Final NO GROWTH IN 5 DAYS 05/08/17 12:09 Blood Blood Culture - Final NO GROWTH IN 5 DAYS 05/09/17 14:58 Peritoneal Gram Stain - Final 05/09/17 14:58 Peritoneal Body Fluid Culture - Final NO AEROBIC OR ANAEROBIC ORGANISMS RECOVERED 05/07/17 22:20 Blood Blood Culture - Final NO GROWTH IN 5 DAYS 05/07/17 21:15 Blood Blood Culture - Final NO GROWTH IN 5 DAYS Impressions: Abdomen Ultrasound 05/08/17 00:00 IMPRESSION: Trace amount of ascites. Abdomen/Pelvis CT 05/08/17 00:00 IMPRESSION: 1. Cirrhosis. Moderate ascites. 2. Nonspecific colonic and distal ileal bowel wall thickening and moderate lymphadenopathy. Severe splenomegaly. Mild diffuse urinary bladder wall thickening. Differential diagnosis includes infectious, inflammatory, and neoplastic processes. 3 limitation. Paracentesis Ultrasound 05/09/17 10:03 IMPRESSION: Successful ultrasound-guided paracentesis Qualifiers PATEINT BEING DISCHARGED WITH ANY OF THE FOLLOWING DIAGNOSIS?: No Plan Time Spent: Less than 30 Minutes
== END 2017-05-12 14:11 | disposition home or self-care (01) | DRG 372 ==
LOC: ER 08:21 → EH 11:06 → OBSVTOIN 11:39 → 4W 13:34 → 4N 05-08 17:50
PROVIDERS: ADMIT Family Medicine; ATTEND Family Medicine
PROC: 0W9G3ZX Drainage of Peritoneal Cavity, Percutaneous Approach, Diagnostic (ICD-10-PCS; principal; 2017-05-09)
DX: K65.2 Spontaneous bacterial peritonitis (principal); D61.818 Other pancytopenia; E87.1 Hypo-osmolality and hyponatremia; Z66 Do not resuscitate; K42.9 Umbilical hernia without obstruction or gangrene; I86.8 Varicose veins of other specified sites; D64.9 Anemia, unspecified; M19.90 Unspecified osteoarthritis, unspecified site; K70.40 Alcoholic hepatic failure without coma; F10.20 Alcohol dependence, uncomplicated; K70.31 Alcoholic cirrhosis of liver with ascites; Z79.899 Other long term (current) drug therapy; Z87.891 Personal history of nicotine dependence; Z82.61 Family history of arthritis; Z82.49 Family history of ischemic heart disease and other diseases of the circulatory system; Z82.3 Family history of stroke
CPT/HCPCS: 36415; 36430; 49083; 51701; 74176; 76705; 80048; 80053; 80307; 81001; 82040; 82042; 82140; 82150; 82553; 82607; 82728; 82746; 83540; 83550; 83615; 83690; 83735; 83880; 84466; 84484; 85025; 85045; 85610; 85730; 86850; 86900; 86901; 87040; 87070; 87075; 87086; 87205; 87493; 89050; 99291; A9270-GY; G0378; J0696; J3430; J3490; P9035

== ENCOUNTER → 2017-05-14 | Outpatient (CLI) | payer MEDICAID ==
[2017-05-14 17:05] LABS: HEMATOCRIT 25.6 % (37.9-51.0); HEMOGLOBIN 8.9 g/dL (13.5-17.0); HGB HCT DIFFERENCE 1.1; MEAN CORPUSCULAR HEMOGLOBIN 35.3 pg (27.0-33.4); MEAN CORPUSCULAR HGB CONC 34.9 g/dL (32.0-36.0); MEAN CORPUSCULAR VOLUME 101 fl (80-97); RED BLOOD COUNT 2.53 10^6/uL (4.35-5.55); RED CELL DISTRIBUTION WIDTH 14.7 % (11.5-14.0); WHITE BLOOD COUNT 3.7 10^3/uL (4.0-10.5)
[2017-05-14 17:09] LABS: APPEARANCE,URINE CLEAR; BILIRUBIN,URINE NEGATIVE (NEGATIVE); GLUCOSE, URINE NEGATIVE (NEGATIVE); KETONES,URINE NEGATIVE (NEGATIVE); LEUKOCYTE ESTERASE,URINE NEGATIVE (NEGATIVE); NITRITE,URINE NEGATIVE (NEGATIVE); PROTEIN,URINE NEGATIVE (NEGATIVE); UROBILINOGEN,URINE NEGATIVE mg/dL (<2.0)
[2017-05-14 17:16] LABS: ALANINE AMINOTRANSFERASE 28 U/L (21-72); ALBUMIN 2.8 g/dL (3.5-5.0); ALKALINE PHOSPHATASE 254 U/L (38-126); ANION GAP 8 (5-19); ASPARTATE AMINO TRANSFERASE 45 U/L (17-59); BILIRUBIN,DIRECT 2.1 mg/dL (0.0-0.4); BILIRUBIN,TOTAL 5.6 mg/dL (0.2-1.3); BLOOD UREA NITROGEN 19 mg/dL (7-20); CALCIUM 8.3 mg/dL (8.4-10.2); CARBON DIOXIDE 25 mmol/L (22-30); CHLORIDE 99 mmol/L (98-107); CREATININE RESULT 0.99 mg/dL (0.52-1.25); GLUCOSE 125 mg/dL (75-110); MAGNESIUM 1.7 mg/dL (1.6-2.3); PHOSPHORUS 3.8 mg/dL (2.5-4.5); POTASSIUM 4.2 mmol/L (3.6-5.0); TOTAL PROTEIN 7.1 g/dL (6.3-8.2)
== END ==
LOC: OD 16:19
PROVIDERS: ATTEND Internal Medicine Nephrology
DX: R31.9 Hematuria, unspecified (principal); E87.1 Hypo-osmolality and hyponatremia; R18.8 Other ascites
CPT/HCPCS: 36415; 80053; 81001; 83735; 84100; 85027

== ENCOUNTER → 2017-06-10 | Outpatient (CLI) | payer MEDICAID ==
[2017-06-10 11:24] LABS: HEMATOCRIT 27.7 % (37.9-51.0); HEMOGLOBIN 9.6 g/dL (13.5-17.0); HGB HCT DIFFERENCE 1.1; MEAN CORPUSCULAR HEMOGLOBIN 35.6 pg (27.0-33.4); MEAN CORPUSCULAR HGB CONC 34.6 g/dL (32.0-36.0); MEAN CORPUSCULAR VOLUME 103 fl (80-97); RED BLOOD COUNT 2.69 10^6/uL (4.35-5.55); RED CELL DISTRIBUTION WIDTH 14.7 % (11.5-14.0)
[2017-06-10 11:27] LABS: APPEARANCE,URINE CLEAR; BILIRUBIN,URINE NEGATIVE (NEGATIVE); GLUCOSE, URINE NEGATIVE (NEGATIVE); KETONES,URINE NEGATIVE (NEGATIVE); LEUKOCYTE ESTERASE,URINE NEGATIVE (NEGATIVE); NITRITE,URINE NEGATIVE (NEGATIVE); PROTEIN,URINE NEGATIVE (NEGATIVE); URINE SPECIFIC GRAVITY 1.013; UROBILINOGEN,URINE NEGATIVE mg/dL (<2.0)
[2017-06-10 11:42] LABS: ALANINE AMINOTRANSFERASE 35 U/L (21-72); ALBUMIN 2.7 g/dL (3.5-5.0); ALKALINE PHOSPHATASE 162 U/L (38-126); ANION GAP 8 (5-19); ASPARTATE AMINO TRANSFERASE 43 U/L (17-59); BILIRUBIN,DIRECT 1.4 mg/dL (0.0-0.4); BILIRUBIN,TOTAL 4.7 mg/dL (0.2-1.3); BLOOD UREA NITROGEN 18 mg/dL (7-20); CALCIUM 8.1 mg/dL (8.4-10.2); CARBON DIOXIDE 24 mmol/L (22-30); CHLORIDE 101 mmol/L (98-107); CREATININE RESULT 0.84 mg/dL (0.52-1.25); GLUCOSE 117 mg/dL (75-110); POTASSIUM 4.5 mmol/L (3.6-5.0); SODIUM 133.4 mmol/L (137-145); TOTAL PROTEIN 6.8 g/dL (6.3-8.2)
[2017-06-10 11:55] LABS: WHITE BLOOD COUNT 1.9 10^3/uL (4.0-10.5)
[2017-06-11 17:14] LABS: PATH REVIEW PATHOLOGIST REVIEWED
[2017-06-12 16:39] LABS: A/G RATIO 0.7 (0.7-1.7); ALBUMIN 2 2.6 g/dL (2.9-4.4); ALPHA-1-GLOBULIN 2 0.2 g/dL (0.0-0.4); GAMMA GLOBULIN 2.1 g/dL (0.4-1.8); PROTEIN TOTAL SERUM 6.1 g/dL (6.0-8.5)
== END ==
LOC: OD 10:46
PROVIDERS: ATTEND Physician Assistant Medical
DX: R31.9 Hematuria, unspecified (principal); D64.9 Anemia, unspecified; E87.1 Hypo-osmolality and hyponatremia; R18.8 Other ascites; K70.11 Alcoholic hepatitis with ascites
CPT/HCPCS: 36415; 80053; 81001; 82728; 83540; 83550; 84165; 85027

== ENCOUNTER → 2017-08-22 | Outpatient (CLI) | payer MEDICAID ==
[~2017-08-22] MED LIST changes: -ALBUMIN HUMAN 200 ML IV PRN; +ALBUMIN HUMAN 250 ML IV PRN
[2017-08-22 11:43] LABS: HEMATOCRIT 31.6 % (37.9-51.0); HEMOGLOBIN 11.3 g/dL (13.5-17.0); HGB HCT DIFFERENCE 2.3; MEAN CORPUSCULAR HEMOGLOBIN 35.9 pg (27.0-33.4); MEAN CORPUSCULAR HGB CONC 35.6 g/dL (32.0-36.0); MEAN CORPUSCULAR VOLUME 101 fl (80-97); PROTHROMBIN TIME 19.1 SEC (11.4-15.4); RED BLOOD COUNT 3.14 10^6/uL (4.35-5.55); RED CELL DISTRIBUTION WIDTH 14.4 % (11.5-14.0); WHITE BLOOD COUNT 2.7 10^3/uL (4.0-10.5)
[2017-08-22 11:44] LABS: PARTIAL THROMBOPLASTIN TIME 35.1 SEC (23.5-35.8)
[2017-08-22 11:52] LABS: ALANINE AMINOTRANSFERASE 33 U/L (21-72); ALBUMIN 3.1 g/dL (3.5-5.0); ALKALINE PHOSPHATASE 264 U/L (38-126); ANION GAP 10 (5-19); ASPARTATE AMINO TRANSFERASE 51 U/L (17-59); BILIRUBIN,DIRECT 1.8 mg/dL (0.0-0.4); BLOOD UREA NITROGEN 14 mg/dL (7-20); CALCIUM 8.5 mg/dL (8.4-10.2); CARBON DIOXIDE 24 mmol/L (22-30); CHLORIDE 102 mmol/L (98-107); GLUCOSE 155 mg/dL (75-110); TOTAL PROTEIN 7.3 g/dL (6.3-8.2)
[2017-08-22 15:25] VITALS: BP 104/65
--- NOTE | 2017-08-22 15:38 | RADIOLOGY REPORT (SQ) ---
EXAM DESCRIPTION: U/S ABDOMEN LIMITED W/O DOP COMPLETED DATE/TIME: 08/22/2017 2:13 pm REASON FOR STUDY: ASCITES COMPARISON: 05/09/2017, 05/08/2017 CT abdomen pelvis 05/08/2017 TECHNIQUE: Ultrasound of the abdomen all 4 quadrants was performed to search for ascites LIMITATIONS: None. FINDINGS: 4 quadrant abdominal ultrasound was performed. No significant ascites. No procedure was performed today IMPRESSION: No significant ascites. Paracentesis canceled TECHNICAL DOCUMENTATION: JOB ID: [id number] [employer]- All Rights Reserved
== END ==
LOC: EDSTATUS 08:08 → RAD 10:56
PROVIDERS: ATTEND Internal Medicine Gastroenterology
DX: K70.31 Alcoholic cirrhosis of liver with ascites (principal)
CPT/HCPCS: 36415; 76705; 80053; 85027; 85610; 85730; P9047

== ENCOUNTER → 2017-09-06 | Outpatient (CLI) | payer MEDICAID ==
[2017-09-06 17:30] LABS: HEMATOCRIT 30.9 % (37.9-51.0); HEMOGLOBIN 10.9 g/dL (13.5-17.0); HGB HCT DIFFERENCE 1.8; MEAN CORPUSCULAR HEMOGLOBIN 35.3 pg (27.0-33.4); MEAN CORPUSCULAR HGB CONC 35.4 g/dL (32.0-36.0); MEAN CORPUSCULAR VOLUME 100 fl (80-97); RED CELL DISTRIBUTION WIDTH 14.6 % (11.5-14.0); WHITE BLOOD COUNT 2.5 10^3/uL (4.0-10.5)
[2017-09-06 17:34] LABS: ANION GAP 9 (5-19); BLOOD UREA NITROGEN 13 mg/dL (7-20); CALCIUM 8.8 mg/dL (8.4-10.2); CARBON DIOXIDE 28 mmol/L (22-30); CHLORIDE 100 mmol/L (98-107); CREATININE RESULT 0.93 mg/dL (0.52-1.25); GLUCOSE 146 mg/dL (75-110); MAGNESIUM 1.9 mg/dL (1.6-2.3); PHOSPHORUS 3.4 mg/dL (2.5-4.5); POTASSIUM 4.3 mmol/L (3.6-5.0); SODIUM 137.2 mmol/L (137-145)
== END ==
LOC: OD 14:39
PROVIDERS: ATTEND Internal Medicine Nephrology
DX: E87.1 Hypo-osmolality and hyponatremia (principal); D64.9 Anemia, unspecified; K70.11 Alcoholic hepatitis with ascites
CPT/HCPCS: 36415; 80048; 83735; 84100; 84300; 85027

== ENCOUNTER → 2017-09-30 | Outpatient (CLI) | payer MEDICAID ==
--- NOTE | 2017-09-30 15:17 | RADIOLOGY REPORT (SQ) ---
EXAM DESCRIPTION: KUB/ABDOMEN (SINGLE VIEW) COMPLETED DATE/TIME: 09/30/2017 2:53 pm REASON FOR STUDY: BLOATING (R14.0) R14.0 ABDOMINAL DISTENSION (GASEOUS) COMPARISON: 11/27/2016 NUMBER OF VIEWS: One view. TECHNIQUE: Supine radiographic image of the abdomen acquired. LIMITATIONS: None. FINDINGS: BOWEL GAS PATTERN: Normal bowel gas pattern. No dilated loops. CALCIFICATIONS: No suspicious calcifications. SOFT TISSUES: No gross mass or suggestion of organomegaly. HARDWARE: None in the abdomen. BONES: No acute fracture. No worrisome bone lesions. OTHER: No other significant finding. IMPRESSION: NO RADIOGRAPHIC EVIDENCE FOR ACUTE ABDOMINAL DISEASE. TECHNICAL DOCUMENTATION: JOB ID: [id number] [employer]- All Rights Reserved
== END ==
LOC: RAD 14:33
PROVIDERS: ATTEND Physician Assistant Surgical
DX: R14.0 Abdominal distension (gaseous) (principal)
CPT/HCPCS: 74000

== ENCOUNTER 2017-10-29 12:05 | Day surgery (SDC) | payer MEDICAID ==
[2017-10-28 13:13] LABS: HEMATOCRIT 32.6 % (37.9-51.0); HEMOGLOBIN 11.7 g/dL (13.5-17.0); HGB HCT DIFFERENCE 2.5; MEAN CORPUSCULAR HEMOGLOBIN 34.9 pg (27.0-33.4); MEAN CORPUSCULAR HGB CONC 35.9 g/dL (32.0-36.0); MEAN CORPUSCULAR VOLUME 97 fl (80-97); RED BLOOD COUNT 3.34 10^6/uL (4.35-5.55); RED CELL DISTRIBUTION WIDTH 14.1 % (11.5-14.0)
[2017-10-29] MEDS ORDERED: NALOXONE HCL INJ/PF 0.4 MG/1 ML SDV ONE (15:50)
[2017-10-29] MEDS ORDERED: EPINEPHRINE INJ 1 MG/10 ML DISP.SYRIN ONE (15:51)
[2017-10-29] MEDS ORDERED: FLUMAZENIL INJ 0.5 MG/5 ML VIAL ONE (15:51)
[2017-10-29] MEDS ORDERED: GLUCAGON,HUMAN RECOMB 1 MG INJ ONE (15:51)
[2017-10-29] MEDS: MIDAZOLAM 2 MG/2 ML INJ ONE ×3 (18:02→18:24)
[2017-10-29] MEDS: FENTANYL CITRATE INJ/PF 100 MCG/2 ML AMPUL ONE ×2 (18:04→18:10)
--- NOTE | 2017-10-29 18:52 | Operative Report ---
Operative Report DATE OF SURGERY: 10/29/17 Operative Report: Pre-op history: History of sigmoid colon polyp with high-grade dysplasia, thrombocytopenia, and cirrhosis. Patient received 2 units of platelets within 2 hours of procedure. Post-op diagnosis: 1. 12 mm sessile distal sigmoid polyp 2. 2 separate 5-6 mm sigmoid polyps 3. Redundant colon Surgery: Colonoscopy with normal saline injection, polypectomy, endoclips application, and tattooing Medications: Versed 4mg, Fentanyl 100mcg IV push Tissue removed: Sigmoid colon polyp Procedure: After informed consent obtained from patient, conscious sedation was achieved. A digital rectal examination was performed and this was unremarkable. The colonoscope was inserted into the rectum and advanced to the cecum. The appendiceal orifice and the terminal ileum were both identified. The mucosa was examined into details as the colonoscope was slowly pulled out of the patient. The endoscope was retroflexed in the rectum. Patient tolerated the procedure well. Findings Cecum: Normal Ascending colon: Normal Transverse colon: Normal Descending colon: Normal Sigmoid colon: 12 mm polyp identified in the distal sigmoid colon. The polyp lifted well with normal saline injection and it was removed by hot polypectomy snare. 3 endoclips were applied to close the polypectomy site and the site was also injected with Iranian ink Rectum: Normal except for internal hemorrhoids Plan: Await pathology. Follow-up at [facility] liver transplant [facility] OPERATION: .
[2017-10-29 19:36] VITALS: BP 107/58
== END 2017-10-29 19:40 | disposition home or self-care (01) ==
LOC: END 12:05
PROVIDERS: ATTEND Internal Medicine Gastroenterology
PROC: 0DBN8ZX Excision of Sigmoid Colon, Via Natural or Artificial Opening Endoscopic, Diagnostic (ICD-10-PCS; principal; 2017-10-29 16:15)
PROC: 3E0H8GC Introduction of Other Therapeutic Substance into Lower GI, Via Natural or Artificial Opening Endoscopic (ICD-10-PCS; 2017-10-29 16:15)
DX: Z12.11 Encounter for screening for malignant neoplasm of colon (principal); C18.7 Malignant neoplasm of sigmoid colon; D12.5 Benign neoplasm of sigmoid colon; K74.60 Unspecified cirrhosis of liver; R18.8 Other ascites; K64.8 Other hemorrhoids; D69.6 Thrombocytopenia, unspecified
CPT/HCPCS: 45382; 45385; 45381; 86900; 86901; 36415; 36430; 88305 ×2; P9035; J2250; J3010; J0171; J1610; J2310; J3490

== ENCOUNTER → 2018-07-10 | Outpatient (CLI) | payer MEDICAID ==
[2018-07-10 09:23] LABS: HEMATOCRIT 34.8 % (37.9-51.0); HEMOGLOBIN 12.1 g/dL (13.5-17.0); MEAN CORPUSCULAR HGB CONC 34.8 g/dL (32.0-36.0); MEAN CORPUSCULAR VOLUME 98 fl (80-97); RED BLOOD COUNT 3.56 10^6/uL (4.35-5.55); WHITE BLOOD COUNT 1.8 10^3/uL (4.0-10.5)
[2018-07-10 09:35] LABS: ALANINE AMINOTRANSFERASE 26 U/L (21-72); ALBUMIN 3.1 g/dL (3.5-5.0); ALKALINE PHOSPHATASE 217 U/L (38-126); ANION GAP 10 (5-19); ASPARTATE AMINO TRANSFERASE 48 U/L (17-59); BILIRUBIN,TOTAL 3.7 mg/dL (0.2-1.3); BLOOD UREA NITROGEN 10 mg/dL (7-20); CALCIUM 8.6 mg/dL (8.4-10.2); CARBON DIOXIDE 26 mmol/L (22-30); CHLORIDE 106 mmol/L (98-107); CHOLESTEROL 94.22 mg/dL (0-200); GAMMA-GLUTAMYL TRANSFERASE 101 U/L (8-78); GLUCOSE 149 mg/dL (75-110); POTASSIUM 4.5 mmol/L (3.6-5.0); SODIUM 142.3 mmol/L (137-145); TRIGLYCERIDES 63 mg/dL (<150); URIC ACID 5.2 mg/dL (3.5-8.5)
[2018-07-10 09:41] LABS: INTERNATIONAL RATION (INR) 1.44; PROTHROMBIN TIME 18.3 SEC (11.4-15.4)
[2018-07-10 09:52] LABS: DIRECT LDL < 30 mg/dL (<100)
[2018-07-10 10:52] LABS: PLATELET COUNT 46 10^3/uL (150-450)
[2018-07-10 10:58] LABS: ABSOLUTE LYMPHOCYTES# (MANUAL) 0.3 10^3/uL (0.5-4.7); ABSOLUTE MONOCYTES # (MANUAL) 0.2 10^3/uL (0.1-1.4); ABSOLUTE NEUTROPHILS# (MANUAL) 1.2 10^3/uL (1.7-8.2); BASOPHILS % (MANUAL) 2 % (0-2); EOSINOPHILS % (MANUAL) 2 % (0-6); LYMPHOCYTES % (MANUAL) 15 % (13-45); MONOCYTES % (MANUAL) 12 % (3-13); SEGMENTED NEUTROPHILS % (MAN) 69 % (42-78); TOTAL CELLS COUNTED 100
[2018-07-10 11:00] LABS: ANISOCYTOSIS SLIGHT; HYPOCHROMASIA SLIGHT; PLATELET COMMENT DECREASED; POLYCHROMASIA SLIGHT
== END ==
LOC: CCC 08:36
DX: K74.60 Unspecified cirrhosis of liver (principal); I10 Essential (primary) hypertension; K72.90 Hepatic failure, unspecified without coma
CPT/HCPCS: 36415; 80053; 80061; 82140; 82977; 83036; 84550; 85025; 85610

== ENCOUNTER → 2018-10-09 | Outpatient (CLI) | payer OTHER ==
[2018-10-09 13:09] LABS: ABSOLUTE EOSINOPHILS # (AUTO) 0.1 10^3/uL (0.0-0.6); ABSOLUTE LYMPHOCYTES (AUTO) 0.4 10^3/uL (0.5-4.7); ABSOLUTE MONOCYTES (AUTO) 0.2 10^3/uL (0.1-1.4); ABSOLUTE NEUT (AUTO) 1.8 10^3/uL (1.7-8.2); BASOPHILS % (AUTO) 1.1 % (0-2); EOSINOPHILS % (AUTO) 3.5 % (0-6); HEMATOCRIT 36.6 % (37.9-51.0); LYMPHOCYTES % (AUTO) 16.9 % (13-45); MEAN CORPUSCULAR HEMOGLOBIN 33.6 pg (27.0-33.4); MEAN CORPUSCULAR HGB CONC 35.5 g/dL (32.0-36.0); MEAN CORPUSCULAR VOLUME 95 fl (80-97); MONOCYTES % (AUTO) 9.5 % (3-13); RED BLOOD COUNT 3.86 10^6/uL (4.35-5.55); RED CELL DISTRIBUTION WIDTH 14.7 % (11.5-14.0); TOTAL CELLS COUNTED % (AUTO) 100 %; WHITE BLOOD COUNT 2.6 10^3/uL (4.0-10.5)
[2018-10-09 13:14] LABS: INTERNATIONAL RATION (INR) 1.28; PROTHROMBIN TIME 16.6 SEC (11.4-15.4)
[2018-10-09 13:26] LABS: ALANINE AMINOTRANSFERASE 25 U/L (21-72); ALBUMIN 3.4 g/dL (3.5-5.0); ALKALINE PHOSPHATASE 248 U/L (38-126); ANION GAP 10 (5-19); ASPARTATE AMINO TRANSFERASE 47 U/L (17-59); BILIRUBIN,DIRECT 1.4 mg/dL (0.0-0.4); BILIRUBIN,TOTAL 3.9 mg/dL (0.2-1.3); BLOOD UREA NITROGEN 9 mg/dL (7-20); CALCIUM 8.8 mg/dL (8.4-10.2); CARBON DIOXIDE 28 mmol/L (22-30); CHLORIDE 104 mmol/L (98-107); GLUCOSE 86 mg/dL (75-110); POTASSIUM 3.7 mmol/L (3.6-5.0); SODIUM 142.2 mmol/L (137-145); TOTAL PROTEIN 7.4 g/dL (6.3-8.2)
[2018-10-09 13:30] LABS: PLATELET COUNT 54 10^3/uL (150-450)
== END ==
LOC: CCC 12:42
DX: K74.60 Unspecified cirrhosis of liver (principal); D61.818 Other pancytopenia
CPT/HCPCS: 36415; 80048; 80076; 82140; 83036; 83735; 85025; 85610

== ENCOUNTER → 2018-11-10 | Outpatient (CLI) | payer OTHER ==
[2018-11-10 13:30] LABS: ABSOLUTE EOSINOPHILS # (AUTO) 0.1 10^3/uL (0.0-0.6); ABSOLUTE LYMPHOCYTES (AUTO) 0.5 10^3/uL (0.5-4.7); ABSOLUTE MONOCYTES (AUTO) 0.3 10^3/uL (0.1-1.4); ABSOLUTE NEUT (AUTO) 1.7 10^3/uL (1.7-8.2); BASOPHILS % (AUTO) 0.8 % (0-2); EOSINOPHILS % (AUTO) 4.6 % (0-6); HEMATOCRIT 38.3 % (37.9-51.0); HEMOGLOBIN 13.6 g/dL (13.5-17.0); LYMPHOCYTES % (AUTO) 19.4 % (13-45); MEAN CORPUSCULAR HEMOGLOBIN 33.5 pg (27.0-33.4); MEAN CORPUSCULAR HGB CONC 35.6 g/dL (32.0-36.0); MEAN CORPUSCULAR VOLUME 94 fl (80-97); RED BLOOD COUNT 4.07 10^6/uL (4.35-5.55); RED CELL DISTRIBUTION WIDTH 15.3 % (11.5-14.0); SEGMENTED NEUTROPHILS % (AUTO) 65.2 % (42-78); TOTAL CELLS COUNTED % (AUTO) 100 %; WHITE BLOOD COUNT 2.7 10^3/uL (4.0-10.5)
[2018-11-10 13:31] LABS: INTERNATIONAL RATION (INR) 1.33; PROTHROMBIN TIME 17.1 SEC (11.4-15.4)
[2018-11-10 13:46] LABS: ALANINE AMINOTRANSFERASE 32 U/L (21-72); ALBUMIN 3.8 g/dL (3.5-5.0); ALKALINE PHOSPHATASE 239 U/L (38-126); ANION GAP 11 (5-19); ASPARTATE AMINO TRANSFERASE 52 U/L (17-59); BILIRUBIN,DIRECT 0.9 mg/dL (0.0-0.4); BILIRUBIN,TOTAL 3.7 mg/dL (0.2-1.3); BLOOD UREA NITROGEN 10 mg/dL (7-20); CALCIUM 9.1 mg/dL (8.4-10.2); CARBON DIOXIDE 27 mmol/L (22-30); CHLORIDE 106 mmol/L (98-107); GLUCOSE 84 mg/dL (75-110); POTASSIUM 3.6 mmol/L (3.6-5.0); SODIUM 144.4 mmol/L (137-145); TOTAL PROTEIN 7.9 g/dL (6.3-8.2)
[2018-11-10 13:50] LABS: PLATELET COUNT 59 10^3/uL (150-450)
== END ==
LOC: LAB 12:59
PROVIDERS: ATTEND Nurse Practitioner
DX: K70.31 Alcoholic cirrhosis of liver with ascites (principal); Z79.899 Other long term (current) drug therapy
CPT/HCPCS: 36415; 80053; 82140; 84443; 85025; 85610

== ENCOUNTER → 2018-11-11 | Outpatient (CLI) | payer OTHER ==
--- NOTE | 2018-11-11 12:34 | RADIOLOGY REPORT (SQ) ---
EXAM DESCRIPTION: U/S ABDOMEN LIMITED W/O DOP COMPLETED DATE/TIME: 11/11/2018 10:41 am REASON FOR STUDY: K70.31 ALCOHOLIC CIRRHOSIS OF LIVER WITH ASCITES K70.31 ALCOHOLIC CIRRHOSIS OF LI MARINA WITH ASCITES COMPARISON: 10/09/2017 TECHNIQUE: Dynamic and static grayscale images acquired of the abdomen and recorded on PACS. Additio nal selected color Doppler and spectral images recorded. LIMITATIONS: None. FINDINGS: PANCREAS: Not visualized due to overlying bowel gas. LIVER: As on the prior examination, diffuse increased coarsened heterogenous echotexture to the live r parenchyma and nodular contour, findings are likely consistent with the history of cirrhosis. The liver measures 17.2 cm in length. LIVER VASCULATURE: Normal directional flow of the main portal vein and hepatic veins. GALLBLADDER: No stones. The gallbladder wall measures 2.0 mm, normal wall thickness. No pericholecys tic fluid. ULTRASOUND-DETECTED TEE'S SIGN: Negative. INTRAHEPATIC DUCTS AND COMMON DUCT: CBD measures 4.0 mm in diameter, normal. The intrahepatic ducts normal caliber. No filling defects. INFERIOR VENA CAVA: Normal flow. AORTA: Limited visualization due to bowel gas. The proximal abdominal aorta measures 2.8 cm in diam eter, mid measures 2.2 cm in diameter, and distal measures 2.0 cm in diameter. RIGHT KIDNEY: The right kidney measures 9.8 cm in length, normal size. Normal echogenicity. No solid or suspicious masses. No hydronephrosis. No calcifications. PERITONEAL AND RIGHT PLEURAL SPACE: No ascites or effusions. OTHER: No other significant findings. IMPRESSION: 1. Stable appearance to the liver with nodular contour and diffuse increased coarsened heterogenous echotexture, likely consistent with the patient's history of cirrhosis, since the examin ation dated 10/09/2017. 2. The pancreas was not visualized due to overlying bowel gas. 3. Limited visualization of the abdominal aorta due to bowel gas. TECHNICAL DOCUMENTATION: JOB ID: [id number]- All Rights Reserved Reading location - IP/workstation name: [email or web address]
== END ==
LOC: RAD 09:06
PROVIDERS: ATTEND Internal Medicine Gastroenterology
DX: K70.31 Alcoholic cirrhosis of liver with ascites (principal)
CPT/HCPCS: 76705

== ENCOUNTER → 2019-01-12 | Outpatient (CLI) | payer OTHER ==
--- NOTE | 2019-01-12 15:23 | RADIOLOGY REPORT (SQ) ---
EXAM DESCRIPTION: CT ABD/PELVIS WITH IV ORAL COMPLETED DATE/TIME: 01/12/2019 3:03 pm REASON FOR STUDY: ALCOHOLIC CIRRHOSIS OF LIVER (K70.31), MALIGNANT NEOPLASM OF SIGMOID COLON K70.31 ALCOHOLIC CIRRHOSIS OF LIVER WITH ASCITES COMPARISON: None. TECHNIQUE: CT scan of the abdomen and pelvis performed with intravenous and oral contrast using floresita milana scanning technique with dynamic intravenous contrast injection. Images reviewed with lung, soft t issue, and bone windows. Reconstructed coronal and sagittal MPR images reviewed. Delayed images for e valuation of the urinary system also acquired. All images stored on PACS. All CT scanners at this facility use dose modulation, iterative reconstruction, and/or weight based d osing when appropriate to reduce radiation dose to as low as reasonably achievable (ALARA). [facility]: Dose Right [facility]: CareDose [facility]: Dose Right [facility]: Teradose 4D [facility]: [employer] CONTRAST TYPE AND DOSE: contrast/concentration: Isovue 350.00 mg/ml; Total Contrast Delivered: 100.0 ml; Total Saline Delivered: 72.0 ml RENAL FUNCTION: Creatinine 1.0 RADIATION DOSE: CT Rad equipment meets quality standard of care and radiation dose reduction techniq ues were employed. CTDIvol: 20.2 - 20.3 mGy. DLP: 2130 mGy-cm. . LIMITATIONS: None. FINDINGS: LOWER CHEST: Gynecomastia. No nodules or infiltrates. LIVER: Sub capsular nodularity. Small size. SPLEEN: Enlarged. No focal lesions. PANCREAS: No masses. No significant calcifications. No adjacent inflammation or peripancreatic fluid collections. Pancreatic duct not dilated. GALLBLADDER: No identified stones by CT criteria. No inflammatory changes to suggest cholecystitis. ADRENAL GLANDS: No significant masses or asymmetry. RIGHT KIDNEY AND URETER: No solid masses. No significant calcifications. No hydronephrosis or hyd roureter. LEFT KIDNEY AND URETER: No solid masses. No significant calcifications. No hydronephrosis or hydr oureter. AORTA AND VESSELS: No aneurysm. Esophageal varices. RETROPERITONEUM: No retroperitoneal adenopathy, hemorrhage or masses. BOWEL AND PERITONEAL CAVITY: Mesenteric inflammation within splenic flexure and within a segment of s igmoid colon containing diverticula. No obstruction. No ascites or free air. APPENDIX: Normal. PELVIS: No significant masses. Normal bladder. No free fluid. ABDOMINAL WALL: No masses. No hernias. BONES: Nothing acute. OTHER: No other significant finding. IMPRESSION: 1. Diverticulitis involving separate segments of the sigmoid colon and splenic flexure. 2. Cirrhosis. Splenomegaly. No ascites. TECHNICAL DOCUMENTATION: JOB ID: [id number] Quality ID # [id number]: Final reports with documentation of one or more dose reduction techniques (e.g., Au tomated exposure control, adjustment of the mA and/or kV according to patient size, use of iterative reconstruction technique) 2010 [employer]- All Rights Reserved Reading location - IP/workstation name: [email or web address]
== END ==
LOC: RAD 12:13
PROVIDERS: ATTEND Internal Medicine Gastroenterology
DX: K70.31 Alcoholic cirrhosis of liver with ascites (principal); C18.7 Malignant neoplasm of sigmoid colon; K57.32 Diverticulitis of large intestine without perforation or abscess without bleeding; R10.32 Left lower quadrant pain; R16.1 Splenomegaly, not elsewhere classified
CPT/HCPCS: 74177; 82565

== ENCOUNTER → 2019-02-11 | Outpatient (CLI) | payer OTHER ==
[2019-02-11 12:00] LABS: HEMATOCRIT 37.8 % (37.9-51.0); HEMOGLOBIN 13.5 g/dL (13.5-17.0); MEAN CORPUSCULAR HGB CONC 35.7 g/dL (32.0-36.0); MEAN CORPUSCULAR VOLUME 95 fl (80-97); RED BLOOD COUNT 3.97 10^6/uL (4.35-5.55); RED CELL DISTRIBUTION WIDTH 15.8 % (11.5-14.0); WHITE BLOOD COUNT 2.6 10^3/uL (4.0-10.5)
[2019-02-11 12:05] LABS: INTERNATIONAL RATION (INR) 1.24; PROTHROMBIN TIME 16.2 SEC (11.4-15.4)
[2019-02-11 12:25] LABS: ALANINE AMINOTRANSFERASE 35 U/L (21-72); ALBUMIN 3.9 g/dL (3.5-5.0); ALKALINE PHOSPHATASE 288 U/L (38-126); ASPARTATE AMINO TRANSFERASE 49 U/L (17-59); BILIRUBIN,DIRECT 0.9 mg/dL (0.0-0.4); BILIRUBIN,TOTAL 3.8 mg/dL (0.2-1.3); BLOOD UREA NITROGEN 13 mg/dL (7-20); CALCIUM 9.3 mg/dL (8.4-10.2); CARBON DIOXIDE 29 mmol/L (22-30); CHLORIDE 106 mmol/L (98-107); CHOLESTEROL 115.73 mg/dL (0-200); GLUCOSE 132 mg/dL (75-110); POTASSIUM 3.9 mmol/L (3.6-5.0); SODIUM 139.3 mmol/L (137-145); TOTAL PROTEIN 7.6 g/dL (6.3-8.2); TRIGLYCERIDES 88 mg/dL (<150)
[2019-02-11 12:31] LABS: PLATELET COUNT 50 10^3/uL (150-450)
[2019-02-11 12:36] LABS: DIRECT LDL 39 mg/dL (<100)
[2019-02-11 13:22] LABS: ANION GAP 4 (5-19)
== END ==
LOC: LAB 11:32
PROVIDERS: ATTEND Nurse Practitioner
DX: K70.31 Alcoholic cirrhosis of liver with ascites (principal); Z79.899 Other long term (current) drug therapy
CPT/HCPCS: 36415; 80053; 80061; 82306; 82607; 83036; 84443; 85027; 85610

== ENCOUNTER 2019-06-17 13:17 | Emergency (ER) | payer MEDICARE, OTHER ==
[2019-06-17] MEDS ORDERED: MORPHINE SULFATE 10 MG/ML INJ IV ONE (14:14)
--- NOTE | 2019-06-17 14:28 | ER Document Report ---
ED Medical Screen (RME) - General Chief Complaint: Abdominal Pain Stated Complaint: ABDOMINAL PAIN Time Seen by Provider: 06/17/19 14:09 Primary Care Provider: FLORY GRAY NP [Primary Care Provider] - Follow up as needed Mode of Arrival: Ambulatory Information source: Patient Notes: Patient is a 58-year-old male presented to the emergency department with pain to his left lower quadrant. Patient reports pain has been intermittent over the last 3 to 4 days. He denies any nausea, vomiting or fever. He does report diarrhea but states that he takes lactulose. Patient does have a history of a hernia with mesh repair. Exam: Tenderness to palpation to the left lower quadrant. I have greeted and performed a rapid initial assessment of this patient. A comprehensive ED assessment and evaluation of the patient, analysis of test results and completion of the medical decision making process will be conducted by additional ED providers. I have specifically instructed the patient or family members with the patient to immediately return to any nursing staff should anything change in the patient's condition or with their chief complaint. This medical record was dictated with voice recognizing software. There may be grammatical, syntax errors that are unintended. TRAVEL OUTSIDE OF THE [place] IN LAST 30 DAYS: No - Related Data Allergies/Adverse Reactions: No Known Allergies Allergy (Verified 06/17/19 13:34) Past Medical History - Social History Frequency of alcohol use: None Drug Abuse: None - Past Medical History Cardiac Medical History: Denies: Hx Coronary Artery Disease, Hx Heart Attack, Hx Hypertension Pulmonary Medical History: Denies: Hx Asthma, Hx Bronchitis, Hx COPD, Hx Pneumonia Neurological Medical History: Denies: Hx Cerebrovascular Accident, Hx Seizures Renal/ Medical History: Denies: Hx Peritoneal Dialysis GI Medical History: Reports: Hx Cirrhosis - With ascites Musculoskeltal Medical History: Reports Hx Arthritis, Reports Hx Musculoskeletal Trauma - Fractured right ankle left knee and left rotator cuff injury Traumatic Medical History: Reports: Hx Fractures Past Surgical History: Reports: Hx Abdominal Surgery - multiple paracentesis fo, Hx Herniorrhaphy, Hx Orthopedic Surgery - Repair of left knee fractured right ankle fracture, Hx Umbilical Hernia - Immunizations Hx Diphtheria, Pertussis, Tetanus Vaccination: No Influenza Administration Date for 09/2017 - 01/2018 Season: 10/02/17 Physical Exam - Vital signs Vitals: Temp Pulse Resp BP Pulse Ox 99.0 F 86 18 140/66 H 96 06/17/19 13:41 06/17/19 13:41 06/17/19 13:41 06/17/19 13:41 06/17/19 13:41 Course - Vital Signs Vital signs: Temp Pulse Resp BP Pulse Ox 99.0 F 86 18 140/66 H 96 06/17/19 13:41 06/17/19 13:41 06/17/19 13:41 06/17/19 13:41 06/17/19 13:41 Doctor's Discharge - Discharge Referrals: FLORY GRAY NP [Primary Care Provider] - Follow up as needed
[2019-06-17 15:11] LABS: ABSOLUTE LYMPHOCYTES (AUTO) 0.2 10^3/uL (0.5-4.7); ABSOLUTE MONOCYTES (AUTO) 0.2 10^3/uL (0.1-1.4); ABSOLUTE NEUT (AUTO) 1.7 10^3/uL (1.7-8.2); BASOPHILS % (AUTO) 0.4 % (0-2); EOSINOPHILS % (AUTO) 1.9 % (0-6); HEMATOCRIT 37.1 % (37.9-51.0); HEMOGLOBIN 12.9 g/dL (13.5-17.0); LYMPHOCYTES % (AUTO) 9.4 % (13-45); MEAN CORPUSCULAR HEMOGLOBIN 33.7 pg (27.0-33.4); MEAN CORPUSCULAR HGB CONC 34.8 g/dL (32.0-36.0); MEAN CORPUSCULAR VOLUME 97 fl (80-97); MONOCYTES % (AUTO) 10.8 % (3-13); RED BLOOD COUNT 3.82 10^6/uL (4.35-5.55); RED CELL DISTRIBUTION WIDTH 15.4 % (11.5-14.0); SEGMENTED NEUTROPHILS % (AUTO) 77.5 % (42-78); TOTAL CELLS COUNTED % (AUTO) 100 %; WHITE BLOOD COUNT 2.1 10^3/uL (4.0-10.5)
[2019-06-17 15:47] LABS: PLATELET COUNT 52 10^3/uL (150-450)
[2019-06-17 15:53] LABS: APPEARANCE,URINE SLIGHTLY-CLOUDY; BILIRUBIN,URINE NEGATIVE (NEGATIVE); COLOR,URINE YELLOW; GLUCOSE, URINE NEGATIVE (NEGATIVE); KETONES,URINE NEGATIVE (NEGATIVE); LEUKOCYTE ESTERASE,URINE NEGATIVE (NEGATIVE); NITRITE,URINE NEGATIVE (NEGATIVE); PROTEIN,URINE NEGATIVE (NEGATIVE); UROBILINOGEN,URINE NEGATIVE mg/dL (<2.0)
[2019-06-17 17:31] LABS: ALANINE AMINOTRANSFERASE 37 U/L (21-72); ALBUMIN 3.6 g/dL (3.5-5.0); ALKALINE PHOSPHATASE 208 U/L (38-126); ANION GAP 7 (5-19); ASPARTATE AMINO TRANSFERASE 58 U/L (17-59); BILIRUBIN,DIRECT 1.2 mg/dL (0.0-0.4); BILIRUBIN,TOTAL 5.6 mg/dL (0.2-1.3); BLOOD UREA NITROGEN 16 mg/dL (7-20); CALCIUM 8.9 mg/dL (8.4-10.2); CARBON DIOXIDE 28 mmol/L (22-30); CHLORIDE 103 mmol/L (98-107); GLUCOSE 93 mg/dL (75-110); LIPASE 120.5 U/L (23-300); POTASSIUM 4.3 mmol/L (3.6-5.0); SODIUM 137.8 mmol/L (137-145); TOTAL PROTEIN 7.4 g/dL (6.3-8.2)
[2019-06-17 19:03] VITALS: BP 122/68
[2019-06-17] MEDS ORDERED: ONDANSETRON HCL INJ/PF 4 MG/2 ML SDV IV ONE (19:31)
[2019-06-17] MEDS ORDERED: FENTANYL CITRATE INJ/PF 100 MCG/2 ML AMPUL IV ONE (19:31)
--- NOTE | 2019-06-17 19:31 | ER Document Report ---
ED General - General Chief Complaint: Abdominal Pain Stated Complaint: ABDOMINAL PAIN Time Seen by Provider: 06/17/19 14:09 Primary Care Provider: FLORY GRAY NP [Primary Care Provider] - Follow up in 3-5 days Mode of Arrival: Ambulatory Notes: Patient is a 58-year-old male with alcoholic cirrhosis that presents to the emergency department for chief complaint of abdominal pain. Patient states the pain started 3 days ago, and has been persistent and seemingly worsening over time. The pain is located left lower quadrant of the abdomen, and they currently rate the pain as a 6 out of 10, and described as aching, and constant. They have had associated nausea, but no vomiting, denies any fevers, chills, night sweats, chest pain, shortness of breath or difficulty breathing. Denies any associated constipation or diarrhea. His abdomen is just tender he states in the left lower quadrant, not diffuse tenderness. Past Medical History: Alcoholic cirrhosis Past Surgical History: Hernia repair Social History: Denies tobacco, alcohol or illicit drug use, he is a recovered alcoholic, quit 3 years ago Family History: Reviewed and noncontributory for presenting illness Allergies: Reviewed, see documented allergy list. REVIEW OF SYSTEMS: Other than noted above, the 12 point review of systems was reviewed with the patient and were negative, all pertinent findings are included in the HPI. PHYSICAL EXAMINATION: Vital signs reviewed, nursing noted reviewed. GENERAL: Well-appearing, well-nourished and appears uncomfortable HEAD: Atraumatic, normocephalic. EYES: Eyes appear normal, extraocular movements intact, sclera anicteric, conjunctiva are normal. ENT: nares patent, oropharynx clear without exudates. Moist mucous membranes. NECK: Normal range of motion, supple without lymphadenopathy LUNGS: Breath sounds clear to auscultation bilaterally and equal. No wheezes rales or rhonchi. HEART: Regular rate and rhythm without murmurs ABDOMEN: Soft, distended, with positive fluid wave, tenderness only noted in the left lower quadrant focally normal bowel sounds, No rebound, guarding, or rigidity. No masses appreciated. EXTREMITIES: Nontender, good range of motion, no pitting or edema. NEUROLOGICAL: No focal neurological deficits. Moves all extremities spon taneously Motor and sensory grossly intact on exam. PSYCH: Normal mood, normal affect. SKIN: Warm, Dry, normal turgor, no rashes or lesions noted on exposed skin TRAVEL OUTSIDE OF THE [place] IN LAST 30 DAYS: No - Related Data Allergies/Adverse Reactions: No Known Allergies Allergy (Verified 06/17/19 13:34) Past Medical History - General Information source: Patient - Social History Smoking Status: Never Smoker Frequency of alcohol use: None Drug Abuse: None Family History: Arthritis, CAD, CVA, Hyperlipidemia, Hypertension, Other Patient has suicidal ideation: No Patient has homicidal ideation: No - Past Medical History Cardiac Medical History: Denies: Hx Coronary Artery Disease, Hx Heart Attack, Hx Hypertension Pulmonary Medical History: Denies: Hx Asthma, Hx Bronchitis, Hx COPD, Hx Pneumonia Neurological Medical History: Denies: Hx Cerebrovascular Accident, Hx Seizures Renal/ Medical History: Denies: Hx Peritoneal Dialysis GI Medical History: Reports: Hx Cirrhosis - With ascites Musculoskeletal Medical History: Reports Hx Arthritis, Reports Hx Musculoskeletal Trauma - Fractured right ankle left knee and left rotator cuff injury Traumatic Medical History: Reports: Hx Fractures Past Surgical History: Reports: Hx Abdominal Surgery - multiple paracentesis fo, Hx Herniorrhaphy, Hx Orthopedic Surgery - Repair of left knee fractured right ankle fracture, Hx Umbilical Hernia - Immunizations Hx Diphtheria, Pertussis, Tetanus Vaccination: No Hx Pneumococcal Vaccination: 10/02/17 Physical Exam - Vital signs Vitals: Temp Pulse Resp BP Pulse Ox 99.0 F 86 18 140/66 H 96 06/17/19 13:41 06/17/19 13:41 06/17/19 13:41 06/17/19 13:41 06/17/19 13:41 Course - Re-evaluation Re-evalutation: Patient seen and examined vital signs reviewed. Laboratory data and/or imaging were ordered as appropriate for the patient's presenting symptoms and complaint, with consideration of any critical or life threatening conditions that may be associated with their obtained history and exam as noted above. Patient was treated with Zofran, and morphine Results were reviewed when available and demonstrated pancytopenia, stable from prior labs, secondary to the patient's chronic cirrhosis, bilirubin at baseline as well, CT of the abdomen and pelvis, did not demonstrate any acute findings The patient was re-evaluated and was stable, still having some pain in the left lower quadrant, is possible this is early diverticulitis, that is not showing up on CT imaging, will start the patient on Augmentin and Flagyl and given a prescription for tramadol to take for pain if needed, he is advised to follow-up with his primary care physician. Results were discussed with the patient at this point, after careful consideration I feel that that patient can be discharged from the emergency department, the patient was educated treatments and reasons to return to the emergency department based on their presumed diagnosis as noted above, they were advised to followup with a primary care physician in 2-3 days. Patient was agreeable to plan of care. *Note is created using voice recognition software and may contain spelling, syntax or grammatical errors. Laboratory 06/17/19 06/17/19 06/17/19 14:49 14:49 14:49 WBC 2.1 L RBC 3.82 L Hgb 12.9 L Hct 37.1 L MCV 97 MCH 33.7 H MCHC 34.8 RDW 15.4 H Plt Count 52 L Seg Neutrophils % 77.5 Lymphocytes % 9.4 L Monocytes % 10.8 Eosinophils % 1.9 Basophils % 0.4 Absolute Neutrophils 1.7 Absolute Lymphocytes 0.2 L Absolute Monocytes 0.2 Absolute Eosinophils 0.0 Absolute Basophils 0.0 Sodium Cancelled Potassium Cancelled Chloride Cancelled Carbon Dioxide Cancelled Anion Gap Cancelled BUN Cancelled Creatinine Cancelled Est GFR ( Amer) Cancelled Est GFR (Non-Af Amer) Cancelled Glucose Cancelled Calcium Cancelled Total Bilirubin Cancelled Direct Bilirubin Cancelled Neonat Total Bilirubin Cancelled Neonat Direct Bilirubin Cancelled Neonat Indirect Bili Cancelled AST Cancelled ALT Cancelled Alkaline Phosphatase Cancelled Total Protein Cancelled Albumin Cancelled Lipase Cancelled Urine Color YELLOW Urine Appearance SLIGHTLY-CLOUDY Urine pH 7.0 Ur Specific Combs 1.010 Urine Protein NEGATIVE Urine Glucose (UA) NEGATIVE Urine Ketones NEGATIVE Urine Blood NEGATIVE Urine Nitrite NEGATIVE Urine Bilirubin NEGATIVE Urine Urobilinogen NEGATIVE Ur Leukocyte Esterase NEGATIVE Urine WBC (Auto) 1 Urine RBC (Auto) 1 Squamous Epi Cells Auto <1 Urine Mucus (Auto) RARE Urine Ascorbic Acid NEGATIVE 06/17/19 15:54 WBC RBC Hgb Hct MCV MCH MCHC RDW Plt Count Seg Neutrophils % Lymphocytes % Monocytes % Eosinophils % Basophils % Absolute Neutrophils Absolute Lymphocytes Absolute Monocytes Absolute Eosinophils Absolute Basophils Sodium 137.8 Potassium 4.3 Chloride 103 Carbon Dioxide 28 Anion Gap 7 BUN 16 Creatinine 0.88 Est GFR ( Amer) > 60 Est GFR (Non-Af Amer) > 60 Glucose 93 Calcium 8.9 Total Bilirubin 5.6 H Direct Bilirubin 1.2 H Neonat Total Bilirubin Not Reportable Neonat Direct Bilirubin Not Reportable Neonat Indirect Bili Not Reportable AST 58 ALT 37 Alkaline Phosphatase 208 H Total Protein 7.4 Albumin 3.6 Lipase 120.5 Urine Color Urine Appearance Urine pH Ur Specific Combs Urine Protein Urine Glucose (UA) Urine Ketones Urine Blood Urine Nitrite Urine Bilirubin Urine Urobilinogen Ur Leukocyte Esterase Urine WBC (Auto) Urine RBC (Auto) Squamous Epi Cells Auto Urine Mucus (Auto) Urine Ascorbic Acid Abdomen/Pelvis CT 06/17/19 19:20 IMPRESSION: No acute abnormality within the abdomen or pelvis. 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 Splenomegaly with gastric and splenic varices with splenorenal shunt, indicating portal hypertension. TECHNICAL DOCUMENTATION: Quality ID # [id number]: Final reports with documentation of one or more dose reduction techniques (e.g., Automated exposure control, adjustment of the mA and/or kV according to patient size, use of iterative reconstruction technique) copyright 2011 [employer]- All Rights Reserved - Vital Signs Vital signs: Temp Pulse Resp BP Pulse Ox 98.5 F 67 16 122/68 98 06/17/19 19:00 06/17/19 19:00 06/17/19 19:00 06/17/19 19:00 06/17/19 19:00 - Laboratory Result Diagrams: 06/17/19 14:49 06/17/19 15:54 Laboratory results interpreted by me: 06/17/19 06/17/19 14:49 15:54 WBC 2.1 L RBC 3.82 L Hgb 12.9 L Hct 37.1 L MCH 33.7 H RDW 15.4 H Plt Count 52 L Lymphocytes % 9.4 L Absolute Lymphocytes 0.2 L Total Bilirubin 5.6 H Direct Bilirubin 1.2 H Alkaline Phosphatase 208 H Discharge - Discharge Clinical Impression: LLQ abdominal pain Condition: Stable Disposition: HOME, SELF-CARE Instructions: Abdominal Pain ([facility]) Additional Instructions: Please follow-up with your primary care physician in 2 to 3 days, if your symptoms are not improving, or getting worse, do not hesitate to return to the emergency department to be reevaluated. 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
--- NOTE | 2019-06-17 21:35 | RADIOLOGY REPORT (SQ) ---
EXAM DESCRIPTION: CT ABDOMEN PELVIS WITH IV CONTRAST COMPLETED DATE/TME: 06/17/2019 19:20 CLINICAL HISTORY: 58 years, Male, llq abdominal pain COMPARISON: None. TECHNIQUE: Contrast enhanced CT of the abdomen/pelvis was performed. Coronal and sagittal reformations were created. Images stored on PACS. All CT scanners at this facility use dose modulation, iterative reconstruction, and/or weight based dosing when appropriate to reduce radiation dose to as low as reasonably achievable (ALARA). [facility]: Dose Right [facility]: CareDose [facility]: Dose Right [facility]: Teradose 4D [facility]: [employer] LIMITATIONS: None. FINDINGS: Limited evaluation of the lower chest reveals bands of opacity about the lingula and left lower lobe, indicating areas of atelectasis or scar. Lung bases are otherwise clear. The liver is diffusely nodular in contour. No obvious focal liver lesions are appreciated. The spleen is enlarged, measuring 15.2 cm in length. Pancreas, gallbladder, and both adrenal glands appear normal. Both kidneys enhance symmetrically. No hydronephrosis or hydroureter. Urinary bladder is partially collapsed, thus its evaluation is limited. The small and large bowel appear normal in caliber without areas of focal wall thickening. No evidence of bowel obstruction. The appendix is normal. The left portal vein is chronically occluded with associated cavernous transformation. Gastric and splenic varices are noted. In addition, there is a splenorenal shunt. Calcifications are evident about the abdominal aorta. No suspicious lymphadenopathy is appreciated. Bone windows show no destructive osseous lesions. IMPRESSION: No acute abnormality within the abdomen or pelvis. 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 Splenomegaly with gastric and splenic varices with splenorenal shunt, indicating portal hypertension. TECHNICAL DOCUMENTATION: Quality ID # [id number]: Final reports with documentation of one or more dose reduction techniques (e.g., Automated exposure control, adjustment of the mA and/or kV according to patient size, use of iterative reconstruction technique) copyright 2011 [employer]- All Rights Reserved
== END 2019-06-17 22:41 | disposition home or self-care (01) ==
LOC: ER 13:17
DX: R10.32 Left lower quadrant pain (principal); R11.0 Nausea
CPT/HCPCS: 99284; 96374; 96375; 36415; 83690; 85025; 80053; 81001; 74177; J3010; J2270; J2405

== ENCOUNTER → 2020-02-08 | Outpatient (CLI) | payer MEDICARE ==
--- NOTE | 2020-02-08 11:13 | RADIOLOGY REPORT (SQ) ---
EXAM DESCRIPTION: U/S ABDOMEN COMPLETE W/O DOP COMPLETED DATE/TIME: 02/08/2020 10:45 am REASON FOR STUDY: ALCOHOLIC CIRRHOSIS OF LIVER WITH ASCITES (K70.31) K70.31 ALCOHOLIC CIRRHOSIS OF LIVER WITH ASCITES COMPARISON: 11/11/2018 TECHNIQUE: Dynamic and static grayscale images acquired of the abdomen and recorded on PACS. Additio nal selected color Doppler and spectral images recorded. Note: Study does not meet criteria for complete doppler/duplex scan LIMITATIONS: None. FINDINGS: PANCREAS: Partially visualized. LIVER: Coarsened echotexture with nodular contour. No focal lesions identified. LIVER VASCULATURE: Normal directional flow of the main portal vein and hepatic veins. GALLBLADDER: No stones. Normal wall thickness. No pericholecystic fluid. ULTRASOUND-DETECTED TEE'S SIGN: Negative. INTRAHEPATIC DUCTS AND COMMON DUCT: CBD and intrahepatic ducts normal caliber. No filling defects. INFERIOR VENA CAVA: Normal flow. AORTA: Scattered calcifications. Distal aorta measures up to 2.9 cm. RIGHT KIDNEY: Asymmetrically small measuring 9 cm. Normal echogenicity. No solid or suspicious m asses. No hydronephrosis. No calcifications. LEFT KIDNEY: Normal in size measuring 13.3 cm. Normal echogenicity. No solid or suspicious licha s. No hydronephrosis. No calcifications. SPLEEN: Mildly enlarged measuring 13.7 cm. PERITONEAL AND PLEURAL SPACES: No ascites or effusions. OTHER: No other significant finding. IMPRESSION: 1. Cirrhotic hepatic morphology. No significant ascites. 2. Mildly dilated aorta measuring up to 2.9 cm. Follow-up as below. COMMENT: AAA Size: Follow-up Recommendation 2.6-2.9 cm Every 5 years* *Based upon the Society for Vascular Surgery Guidelines: J Vasc Surg. 2009 Sep;50(4 Suppl):S2-49 *For aortas of maximum diameter of 2.6-2.9 cm meeting the criteria for AAA (?1.5 x proximal normal se gment) TECHNICAL DOCUMENTATION: JOB ID: [id number] 2010 [employer]- All Rights Reserved Reading location - IP/workstation name: [email or web address]
== END ==
LOC: RAD 09:29
PROVIDERS: ATTEND Internal Medicine Gastroenterology
DX: K70.31 Alcoholic cirrhosis of liver with ascites (principal); K76.6 Portal hypertension
CPT/HCPCS: 36415; 76700; 82105

== ENCOUNTER 2020-07-06 04:13 | Emergency (ER) | payer MEDICARE ==
[2020-07-06 05:53] LABS: ABSOLUTE EOSINOPHILS # (AUTO) 0.1 10^3/uL (0.0-0.6); ABSOLUTE LYMPHOCYTES (AUTO) 0.4 10^3/uL (0.5-4.7); ABSOLUTE MONOCYTES (AUTO) 0.3 10^3/uL (0.1-1.4); ABSOLUTE NEUT (AUTO) 1.7 10^3/uL (1.7-8.2); BASOPHILS % (AUTO) 1.3 % (0-2); EOSINOPHILS % (AUTO) 3.6 % (0-6); HEMATOCRIT 38.1 % (37.9-51.0); HEMOGLOBIN 13.2 g/dL (13.5-17.0); LYMPHOCYTES % (AUTO) 14.5 % (13-45); MEAN CORPUSCULAR HGB CONC 34.8 g/dL (32.0-36.0); MEAN CORPUSCULAR VOLUME 95 fl (80-97); MONOCYTES % (AUTO) 12.4 % (3-13); RED BLOOD COUNT 4.01 10^6/uL (4.35-5.55); RED CELL DISTRIBUTION WIDTH 15.8 % (11.5-14.0); SEGMENTED NEUTROPHILS % (AUTO) 68.2 % (42-78); TOTAL CELLS COUNTED % (AUTO) 100 %; WHITE BLOOD COUNT 2.5 10^3/uL (4.0-10.5)
[2020-07-06 06:01] LABS: ALBUMIN 3.2 g/dL (3.5-5.0); ALKALINE PHOSPHATASE 273 U/L (38-126); ASPARTATE AMINO TRANSFERASE 48 U/L (17-59); BILIRUBIN,DIRECT 0.4 mg/dL (0.0-0.4); BILIRUBIN,TOTAL 2.3 mg/dL (0.2-1.3); BLOOD UREA NITROGEN 13 mg/dL (7-20); CALCIUM 8.6 mg/dL (8.4-10.2); CARBON DIOXIDE 28 mmol/L (22-30); GLUCOSE 126 mg/dL (75-110); TOTAL PROTEIN 7.1 g/dL (6.3-8.2)
[2020-07-06 06:07] LABS: ANION GAP 5 (5-19); CHLORIDE 105 mmol/L (98-107)
[2020-07-06 06:12] LABS: APPEARANCE,URINE CLEAR; BILIRUBIN,URINE SMALL (NEGATIVE); GLUCOSE, URINE NEGATIVE (NEGATIVE); KETONES,URINE NEGATIVE (NEGATIVE); LEUKOCYTE ESTERASE,URINE NEGATIVE (NEGATIVE); NITRITE,URINE NEGATIVE (NEGATIVE); PROTEIN,URINE 30 mg/dL (NEGATIVE); URINE SPECIFIC GRAVITY 1.025
[2020-07-06 06:14] LABS: COLOR,URINE YELLOW
[2020-07-06 06:17] LABS: PLATELET COUNT 54 10^3/uL (150-450)
[2020-07-06] MEDS ORDERED: ONDANSETRON 4 MG TAB.RAPDIS PO ONE (06:44)
[2020-07-06] MEDS ORDERED: OXYCODONE HCL IR 5 MG TABLET PO ONE (06:44)
--- NOTE | 2020-07-06 06:47 | ER Document Report ---
ED General - General Chief Complaint: Abdominal Pain Stated Complaint: RIGHT FLANK PAIN Time Seen by Provider: 07/06/20 06:27 Primary Care Provider: FLORY GRAY NP [Primary Care Provider] - Follow up as needed TRAVEL OUTSIDE OF THE [place] IN LAST 30 DAYS: No - HPI Notes: Patient is a 59-year-old male with a history of liver disease who presents to the emergency department for evaluation of pain in his lower chest, upper abdomen. Is on the right side. It started over the last 2 days. He denies any injury. He states it is sharp, worsened with deep breaths. He denies any fevers or chills. No cough. No nausea or vomiting. He is not short of breath. He has been eating normally, normal urination and bowel movements He states he has had pain like this in the past, no clear etiology was found. He denies any history of DVT or PE, no family history of DVT or PE. He denies any prolonged immobilization, recent surgery, personal history of cancer. - Related Data Allergies/Adverse Reactions: No Known Allergies Allergy (Verified 07/06/20 04:57) Home Medications: List reviewed with patient Past Medical History - General Information source: Patient - Social History Smoking Status: Former Smoker Frequency of alcohol use: None - Quit drinking 3-1/2 years ago Drug Abuse: None Family History: Arthritis, CAD, CVA, Hyperlipidemia, Hypertension, Other - Past Medical History Cardiac Medical History: Denies: Hx Coronary Artery Disease, Hx Heart Attack, Hx Hypertension Pulmonary Medical History: Denies: Hx Asthma, Hx Bronchitis, Hx COPD, Hx Pneumonia Neurological Medical History: Denies: Hx Cerebrovascular Accident, Hx Seizures Renal/ Medical History: Denies: Hx Peritoneal Dialysis GI Medical History: Reports: Hx Cirrhosis - With ascites Musculoskeletal Medical History: Reports Hx Arthritis, Reports Hx Musculoskeletal Trauma - Fractured right ankle left knee and left rotator cuff injury Traumatic Medical History: Reports: Hx Fractures Past Surgical History: Reports: Hx Abdominal Surgery - multiple paracentesis fo, Hx Herniorrhaphy, Hx Orthopedic Surgery - Repair of left knee fractured right ankle fracture, Hx Umbilical Hernia - Immunizations Hx Diphtheria, Pertussis, Tetanus Vaccination: No Hx Pneumococcal Vaccination: 10/02/17 Review of Systems - Review of Systems Cardiovascular: See HPI Respiratory: See HPI Genitourinary: See HPI -: Yes All other systems reviewed and negative Physical Exam - Vital signs Vitals: Temp Pulse Resp BP Pulse Ox 98.4 F 82 20 135/85 H 98 07/06/20 04:24 07/06/20 04:24 07/06/20 04:24 07/06/20 04:24 07/06/20 04:24 - Notes Notes: Is a 59-year-old male appears stated age, no acute distress. Vital signs reviewed, please refer to chart. Head is normocephalic, atraumatic. Pupils equal round, reactive to light. Neck is supple without meningismus. Heart is regular rate and rhythm. Lungs are clear to auscultation bilaterally. No visible abnormality to the chest wall. He has some minimal tenderness to pal pation over the 11th rib. Abdomen is distended with large ascites, normoactive bowel sounds throughout. He has point tenderness just anterior to the anterior axillary line on the right at the level just inferior to the 12th rib. There is no rebound or guarding. Extremities without cyanosis, clubbing. Posterior calves are nontender. 1+ pitting edema noted to the pretibial regions bilaterally. Peripheral pulses are equal. Skin is warm and dry. Patient is awake, alert, neurological exam is nonfocal. Course - Re-evaluation Re-evalutation: 07/06/20 06:49 Patient presents to the emergency department for evaluation. He had laboratory investigations as ordered through protocol. Patient does have some pancytopenia, not unexpected in the cirrhotic patient. He has absolutely no constitutional symptoms, so I do not have a high suspicion for other significant intra-abdominal pathology causing his pain. He does not have any risk factors for PE. He is not short of breath. It seems more likely that that this is a mechanical pain, but given his history right upper quadrant ultrasound and chest x-ray were ordered. Patient is currently stable. He is medicated with oxycodone and Zofran, Zofran given to counteract any nausea with the oxycodone, we will continue to monitor. 07/06/20 09:35 Patient's ultrasound and chest x-ray are unremarkable for any acute process. The patient has pancytopenia which is not new. He feels improved after the oxycodone. I suspect this is a mechanical pain, given that it is very discrete, and not associated with any symptoms. I will send him home with a small amount of oxycodone and close follow-up. He understands that given his medical issues he needs to follow-up closely, and the development of any worsening pain or new symptoms should prompt immediate reevaluation. - Vital Signs Vital signs: Temp Pulse Resp BP Pulse Ox 97.5 F 78 18 120/67 100 07/06/20 08:59 07/06/20 08:59 07/06/20 08:59 07/06/20 08:59 07/06/20 08:59 - Laboratory Result Diagrams: 07/06/20 05:15 07/06/20 05:15 Laboratory results interpreted by me: 07/06/20 07/06/20 07/06/20 05:15 05:15 05:40 WBC 2.5 L RBC 4.01 L Hgb 13.2 L RDW 15.8 H Plt Count 54 L Absolute Lymphs (auto) 0.4 L Glucose 126 H Total Bilirubin 2.3 H Alkaline Phosphatase 273 H Albumin 3.2 L Urine Protein 30 H Urine Bilirubin SMALL H Urine Urobilinogen 4.0 H Urine Ascorbic Acid 40 H - Diagnostic Test Radiology reviewed: Reports reviewed Radiology results interpreted by me: 07/06/20 09:36 Abdomen Ultrasound 07/06/20 06:44 IMPRESSION: COARSE HETEROGENOUS NODULAR ECHOTEXTURE OF THE LIVER CONSISTENT CHRONIC CIRRHOSIS. NO FOCAL LESIONS. NO ACUTE FINDINGS. 07/06/20 09:37 Chest x-ray interpreted by radiology as showing atelectasis in the left lower lobe, otherwise no acute process Discharge - Discharge Clinical Impression: Right upper quadrant abdominal pain Condition: Stable Disposition: HOME, SELF-CARE Instructions: Abdominal Pain ([facility]) Additional Instructions: No worrisome cause was found for your abdominal pain today. Rest. Take pain medication as prescribed, please take this with food. Do not drive, watch for dizziness, drowsiness, constipation while taking this medication. If you develop fever, increased pain, vomiting, or any other new or concerning symptoms, please return immediately to the emergency department for evaluation. Referrals: FLORY GRAY NP [Primary Care Provider] - Follow up as needed
--- NOTE | 2020-07-06 07:11 | RADIOLOGY REPORT (SQ) ---
PA and lateral chest radiograph: 07/06/2020 6:09 AM CDT History: 59-year old patient with right-sided chest pain and abdominal pain. Comparison: None available Findings: The cardiomediastinal silhouette is enlarged. No pneumothorax is seen. No acute airspace opacities are seen. There is atelectasis at the left lung base. The lung volumes are low. Multilevel degenerative changes are seen within the thoracic spine. Impression: There is atelectasis at the left lung base.
--- NOTE | 2020-07-06 08:44 | RADIOLOGY REPORT (SQ) ---
EXAM DESCRIPTION: U/S ABDOMEN LIMITED W/O DOP IMAGES COMPLETED DATE/TIME: 07/06/2020 8:25 am REASON FOR STUDY: RUQ pain COMPARISON: None. TECHNIQUE: Dynamic and static grayscale images acquired of the right upper quadrant and recorded on PACS. Additional selected color Doppler and spectral images recorded. LIMITATIONS: Study limited due to acoustical interference from fat or from air in the bowel. FINDINGS: PANCREAS: Obscured by bowel gas. LIVER: Coarse heterogenous nodular echotexture. No focal lesions. LIVER VASCULATURE: Normal directional flow of the main portal vein and hepatic veins. GALLBLADDER: No stones. Normal wall thickness. No pericholecystic fluid. ULTRASOUND-DETECTED TEE'S SIGN: Negative. INTRAHEPATIC DUCTS AND COMMON DUCT: CBD and intrahepatic ducts normal caliber. No filling defects. INFERIOR VENA CAVA: Normal flow. AORTA: Obscured. RIGHT KIDNEY: Normal size. Normal echogenicity. No solid or suspicious masses. No hydronephrosis. No calcifications. PERITONEAL CAVITY AND RIGHT PLEURAL SPACE: No ascites or effusions. OTHER: No other significant finding. IMPRESSION: COARSE HETEROGENOUS NODULAR ECHOTEXTURE OF THE LIVER CONSISTENT CHRONIC CIRRHOSIS. NO F OCAL LESIONS. NO ACUTE FINDINGS. TECHNICAL DOCUMENTATION: JOB ID: [id number] 2010 [employer]- All Rights Reserved Reading location - IP/workstation name: [email or web address]
[2020-07-06 10:10] VITALS: BP 105/63
== END 2020-07-06 10:10 | disposition home or self-care (01) ==
LOC: ER 04:13
DX: R10.11 Right upper quadrant pain (principal); R07.9 Chest pain, unspecified; K74.60 Unspecified cirrhosis of liver; R18.8 Other ascites; D61.818 Other pancytopenia; Z87.891 Personal history of nicotine dependence; Z87.19 Personal history of other diseases of the digestive system
CPT/HCPCS: 99284; 36415; 83690; 85025; 80053; 81001; 71046; 76705; A9270 ×2; S0119

== ENCOUNTER → 2020-11-17 | Outpatient (CLI) | payer MEDICARE ==
--- NOTE | 2020-11-17 14:38 | RADIOLOGY REPORT (SQ) ---
EXAM DESCRIPTION: CT ABDOMEN COMBO IMAGES COMPLETED DATE/TIME: 11/17/2020 1:54 pm REASON FOR STUDY: ALCOHOLIC CIRRHOSIS OF LIVER WITH ASCITES K70.31 ALCOHOLIC CIRRHOSIS OF LIVER WIT H ASCITES R94.5 ABNORMAL RESULTS OF LIVER FUNCTION STUDIES COMPARISON: 06/17/2019 TECHNIQUE: CT scan of the abdomen performed with and without intravenous contrast, and without oral contrast. Contrasted imaging performed using helical scanning technique with dynamic intravenous cont rast injection. Images reviewed with lung, soft tissue, and bone windows. Reconstructed coronal and s agittal MPR images reviewed. Delayed images for evaluation of the urinary system also acquired and ev aluated. All images stored on PACS. All CT scanners at this facility use dose modulation, iterative reconstruction, and/or weight based d osing when appropriate to reduce radiation dose to as low as reasonably achievable (ALARA). [facility]: Dose Right [facility]: CareDose [facility]: Dose Right [facility]: Teradose 4D [facility]: NuVasive CONTRAST TYPE AND DOSE: contrast/concentration: Isovue 350.00 mmol/ml; Total Contrast Delivered: 68. 0 ml; Total Saline Delivered: 68.0 ml RENAL FUNCTION: GFR > 60. RADIATION DOSE: CT Rad equipment meets quality standard of care and radiation dose reduction techniq ues were employed. CTDIvol: 22.5 - 24.4 mGy. DLP: 3551 mGy-cm.. LIMITATIONS: None. FINDINGS: LOWER CHEST: Left basilar scarring. LIVER: Heterogeneous attenuation and nodularity without focal lesion. No dilated ducts. SPLEEN: Enlarged. No focal lesions. PANCREAS: No masses. No significant calcifications. No adjacent inflammation or peripancreatic fluid collections. Pancreatic duct not dilated. GALLBLADDER: No identified stones by CT criteria. No inflammatory changes to suggest cholecystitis. ADRENAL GLANDS: No significant masses or asymmetry. RIGHT KIDNEY AND URETER: No solid masses. No significant calcifications. No hydronephrosis or hyd roureter. LEFT KIDNEY AND URETER: No solid masses. No significant calcifications. No hydronephrosis or hydr oureter. AORTA AND VESSELS: Thrombosed main portal vein. Gastric varices and splenorenal shunt. No aneurysm. RETROPERITONEUM: No retroperitoneal adenopathy, hemorrhage or masses. BOWEL AND PERITONEAL CAVITY: No masses or inflammatory changes. No free fluid or peritoneal masses. APPENDIX: Not visualized. ABDOMINAL WALL: No masses. No hernias. BONES: No significant or acute findings. OTHER: No other significant finding. IMPRESSION: 1. Cirrhosis. No focal lesions or ascites. Thrombosed main portal vein. Portal hypertension. 2. Stable splenomegaly. TECHNICAL DOCUMENTATION: JOB ID: [id number] Quality ID # [id number]: Final reports with documentation of one or more dose reduction techniques (e.g., Au tomated exposure control, adjustment of the mA and/or kV according to patient size, use of iterative reconstruction technique) 2010 [employer]- All Rights Reserved Reading location - IP/workstation name: [email or web address]
== END ==
LOC: RAD 13:23
PROVIDERS: ATTEND Internal Medicine Gastroenterology
DX: K70.31 Alcoholic cirrhosis of liver with ascites (principal); R94.5 Abnormal results of liver function studies; R16.1 Splenomegaly, not elsewhere classified
CPT/HCPCS: 74170